=== PATIENT | female | born 1940 | race Caucasian/White ===

== ENCOUNTER 2021-11-17 14:12 | Inpatient (IN) ==
[2021-11-17 14:40] LABS: BILIRUBIN,URINE NEGATIVE (NEGATIVE); BLOOD/HEMOGLOBIN,URINE 1+ (NEGATIVE); GLUCOSE, URINE 1+ (NEGATIVE); KETONES,URINE 2+ (NEGATIVE); LEUKOCYTE ESTERASE ,URINE 2+ (NEGATIVE); NITRITES,URINE NEGATIVE (NEGATIVE); PROTEIN,URINE 2+ (NEGATIVE); UROBILINOGEN,URINE 1+ (NORMAL)
--- NOTE | 2021-11-17 14:55 | RAD ---
HISTORYShortness of breath, fever, recent COVID-19STUDYChest AP portableCOMPARISONNoneFINDINGSHeart is mildly enlarged. No congestive heart failure is noted. Aorta is calcified. Right paratracheal prominence is likely due to tortuous vascularity. There is subtle abnormal parenchymal density in the right lung base suspicious for a developing infiltrate. Follow-up of this area is recommended. The remainder of the lung tena are clear. No pleural effusion or pneumothorax is identified. Bony thorax is unremarkable.IMPRESSIONMild cardiomegaly without congestive heart failureSubtle increased density in the right lung base suspicious for developing infiltrate. Follow-up of this area is recommended.Electronically signed by: DEYVI BENSON (Nov 17, 2021 14:54:03)
--- NOTE | 2021-11-17 14:55 | DR.DIZZY ---
HPI Time seen Time Seen by Provider: 11/17/21 14:52 PCP Primary Care Physician: Pratik HPI Comment HPI Comment: An 81 y/o female who was brought into the ED at daughter's request. Pt states that she has felet dizzy like she would fall and had to hold unto items. She couldn't tell me how long this has been. She denies chest pain or SOB. The EMS staff informs me that her daughter had provided information about fever and confusion. THere was an appt. with her PCP today but the daughter couldn't get her dressed to go for that appt. She was recently diagnosed with COVID. Complaint Chief Complaint:: EMS states family called 911 due to patient having weakness and confusion. Pt recently had covid. Pt is alert and answers name, and current location. COVID-19 Coronavirus risk:travel/contact w/high risk person: No Has patient experienced Coronavirus symptoms: Yes Coronavirus symptoms experienced: Fever Nurses Notes Reviewed Nurses Notes Review: Yes Source History Provided: Patient and EMS Mode of Arrival Mode of Arrival: Stretcher Timing Onset of Chief Complaint: 11/17/21 Location of Weakness Weakness Location: Generalized Context Onset: At rest Does pt take pot. toxic medication?: No History of: None Stroke Symptoms: None Severity Severity: Normal activity level Associated signs and symptoms Associated Signs and Symptoms: Faintness, Imbalance and Weak PMH PMH Past Medical History: Yes Past Medical History: Hypertension Past Surgical History: Yes Surgical History: Hysterectomy and Ortho Surgery Family History History of Family Medical Conditions: Yes Family Medical History: Diabetes Mellitus Social History Does patient currently use any type of tobacco product: No Have you used tobacco products in the last 12 months: No Type of Tobacco Use: None Does any household member use tobacco: No Alcohol Use: None Do you use any recreational Drugs:: No Lives With: Family Lives Where: Home Travel Risk Coronavirus risk:travel/contact w/high risk person: No Has patient experienced Coronavirus symptoms: Yes Coronavirus symptoms experienced: Fever Infectious screening In the last 2 months have you had wt loss of >10#?: NO Have you had fever, night sweats or hemotysis?: No Have you traveled outside the country in the last 6 months?: No Isolation: Standard ROS Review of Systems Constitutional: Fever and Weakness Eyes: No Symptoms Reported ENTM: No Symptoms Reported Respiratoy: No Symptoms Reported Cardiovascular: No Symptoms Reported Gastrointestinal/Abdominal: No Symptoms Reported Genitourinary: No Symptoms Reported Neurological: No Symptoms Reported Musculoskeletal: No Symptoms Reported Integumentary: No Symptoms Reported Hematologic/Lymphatic: No Symptoms Reported Endocrine: No Symptoms Reported Psychiatric: No Symptoms Reported PE Vital Signs Vitals: Temperature 103.4 F Pulse Rate 94 Respiratory Rate 41 Blood Pressure [Left Arm] 132/68 Blood Pressure 141/69 O2 Sat by Pulse Oximetry 96 General Limitations: No Limitations General Appearance: Alert and In No Apparent Distress Head Head Exam: Normal Inspection, Atraumatic and Normocephalic Eyes Eye exam: Normal Appearance and EOMI ENT ENT Exam: Normal Exam, Normal Oropharynx, Normal External Ear Exam, Mucous Membranes Moist and TM's Normal Bilaterally Neck Neck Exam: Normal Inspection, Full ROM and Trachea Midline Chest Chest Inspection: Normal Inspection and Symmetric Chest Wall Rise Respiratory Respiratory Exam: Normal Lung Sounds Bilat Cardiovascular Cardiovascular Exam: Regular Rate, Normal Rhythm, Normal Heart Sounds, +S1 and +S2 Abdominal Exam Abdominal Exam: Normal Inspection, Normal Bowel Sounds and Soft Rectal Rectal Exam: Deferred Extremeties Extremities Exam: Normal Inspection and Full ROM Back Back Exam: Normal Inspection and Full ROM Neurologic Neurological Exam: Alert and CN II-XII Intact Patient Oriented To: Person and Place Speech: Fluid Speech Psychiatric Psychiatric Exam: Normal Affect and Normal Mood Skin Skin Exam: Intact MDM Differential Diagnosis Differential Diagnosis: Anemia, CVA, Dehydration, Electrolyte disorder and Peripheral Vertigo COURSE Treatment Treatment: Name: ASHLEY SZYMANSKI OAcct#: [id number]: [id number] : 1940Sex: FLocation: ER Order Number(s): [id number](s):CHEST, 1 VIEW Ordering Physician: LINDA PUGA Primary Care: Gino Christie Service Date: 11/17/21 Service Time: 1438 HISTORY Shortness of breath, fever, recent COVID-19 STUDY Chest AP portable COMPARISON None FINDINGS Heart is mildly enlarged. No congestive heart failure is noted. Aorta is calcified. Right paratracheal prominence is likely due to tortuous vascularity. There is subtle abnormal parenchymal density in the right lung base suspicious for a developing infiltrate. Follow-up of this area is recommended. The remainder of the lung tena are clear. No pleural effusion or pneumothorax is identified. Bony thorax is unremarkable. IMPRESSION Mild cardiomegaly without congestive heart failure Subtle increased density in the right lung base suspicious for developing infiltrate. Follow-up of this area is recommended. Electronically signed by: DEYVI BENSON (Nov 17, 2021 14:54:03) Report Electronically signed: 11/17/21 [id number] CC: Mumtaz Pugamanuelerica Reevaluation 1st: Unchanged Consultation Consultation Comments: Recommendation for admission was agreed to by Dr. Christie, after I spoke with him about the pt's. presentation, clinical and lab. findings. Education/Counseling Education/Counseling: Patient and Education Educated On: Treatment, Diagnosis, Prognosis and Needs for Follow Up ROR Labs Reviewed Result Diagrams: 11/17/21 15:00 11/17/21 15:00 Laboratory: WBC 9.3 X10^3/uL (3.6-10.0) 11/17/21 15:00 RBC 3.63 X10^6/uL (3.5-5.4) 11/17/21 15:00 Hgb 10.6 g/dL (12.0-16.0) L 11/17/21 15:00 Hct 30.5 % (36.0-47.0) L 11/17/21 15:00 MCV 84.2 fL (80.0-100.0) 11/17/21 15:00 MCH 29.3 pg (27.0-34.0) 11/17/21 15:00 MCHC 34.8 g/dL (33.0-35.0) 11/17/21 15:00 RDW 13.7 % (11.6-16.5) 11/17/21 15:00 Plt Count 322 X10^3/uL (150.0-450.0) 11/17/21 15:00 MPV 8.0 fL (7.4-11.0) 11/17/21 15:00 Neut % (Auto) 80.1 % (42.0-75.0) H 11/17/21 15:00 Lymph % (Auto) 10.7 % (21.0-51.0) L 11/17/21 15:00 [place] % (Auto) 8.7 % (0.0-13.0) 11/17/21 15:00 Eos % (Auto) 0.0 % (0.9-2.9) L 11/17/21 15:00 Baso % (Auto) 0.5 % (0.2-1.0) 11/17/21 15:00 Neut # (Auto) 7.4 x10^3/uL (2.2-4.8) H 11/17/21 15:00 Lymph # (Auto) 1.0 X10^3/uL (1.3-2.9) L 11/17/21 15:00 [place] # (Auto) 0.8 x10^3/uL (0.3-0.8) 11/17/21 15:00 Eos # (Auto) 0.0 x10^3/uL (0.0-0.2) 11/17/21 15:00 Baso # (Auto) 0.0 X10^3/uL (0.0-0.1) 11/17/21 15:00 Absolute Nucleated RBC 0.0 /100WBC 11/17/21 15:00 Sodium 134 mmol/L (136-145) L 11/17/21 15:00 Corrected Sodium TNP 11/17/21 15:00 Potassium 2.9 mmol/L (3.5-5.1) L* 11/17/21 15:00 Chloride 98 mmol/L (98-107) 11/17/21 15:00 Carbon Dioxide 27.8 mmol/L (21-32) 11/17/21 15:00 BUN 10 mg/dL (7-18) 11/17/21 15:00 Creatinine 0.97 mg/dL (0.55-1.02) 11/17/21 15:00 Est GFR (MDRD) Af Amer > 60 (>60) 11/17/21 15:00 Est GFR (MDRD) Non-Af 58 (>60) L 11/17/21 15:00 Glucose 109 mg/dL (65-99) H 11/17/21 15:00 Calcium 7.5 mg/dL (8.5-10.1) L 11/17/21 15:00 Corrected Calcium 8.5 mg/dL (8.5-10.1) 11/17/21 15:00 Total Bilirubin 1.30 mg/dL (0.2-1.0) H 11/17/21 15:00 AST 23 Units/L (15-37) 11/17/21 15:00 ALT 15 Units/L (12-78) 11/17/21 15:00 Alkaline Phosphatase 91 Units/L (46-116) 11/17/21 15:00 Creatine Kinase 90 Units/L (26-192) 11/17/21 15:00 CK-MB (CK-2) 0.6 ng/mL (0-4.0) 11/17/21 15:00 CK/CKMB % Calc 0.7 % (<4) 11/17/21 15:00 Troponin I High Sens 16.3 ng/L (4.0-60.0) 11/17/21 15:00 Total Protein 6.7 g/dL (6.4-8.2) 11/17/21 15:00 Albumin 2.8 g/dL (3.4-5.0) L 11/17/21 15:00 Globulin 3.9 g/dL (2.5-4.5) 11/17/21 15:00 Albumin/Globulin Ratio 0.7 Ratio (1.1-2.1) L 11/17/21 15:00 Specimen Type Catherized urine 11/17/21 14:29 Urine Color Yellow (YELLOW) 11/17/21 14: Urine Appearance Clear (CLEAR) 11/17/21 14:29 Urine pH 7.0 (5.0 - 8.0) 11/17/21 14:29 Ur Specific [place] 1.010 (1.000-1.030) 11/17/21 14:29 Urine Protein 2+ (NEGATIVE) 11/17/21 14: Urine Glucose (UA) 1+ (NEGATIVE) 11/17/21 14:29 Urine Ketones 2+ (NEGATIVE) 11/17/21 14:29 Urine Occult Blood 1+ (NEGATIVE) 11/17/21 14: Urine Nitrite Negative (NEGATIVE) 11/17/21 14: Urine Bilirubin Negative (NEGATIVE) 11/17/21 14: Urine Urobilinogen 1+ (NORMAL) 11/17/21 14:29 Ur Leukocyte Esterase 2+ (NEGATIVE) 11/17/21 14:29 Urine RBC 3-5 /HPF (0-3) A 11/17/21 14:29 Urine WBC 20-30 /HPF (0-5) A 11/17/21 14:29 Ur Squamous Epith Cells Few /HPF (NEGATIVE) 11/17/21 14:29 Amorphous Sediment Trace /HPF (NEGATIVE) 11/17/21 14:29 Urine Bacteria 1+ /HPF (NEGATIVE) 11/17/21 14:29 Hyaline Casts Rare /LPF (NEGATIVE) 11/17/21 14:29 Urine Mucus Few /HPF (NEGATIVE) 11/17/21 14:29 Ur Culture Indicated? Yes/culture set up 11/17/21 14:29 Influenza Type A Ag Negative-presumptive (NEGATIVE) 11/17/21 15:22 Influenza Type B Ag Negative-presumptive (NEGATIVE) 11/17/21 15:22 SARS CoV-2 RNA Rapid ALONA Positive (NEGATIVE) A 11/17/21 16:44 S. pyogenes (TEM-PCR) Not detected (NOT DETECT) 11/17/21 15:22 EKG Rate: 102 [place]: Normal Rhythm: ST Block: None Hypertrophy: None ST: Normal Opioid Opioid Risk Tool Age (Marcio box if 16-45): No History of Preadolescent Sexual Abuse: No Total: 0 Total Score Risk Category: Low Risk Copyright: [facility] predicting aberrant behaviors Diagnosis Discharge Problem: Weakness, Acute UTI Pneumonia Qualifiers: Pneumonia type: due to unspecified organism Laterality: right Lung location: lower lobe of lung Qualified Code(s): J18.9 - Pneumonia, unspecified organism Instructions Instructions: Urinary Tract Infection, Adult, [id number] Community-Acquired Pneumonia, Adult, [id number] ADDITIONAL NOTES Additional Notes Additional Notes: Name: ASHLEY SZYMANSKI OAcct#: [id number]: [id number] : 1940Sex: FLocation: ER Order Number(s): [id number](s):BRAIN W/O CON Ordering Physician: LINDA PUGA Primary Care: Gino Christie Service Date: 11/17/21 Service Time: 1453 EXAM: HEAD CT WITHOUT INTRAVENOUS CONTRAST HISTORY: Confusion. TECHNIQUE: Spiral axial CT images are obtained through the brain without the administration of intravenous contrast. Sagittal and coronal images are reformatted. DOSIMETRY: Total DLP 1294.1 mGycm; CTDI 70.8 mGy COMPARISON: None available. FINDINGS: There are extensive patchy parenchymal lucencies seen throughout the white matter tracts of the centrum semiovale, consistent with chronic sequela of atherosclerotic microvascular ischemic disease. Please note that small or subtle acute infarction can be obscured in this radiologic setting. Consider followup MRI with diffusion weighted imaging if clinically warranted. There is no gross acute territorial infarction seen. Nonspecific pineal gland calcification is seen. There is mild diffuse cerebral cortical atrophy, in keeping with the patient's advanced age. There is no intra-axial or extra-axial hemorrhage seen. No intra-axial or extra-axial mass lesions are noted. There is no hydrocephalus. There is no midline shift or other mass effect seen. The calvarium is intact. The partially imaged paranasal sinuses, middle ear cavities and mastoid air cells are clear. IMPRESSION: 1. 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 No gross acute infarction seen; however, small or subtle acute infarctions can be obscured in this radiologic setting. Consider followup MRI with diffusion weighted imaging if clinically warranted. 3. Mild diffuse cerebral cortical atrophy in keeping with the patient's advanced age. Electronically signed by: Nirmal Colin (Nov 17, 2021 15:48:48) Report Electronically signed: 11/17/21 3044 CC: Linda Puga
[2021-11-17 15:08] LABS: APPEARANCE,URINE CLEAR (CLEAR); COLOR,URINE YELLOW (YELLOW)
[2021-11-17 15:09] LABS: BACTERIA,URINE 1+ /HPF (NEGATIVE); HYALINE CASTS, URINE RARE /LPF (NEGATIVE); SQUAMOUS EPITHELIAL CELL,UR FEW /HPF (NEGATIVE)
[2021-11-17 15:28] LABS: BASOPHILS % (AUTO) 0.5 % (0.2-1.0); HEMATOCRIT 30.5 % (36.0-47.0); HEMOGLOBIN 10.6 g/dL (12.0-16.0); LYMPHOCYTES % (AUTO) 10.7 % (21.0-51.0); MEAN CORPUSCULAR HEMOGLOBIN 29.3 pg (27.0-34.0); MEAN CORPUSCULAR HGB CONC 34.8 g/dL (33.0-35.0); MEAN CORPUSCULAR VOLUME 84.2 fL (80.0-100.0); MONOCYTES # (AUTO) 0.8 x10^3/uL (0.3-0.8); MONOCYTES % (AUTO) 8.7 % (0.0-13.0); NEUTROPHILS # (AUTO) 7.4 x10^3/uL (2.2-4.8); NEUTROPHILS % (AUTO) 80.1 % (42.0-75.0); RED BLOOD COUNT 3.63 X10^6/uL (3.5-5.4); RED CELL DISTRIBUTION WIDTH 13.7 % (11.6-16.5); WHITE BLOOD COUNT 9.3 X10^3/uL (3.6-10.0)
[2021-11-17 15:46] LABS: ALANINE AMINOTRANSFERASE 15 Units/L (12-78); ALBUMIN 2.8 g/dL (3.4-5.0); ALKALINE PHOSPHATASE 91 Units/L (46-116); ASPARTATE AMINO TRANSFERASE 23 Units/L (15-37); BLOOD UREA NITROGEN 10 mg/dL (7-18); CALCIUM 7.5 mg/dL (8.5-10.1); CARBON DIOXIDE 27.8 mmol/L (21-32); CHLORIDE 98 mmol/L (98-107); COR CA(FOR HYPOALB) 8.5 mg/dL (8.5-10.1); CREATININE 0.97 mg/dL (0.55-1.02); SODIUM 134 mmol/L (136-145); TOTAL PROTEIN 6.7 g/dL (6.4-8.2); eGFR NON BLACK RACES 58 (>60)
--- NOTE | 2021-11-17 15:50 | CT ---
EXAM: HEAD CT WITHOUT INTRAVENOUS CONTRASTHISTORY: Confusion.TECHNIQUE: Spiral axial CT images are obtained through the brain without the administration of intravenous contrast. Sagittal and coronal images are reformatted.DOSIMETRY: Total DLP 1294.1 mGycm; CTDI 70.8 mGyCOMPARISON: None available.FINDINGS:There are extensive patchy parenchymal lucencies seen throughout the white matter tracts of the centrum semiovale, consistent with chronic sequela of atherosclerotic microvascular ischemic disease. Please note that small or subtle acute infarction can be obscured in this radiologic setting. Consider followup MRI with diffusion weighted imaging if clinically warranted. There is no gross acute territorial infarction seen. Nonspecific pineal gland calcification is seen.There is mild diffuse cerebral cortical atrophy, in keeping with the patient's advanced age. There is no intra-axial or extra-axial hemorrhage seen. No intra-axial or extra-axial mass lesions are noted. There is no hydrocephalus. There is no midline shift or other mass effect seen. The calvarium is intact. The partially imaged paranasal sinuses, middle ear cavities and mastoid air cells are clear.IMPRESSION:1. 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 No gross acute infarction seen; however, small or subtle acute infarctions can be obscured in this radiologic setting. Consider followup MRI with diffusion weighted imaging if clinically warranted.3. Mild diffuse cerebral cortical atrophy in keeping with the patient's advanced age.Electronically signed by: Nirmal Colin (Nov 17, 2021 15:48:48)
[2021-11-17 16:01] LABS: CKMB % 0.7 % (<4); CREATINE KINASE MB 0.6 ng/mL (0-4.0)
[2021-11-17] MEDS ORDERED: KLOR-CON ONE (16:28)
[2021-11-17] MEDS ORDERED: VIBRAMYCIN PO ONE ×2 (17:16→17:23)
[2021-11-17] MEDS ORDERED: ROCEPHIN VIAL 1 GRAM 1 G in NS 100 ML IV 100 ML IV ONE (17:17)
[2021-11-17] MEDS ORDERED: ROCEPHIN 1 GRAM IV PREMIX 1 G/50 ML IV.SOLN. IV ONE (17:23)
[2021-11-17 17:52] LABS: ALANINE AMINOTRANSFERASE 14 Units/L (12-78); ALBUMIN 2.7 g/dL (3.4-5.0); ALKALINE PHOSPHATASE 86 Units/L (46-116); ASPARTATE AMINO TRANSFERASE 20 Units/L (15-37); BLOOD UREA NITROGEN 10 mg/dL (7-18); CALCIUM 7.4 mg/dL (8.5-10.1); CARBON DIOXIDE 24.4 mmol/L (21-32); CHLORIDE 98 mmol/L (98-107); COR CA(FOR HYPOALB) 8.4 mg/dL (8.5-10.1); COR NA(FOR HYPERGLY) 134 mmol/L (136-145); CREATININE 0.99 mg/dL (0.55-1.02); SODIUM 132 mmol/L (136-145); TOTAL PROTEIN 6.5 g/dL (6.4-8.2); eGFR NON BLACK RACES 57 (>60)
[2021-11-17] MEDS ORDERED: PULMICORT NEB TX 0.5 MG NEB ONE (19:56)
[2021-11-17] MEDS ORDERED: BROVANA ONE (19:56)
[2021-11-17] MEDS ORDERED: ACCUNEB 1.25 MG NEBULE ONE (19:56)
[2021-11-17] MEDS ORDERED: KLOR-CON PO ONE (21:00)
[2021-11-17] MEDS ORDERED: VIBRAMYCIN 100 MG in NS 100 ML IV + SPIKE MINIBAG* 100 ML IV SCH (21:00)
[2021-11-17] MEDS ORDERED: NS 1/2 1,000 ML IV 1,000 ML IV ONE (21:23)
[2021-11-17] MEDS: ROBITUSSIN DM PO SCH (21:30)
[2021-11-17] MEDS: NS 1/2 1,000 ML IV 1,000 ML IV SCH (21:30)
[2021-11-17] MEDS: TYLENOL 325 MG TAB PO PRN (21:30)
[2021-11-17] MEDS: EXELON PO SCH (21:30)
[2021-11-17] MEDS: ACCUNEB 1.25 MG NEBULE NEB SCH (21:40)
[2021-11-17] MEDS: PULMICORT NEB TX 0.5 MG NEB SCH (21:40)
[2021-11-17] MEDS: BROVANA IN SCH (21:40)
[2021-11-18 04:53] LABS: BASOPHILS # (AUTO) 0.1 X10^3/uL (0.0-0.1); BASOPHILS % (AUTO) 0.7 % (0.2-1.0); EOSINOPHILS % (AUTO) 0.1 % (0.9-2.9); HEMATOCRIT 27.5 % (36.0-47.0); HEMOGLOBIN 9.6 g/dL (12.0-16.0); LYMPHOCYTES # (AUTO) 1.4 X10^3/uL (1.3-2.9); LYMPHOCYTES % (AUTO) 17.2 % (21.0-51.0); MEAN CORPUSCULAR HEMOGLOBIN 29.5 pg (27.0-34.0); MEAN CORPUSCULAR HGB CONC 34.8 g/dL (33.0-35.0); MEAN CORPUSCULAR VOLUME 84.7 fL (80.0-100.0); MEAN PLATELET VOLUME 8.1 fL (7.4-11.0); MONOCYTES # (AUTO) 1.2 x10^3/uL (0.3-0.8); MONOCYTES % (AUTO) 15.1 % (0.0-13.0); NEUTROPHILS # (AUTO) 5.5 x10^3/uL (2.2-4.8); NEUTROPHILS % (AUTO) 66.9 % (42.0-75.0); RED BLOOD COUNT 3.25 X10^6/uL (3.5-5.4); WHITE BLOOD COUNT 8.2 X10^3/uL (3.6-10.0)
[2021-11-18 05:03] LABS: ALANINE AMINOTRANSFERASE 13 Units/L (12-78); ALBUMIN 2.4 g/dL (3.4-5.0); ALKALINE PHOSPHATASE 73 Units/L (46-116); ASPARTATE AMINO TRANSFERASE 21 Units/L (15-37); BLOOD UREA NITROGEN 10 mg/dL (7-18); CALCIUM 7.4 mg/dL (8.5-10.1); CARBON DIOXIDE 26.6 mmol/L (21-32); CHLORIDE 102 mmol/L (98-107); COR CA(FOR HYPOALB) 8.7 mg/dL (8.5-10.1); COR NA(FOR HYPERGLY) 135 mmol/L (136-145); CREATININE 0.85 mg/dL (0.55-1.02); MAGNESIUM 1.9 mg/dL (1.7-2.9); SODIUM 134 mmol/L (136-145); TOTAL PROTEIN 5.8 g/dL (6.4-8.2); eGFR NON BLACK RACES > 60 (>60)
--- NOTE | 2021-11-18 05:52 | RAD ---
PROCEDURE: Chest X-ray 1 View .HISTORY: LUNG INFILTRATE .TECHNIQUE: AP view .COMPARISON: 11/17/2021.TECHNICAL QUALITY: Satisfactory .FINDINGS:Unremarkable cardio mediastinal silhouette and normal central vascularity.Consolidation right base slightly increased in density since previous study. Left lung tena clear. No pleural fluid.IMPRESSION:Increase in pneumonia right base.Electronically signed by: Romie Garcia (Nov 18, 2021 05:50:47)
[2021-11-18 05:53] LABS: ABG HCO3 27.6 mmol/L (22-26)
[2021-11-18] MEDS ORDERED: MICRO K EXTEN CAP 10 MEQ PO PRN (05:53)
[2021-11-18] MEDS ORDERED: POTASSIUM CHL 60 MEQ/NS 0.45% 500 ML IV PRN (05:53)
[2021-11-18] MEDS ORDERED: POTASSIUM CHL 40 MEQ/NS 0.45% 500 ML IV PRN (05:53)
[2021-11-18] MEDS ORDERED: K-DUR TAB 20 MEQ PO PRN (05:53)
[2021-11-18 05:54] LABS: ABG ALLEN TEST POS
[2021-11-18] MEDS: ACCUNEB 1.25 MG NEBULE NEB SCH ×3 (06:10→20:20)
[2021-11-18] MEDS: POTASSIUM CHLORIDE LIQ 20 MEQ UDC PO PRN (06:47)
[2021-11-18] MEDS ORDERED: NS 1/2 1,000 ML IV 1,000 ML IV ONE ×2 (08:44→21:27)
[2021-11-18] MEDS: NS 1/2 1,000 ML IV 1,000 ML IV SCH ×2 (08:50→21:58)
[2021-11-18] MEDS: ROBITUSSIN DM PO SCH ×4 (08:51→21:45)
[2021-11-18] MEDS: EXELON PO SCH ×2 (08:51→21:45)
[2021-11-18] MEDS: NORVASC TAB 5 MG PO SCH (08:51)
[2021-11-18] MEDS: VSL#3 PO SCH (08:51)
[2021-11-18] MEDS ORDERED: REMDESIVIR 200 MG in NS 250 ML IV 250 ML IV NR (08:52)
[2021-11-18] MEDS ORDERED: PHARMACY CONSULT - IVERMECTIN XX SCH (09:00)
[2021-11-18] MEDS ORDERED: VIBRAMYCIN 100 MG in D5W 250 ML IV 250 ML IV SCH (09:00)
[2021-11-18] MEDS ORDERED: ROCEPHIN 1 GRAM IV PREMIX 1 G/50 ML IV.SOLN. IV SCH (09:00)
[2021-11-18] MEDS ORDERED: KLOR-CON PO SCH (09:00)
[2021-11-18] MEDS ORDERED: VIBRAMYCIN 100 MG in NS 100 ML IV 100 ML IV SCH (09:00)
[2021-11-18] MEDS ORDERED: LUVOX PO SCH (09:00)
[2021-11-18] MEDS: PULMICORT NEB TX 0.5 MG NEB SCH ×2 (09:10→20:20)
[2021-11-18] MEDS: BROVANA IN SCH ×2 (09:10→20:20)
[2021-11-18] MEDS ORDERED: LOVENOX INJ 40 MG SYR SC SCH (10:00)
[2021-11-18] MEDS ORDERED: FORTAZ or TAZICEF VIAL INJ 1 G in NS 100 ML IV + SPIKE MINIBAG* 100 ML IV SCH (10:00)
--- NOTE | 2021-11-18 10:17 | DR.H&P ---
H&P - History & Physical for Day of: H&P Date: 11/17/21 - Chief Complaint Chief Complaint: DIZZINESS, WEAKNESS, FEVER, AMS - History of Present Illness History of Present Illness: IS A 81 YEAR OLD PATIENT OF OURS. SHE PRESENTED TO THE ER WITH PATIENTS DAUGHTER REPORTING THAT PATIENT HAS HAD DIZZINESS, WEAKNESS, FEVER, AMS. SYMPTOMS STARTED TWO DAYS PRIOR. SHE WAS DIAGNOSED WITH COVID-19 ALMOST 4 WEEKS AGO. SHE HAS HAD AN OCCASIONAL NON- PRODUCTIVE COUGH. SHE DENIES SHORTNESS OF BREATH. PMH INCLUDES HTN, ARTHRITIS. UPON EXAMINATION, PATIENT WAS ALERT TO NAME, , AND LOCATION. SHE WAS ABLE TO FOLLOW COMMANDS. SHE ARRIVED ON OXYGEN VIA NASAL CANNULA AT 4 LPM. WHEN TAKEN OFF OF OXYGEN TO ASSESS 02, SATURATIONS WERE 89%. WHEN OXYGEN WAS REPLACED AT 2 LPM, SATURATIONS INCREASED TO 94%. VITALS WERE: 103.4-101-20-89%RA-117/69. LABS WERE OBTAINED. WBC 9.3, RBC 3.63, HGB 10.6, HCT 30.5, D-DIMER 3.70, SODIUM 134, POTASSIUM 2.9, BUN 10, CREATININE 0.97, GLUCOSE 109, CALCIUM 7.5, TOTAL BILI 1.30, AST 23, ALT 15, ALK PHOS 91, TOTAL PROTEIN 6.7, ALBUMIN 2.8. CARDIAC ENZYMES WITHIN NORMAL LIMITS. URINALYSIS REVEALED: WBC 20-30, RBC 3-5, LEUKOCYTES 2+, BACTERIA 1+. A URINE CULTURE AND BLOOD CULTURES WERE SET UP. ABG REVEALED: PH 7.480, PC02 37, P02 53, HC03 27.6, 02 SAT 90, FI02 28.0. COVID-19 POSITIVE. INFLUENZA AND STREP NEGATIVE. A CHEST XRAY WAS OBTAINED AND REVEALED: Mild cardiomegaly without congestive heart failure. Subtle increased density in the right lung base suspicious for developing infiltrate. EKG REVEALED: SINUS TACHYCARDIA WITH HR 102. A BRAIN CT WITHOUT CONTRAST WAS OBTAINED AND REVEALED: 1. 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 2. No gross acute infarction seen; however, small or subtle acute infarctions can be obscured in this radiologic setting. Consider followup MRI with diffusion weighted imaging if clinically warranted.3. Mild diffuse cerebral cortical atrophy in keeping with the patient's advanced age. IN THE ER, SHE WAS GIVEN KLOR-CON 20MEQ PO X 2 DOSES, VIBRAMYCIN 100MG PO X 1, ROCEPHIN 1G IV X 1. SHE WAS ADMITTED TO THE HOSPITAL FOR FURTHER EVALUATION AND TREATMENT OF PNEUMONIA, UTI, HYPOKALEMIA, GENERALIZED WEAKNESS. SHE WAS STARTED ON 1/2NS AT 75 ML/HR, LEVAQUIN 500MG IV DAILY, FORTAZ 1G IV Q8H, ALBUTEROL NEBS TID, PULMICORT NEBS BID, BROVANA INHALER BID, ASCORBIC ACID 1G PO QID, ZINC 220MG PO BID, ROBITUSSIN DM QID, VSL 2 CAPS DAILY, THE POTASSIUM AND MAGNESIUM PROTOCOL, PEPCID 20MG PO BID, PROTONIX MG 40MG PO BID, DIFLUCAN 100MG PO DAILY, AND HER HOME MEDICATIONS OF NORVASC, AND EXELON WERE RESUMED. OTHERWISE, WE PLAN TO FOLLOW UP WITH AM LABS AND CHEST XRAY AND CONTINUE TO MONITOR. TIME SPENT ON CLINICAL ASSESSMENT, REVIEWING LABS AND IMAGING, DECISION MAKING, AND DOCUMENTATION GREATER THAN 75 MINUTES. - Past Medical History Past Medical History: Arthritis, Hypertension - Past Surgical History Surgical History: Ortho Surgery - Family History Family Medical History: Diabetes Mellitus, Hypertension - Social History Does patient currently use any type of tobacco product: No Have you used tobacco products in the last 12 months: No Type of Tobacco Use: None Does any household member use tobacco: No Alcohol Use: None Drug Use: None - Medications Home Medications: No Known Drug Allergies Allergy (Verified 12/06/18 19:18) CONTINUE taking the following medications rivastigmine tartrate 1.5 mg PO BID 11/17/21 [History] - Review of Systems Constitutional: See HPI, Fever, Chills, Weakness Eyes: No Symptoms Reported ENT: No Symptoms Reported Respiratory: Cough, Dry. denies: Shortness of Breath, SOB with Excertion, Wheezing Cardiovascular: Light Headedness Gastrointestinal: No Symptoms Reported Genitourinary: No Symptoms Reported Musculoskeletal: No Symptoms Reported Skin: No Symptoms Reported Neurological: Weakness, Confusion - Physical Exam Vital Signs: Temperature 97.6 F Pulse Rate 68 Respiratory Rate 16 Blood Pressure [Left Arm] 132/68 Blood Pressure 90/54 O2 Sat by Pulse Oximetry 98 Oriented: Normal, Time, Person, Place Eyes: Normal Ear: Normal Nose: Normal Throat: Normal Respiratory: Diminished Throughout Cardiovascular: Tachycardia : Normal Auscultation: Bowel Sounds: Normal Palpation: Normal Tenderness: Normal Skin: Normal Musculoskeletal: Normal Psychiatric: Normal Mood Description: Calm Affect: Normal Speech Pattern: Clear - Assessment/Plan (1) Pneumonia Qualifiers: Pneumonia type: due to unspecified organism Laterality: right Lung location: lower lobe of lung Qualified Code(s): J18.9 - Pneumonia, unspecified organism Status: Acute Plan: ADMIT, SUPPLEMENTAL OXYGEN, 1/2NS AT 75 ML/HR, LEVAQUIN 500MG IV DAILY, FORTAZ 1G IV Q8H, ALBUTEROL NEBS TID, PULMICORT NEBS BID, BROVANA INHALER BID, ASCORBIC ACID 1G PO QID, ZINC 220MG PO BID, ROBITUSSIN DM QID, VSL 2 CAPS DAILY, THE POTASSIUM AND MAGNESIUM PROTOCOL, PEPCID 20MG PO BID, PROTONIX MG 40MG PO BID, DIFLUCAN 100MG PO DAILY, RESUME HOME MEDS (2) Acute UTI Status: Acute (3) Fever Qualifiers: Fever type: unspecified Qualified Code(s): R50.9 - Fever, unspecified Status: Acute (4) COVID Status: Acute (5) AMS (altered mental status) Qualifiers: Altered mental status type: transient alteration of awareness Qualified Code(s): R40.4 - Transient alteration of awareness Status: Acute (6) Weakness Status: Acute - Allergies Allergies/Adverse Reactions: Allergies Allergy/AdvReac Type Severity Reaction Status Date / Time No Known Drug Allergies Allergy Verified 12/06/18 19:18
--- NOTE | 2021-11-18 10:37 | CT ---
HISTORY:Hypoxia, COVID-19Study: CTA chestComparison:Radiograph 11/18/2021, 11/17/2021Technique: Multiple axial images of the chest were obtained after the administration of IV contrast. 3D reconstructions were performed utilizing radial maximum intensity projection imaging. Dose reduction techniques including Automated Exposure Control (AEC) and adjustment of mA and kV were utilized.Findings:Contrast opacification of the pulmonary arteries is adequate to the level of the segmental branches. Exam is positive for acute pulmonary emboli in the distal right main pulmonary artery extending into upper and lower lobe segmental branches. There is moderate cardiomegaly. No pericardial effusion. There is aneurysmal dilation of the ascending thoracic aorta measuring up to 4.3 centimeters. There is a moderate right pleural effusion. Scattered ground-glass opacities are present likely related to provided history of COVID-19. There is more confluent infiltrate at the right lung base which may be due to pulmonary infarction. Airways are patient. No pneumothorax.There are multilevel degenerative changes of thoracic spine. There is a simple appearing cyst in the left hepatic lobe.IMPRESSION:Acute pulmonary emboli throughout the right lung with probable developing pulmonary infarction in the right lower lobe.Moderate sized right pleural effusion.Additional scattered multifocal ground-glass infiltrates likely due to provided history of COVID-19.Cardiomegaly with aneurysmal dilation of the ascending thoracic aorta measuring 4.3 centimeters.Electronically signed by: NISREEN CORDERO (Nov 18, 2021 10:35:52)
[2021-11-18] MEDS: DIFLUCAN PO SCH (10:49)
[2021-11-18] MEDS: PEPCID TAB 20 MG PO SCH ×2 (10:49→21:45)
[2021-11-18] MEDS: ZINC SULFATE PO SCH ×2 (10:50→21:45)
[2021-11-18] MEDS: LEVAQUIN PREMIX IV 500 MG 500 MG/100 ML BAG IV SCH (10:50)
[2021-11-18] MEDS: PROTONIX TAB 40 MG PO SCH ×2 (10:51→21:45)
[2021-11-18] MEDS: ALBUMIN HUMAN 25%- 100 ML 100 ML IV SCH (10:51)
[2021-11-18] MEDS: VITAMIN C PO SCH ×4 (10:51→21:45)
[2021-11-18] MEDS ORDERED: HEPARIN SODIUM INJ 5000 UNITS IVP ONE (13:04)
[2021-11-18] MEDS: HEPARIN SODIUM IN D5W 25,000 UNITS/500 ML BAG IV PRN (13:40)
[2021-11-18] MEDS ORDERED: SOLU-Medrol 125 MG VIAL IVP SCH (14:00)
[2021-11-18] MEDS: FORTAZ or TAZICEF VIAL INJ 1 G in NS 100 ML IV 100 ML IV SCH ×2 (15:12→21:45)
[2021-11-19] MEDS: TYLENOL 325 MG TAB PO PRN (00:21)
[2021-11-19 02:27] LABS: BASOPHILS # (AUTO) 0.1 X10^3/uL (0.0-0.1); BASOPHILS % (AUTO) 0.8 % (0.2-1.0); EOSINOPHILS % (AUTO) 0.3 % (0.9-2.9); HEMATOCRIT 26.1 % (36.0-47.0); HEMOGLOBIN 9.2 g/dL (12.0-16.0); LYMPHOCYTES # (AUTO) 1.4 X10^3/uL (1.3-2.9); LYMPHOCYTES % (AUTO) 18.7 % (21.0-51.0); MEAN CORPUSCULAR HEMOGLOBIN 29.8 pg (27.0-34.0); MEAN CORPUSCULAR HGB CONC 35.1 g/dL (33.0-35.0); MEAN CORPUSCULAR VOLUME 84.7 fL (80.0-100.0); MEAN PLATELET VOLUME 8.1 fL (7.4-11.0); MONOCYTES # (AUTO) 0.8 x10^3/uL (0.3-0.8); MONOCYTES % (AUTO) 11.2 % (0.0-13.0); NEUTROPHILS # (AUTO) 5.1 x10^3/uL (2.2-4.8); RED BLOOD COUNT 3.08 X10^6/uL (3.5-5.4); RED CELL DISTRIBUTION WIDTH 13.7 % (11.6-16.5); WHITE BLOOD COUNT 7.4 X10^3/uL (3.6-10.0)
[2021-11-19 02:36] LABS: ALANINE AMINOTRANSFERASE 31 Units/L (12-78); ALBUMIN 2.3 g/dL (3.4-5.0); ALKALINE PHOSPHATASE 83 Units/L (46-116); ASPARTATE AMINO TRANSFERASE 55 Units/L (15-37); BLOOD UREA NITROGEN 7 mg/dL (7-18); CALCIUM 6.9 mg/dL (8.5-10.1); CARBON DIOXIDE 22.7 mmol/L (21-32); CHLORIDE 100 mmol/L (98-107); COR CA(FOR HYPOALB) 8.3 mg/dL (8.5-10.1); COR NA(FOR HYPERGLY) 135 mmol/L (136-145); CREATININE 0.81 mg/dL (0.55-1.02); SODIUM 135 mmol/L (136-145); TOTAL PROTEIN 5.7 g/dL (6.4-8.2); eGFR NON BLACK RACES > 60 (>60)
[2021-11-19] MEDS: K-RIDER 10 MEQ/NS 100 ML 10 MEQ/100 ML BAG IV PRN ×4 (03:30→06:40)
[2021-11-19] MEDS: ACCUNEB 1.25 MG NEBULE NEB SCH ×3 (05:20→21:01)
[2021-11-19] MEDS ORDERED: FORTAZ or TAZICEF VIAL INJ ONE (05:21)
[2021-11-19] MEDS: FORTAZ or TAZICEF VIAL INJ 1 G in NS 100 ML IV 100 ML IV SCH ×3 (05:35→21:30)
[2021-11-19] MEDS: NORVASC TAB 5 MG PO SCH (08:28)
[2021-11-19] MEDS: DIFLUCAN PO SCH (08:37)
[2021-11-19] MEDS: ALBUMIN HUMAN 25%- 100 ML 100 ML IV SCH (08:37)
[2021-11-19] MEDS: PROTONIX TAB 40 MG PO SCH ×2 (08:38→21:30)
[2021-11-19] MEDS: ZINC SULFATE PO SCH ×2 (08:38→21:30)
[2021-11-19] MEDS: EXELON PO SCH ×2 (08:38→21:30)
[2021-11-19] MEDS: LEVAQUIN PREMIX IV 500 MG 500 MG/100 ML BAG IV SCH (08:38)
[2021-11-19] MEDS: ROBITUSSIN DM PO SCH ×4 (08:39→21:30)
[2021-11-19] MEDS: VSL#3 PO SCH (08:39)
[2021-11-19] MEDS: VITAMIN C PO SCH ×4 (08:39→21:30)
[2021-11-19] MEDS: PEPCID TAB 20 MG PO SCH ×2 (08:39→21:30)
[2021-11-19] MEDS ORDERED: REMDESIVIR 100 MG in NS 250 ML IV 250 ML IV SCH (09:00)
--- NOTE | 2021-11-19 09:42 | PCM.PROG ---
Progress Note - Progress Note for Day of Date of Exam: 11/19/21 - Subjective Subjective: WAS ADMITTED FOR TREATMENT OF PNEUMONIA, UTI, FEVER, COVID, AMS, WEAKNESS. HX OF HTN, ARTHRITIS. SHE INITIALLY TESTED POSITIVE FOR COVID ALMOST 4 WEEKS AGO. SHE WAS PLACED ON AN IV HEPARIN DRIP YESTERDAY AFTERNOON DUE TO CT FINDING OF A PULMONARY EMBOLI. TODAY, SHE IS ALERT AND ORIENTED, LYING IN BED ON MORNING ROUNDS. SHE CONTINUES WITH COMPLAINTS OF WEAKNESS AND INTERMITTENT SHORTNESS OF BREATH. SHE ALSO REPORTS FEELING ANXIOUS. DAUGHTER REPORTS THAT SHE HAS BEEN GRINDING HER TEETH THROUGHOUT THE DAY. SHE IS CURRENTLY ON OXYGEN VIA NASAL CANNULA AT 2 LPM. SATURATIONS HAVE REMAINED IN THE 90s THROUGHOUT THE NIGHT. ON EXAMINATION, HEART IS REGULAR IN RATE AND RHYTHM. BILATERAL LUNGS NOTED WITH DIMINISHED LUNG SOUNDS THROUGHOUT. ABDOMEN IS ROUND, SOFT, AND NON-TENDER WITH NORMAL BOWEL SOUNDS NOTED IN ALL QUADRANTS. HER VITALS THIS MORNING ARE: 99.7-66-19-97%-100/60. LABS WERE OBTAINED. WBC 7.4, HGB 9.2, HCT 26.1, SODIUM 135, POTASSIUM 3.0, BUN 7, CREATININE 0.81, GLUCOSE 120, CALCIUM 6.9, AST 55, CRP 108.70, TOTAL PROTEIN 5.7, ALBUMIN 2.3. URINE AND BLOOD CULTURES ARE PENDING. A CHEST CTA WAS OBTAINED YESTERDAY AND REVEALED: Acute pulmonary emboli throughout the right lung with probable developing pulmonary infarction in the right lower lobe. Moderate sized right pleural effusion. Additional scattered multifocal ground-glass infiltrates likely due to provided history of COVID-19. Cardiomegaly with aneurysmal dilation of the ascending thoracic aorta measuring 4.3 centimeters. SHE IS CURRENTLY RECEIVING 1/2NS AT 20 ML/HR, LEVAQUIN 500MG IV DAILY, FORTAZ 1G IV Q8H, HEPARIN IV DRIP, ALBUTEROL NEBS TID, PULMICORT NEBS BID, BROVANA INHALER BID, ASCORBIC ACID 1G PO QID, ZINC 220MG PO BID, ROBITUSSIN DM QID, VSL 2 CAPS DAILY, THE POTASSIUM AND MAGNESIUM PROTOCOL, PEPCID 20MG PO BID, PROTONIX MG 40MG PO BID, DIFLUCAN 100MG PO DAILY, AND HER HOME MEDICATIONS OF NORVASC, AND EXELON WERE RESUMED. WE WILL DISCONTINUE THE NORVASC DUE TO BLOOD PRSSURE TRENDING LOW. WE WILL ADD FLEXERIL 5MG PO BID. WE WILL OBTAIN AN ECHO. OTHERWISE, WE PLAN TO FOLLOW UP WITH AM LABS AND CONTINUE TO MONITOR. TIME SPENT ON CLINICAL ASSESSMENT, REVIEWING LABS AND IMAGING, DECISION MAKING, AND DOCUMENTATION GREATER THAN 75 MINUTES. - Past Medical Family Social History Past Med/Fam/Surg Hx: No changes since H&P Allergies: Allergies No Known Drug Allergies Allergy (Verified 12/06/18 19:18) - Review of Systems ROS: No change since H&P - Vital Signs and I&O's Vital Signs: Temperature 97.4 F Pulse Rate 74 Respiratory Rate 18 Blood Pressure [Left Arm] 132/68 Blood Pressure 109/59 O2 Sat by Pulse Oximetry 100 Intake and Output: Intake & Output 11/16/21 11/17/21 11/18/21 11/19/21 11:59 11:59 11:59 11:59 Intake Total 1320 / 1320 2950 / 2950 Balance 1320 / 1320 2950 / 2950 - Physical Exam Oriented: Normal, Time, Person, Place Eyes: Normal Ear: Normal Nose: Normal Throat: Normal Respiratory: Generalized, Diminished Cardiovascular: Normal : Normal Auscultation: Bowel Sounds: Normal Palpation: Normal Tenderness: Normal Skin: Normal Musculoskeletal: Normal Psychiatric: Normal Mood Description: Calm Affect: Normal Speech Pattern: Clear, Appropriate - Laboratory and Diagnostics Result Diagrams: 11/19/21 02:05 11/19/21 02:05 Labs: 11/17/21 15:06 Blood Blood Culture - Preliminary 11/17/21 15:00 Blood Blood Culture - Preliminary 11/17/21 14:29 Urine,Catheterized Urine Culture - Final Laboratory WBC 7.4 X10^3/uL (3.6-10.0) 11/19/21 02:05 RBC 3.08 X10^6/uL (3.5-5.4) L 11/19/21 02:05 Hgb 9.2 g/dL (12.0-16.0) L 11/19/21 02:05 Hct 26.1 % (36.0-47.0) L 11/19/21 02:05 MCV 84.7 fL (80.0-100.0) 11/19/21 02:05 MCH 29.8 pg (27.0-34.0) 11/19/21 02:05 MCHC 35.1 g/dL (33.0-35.0) H 11/19/21 02:05 RDW 13.7 % (11.6-16.5) 11/19/21 02:05 Plt Count 253 X10^3/uL (150.0-450.0) 11/19/21 02:05 MPV 8.1 fL (7.4-11.0) 11/19/21 02:05 Neut % (Auto) 69.0 % (42.0-75.0) 11/19/21 02:05 Lymph % (Auto) 18.7 % (21.0-51.0) L 11/19/21 02:05 [place] % (Auto) 11.2 % (0.0-13.0) 11/19/21 02:05 Eos % (Auto) 0.3 % (0.9-2.9) L 11/19/21 02:05 Baso % (Auto) 0.8 % (0.2-1.0) 11/19/21 02:05 Neut # (Auto) 5.1 x10^3/uL (2.2-4.8) H 11/19/21 02:05 Lymph # (Auto) 1.4 X10^3/uL (1.3-2.9) 11/19/21 02:05 [place] # (Auto) 0.8 x10^3/uL (0.3-0.8) 11/19/21 02:05 Eos # (Auto) 0.0 x10^3/uL (0.0-0.2) 11/19/21 02:05 Baso # (Auto) 0.1 X10^3/uL (0.0-0.1) 11/19/21 02:05 Absolute Nucleated RBC 0.0 /100WBC 11/19/21 02:05 PT 16.3 SECONDS (11.8-14.3) 11/18/21 12:06 INR Target Range - 11/18/21 12:06 INR 1.38 (0.8-1.3) H 11/18/21 12:06 APTT 72.1 SECONDS (22.9-36.5) H 11/19/21 02:05 PTT Comment - 11/19/21 02:05 D-Dimer 3.70 ug/ml (0.0-0.57) H* 11/18/21 04:20 Sample Site Rr 11/18/21 05:00 ABG pH 7.480 (7.35-7.45) H 11/18/21 05:00 ABG pCO2 37.0 mmHg (35.0-45.0) 11/18/21 05:00 ABG pO2 53.0 mmHg (80.0-100.0) L 11/18/21 05:00 ABG HCO3 27.6 mmol/L (22-26) H 11/18/21 05:00 ABG O2 Saturation 90.0 % (90-100) 11/18/21 05:00 ABG Base Excess 4.0 mmol/L (-2.0-2.0) H 11/18/21 05:00 Clint Test Pos 11/18/21 05:00 A-a Gradient 100.0 mmHg 11/18/21 05:00 FiO2 28.0 11/18/21 05:00 Blood Gas Comments Doc well ms 11/18/21 05:00 Sodium 135 mmol/L (136-145) L 11/19/21 02:05 Corrected Sodium 135 mmol/L (136-145) L 11/19/21 02:05 Potassium 3.0 mmol/L (3.5-5.1) L* 11/19/21 02:05 Chloride 100 mmol/L (98-107) 11/19/21 02:05 Carbon Dioxide 22.7 mmol/L (21-32) 11/19/21 02:05 BUN 7 mg/dL (7-18) 11/19/21 02:05 Creatinine 0.81 mg/dL (0.55-1.02) 11/19/21 02:05 Est GFR (MDRD) Af Amer > 60 (>60) 11/19/21 02:05 Est GFR (MDRD) Non-Af > 60 (>60) 11/19/21 02:05 Glucose 120 mg/dL (65-99) H 11/19/21 02:05 Calcium 6.9 mg/dL (8.5-10.1) L 11/19/21 02:05 Corrected Calcium 8.3 mg/dL (8.5-10.1) L 11/19/21 02:05 Magnesium 1.9 mg/dL (1.7-2.9) 11/18/21 04:20 Magnesium Cancelled 11/18/21 04:20 Total Bilirubin 0.70 mg/dL (0.2-1.0) 11/19/21 02:05 AST 55 Units/L (15-37) H 11/19/21 02:05 ALT 31 Units/L (12-78) 11/19/21 02:05 Alkaline Phosphatase 83 Units/L (46-116) 11/19/21 02:05 Creatine Kinase 90 Units/L (26-192) 11/17/21 15:00 CK-MB (CK-2) 0.6 ng/mL (0-4.0) 11/17/21 15:00 CK/CKMB % Calc 0.7 % (<4) 11/17/21 15:00 Troponin I High Sens 16.3 ng/L (4.0-60.0) 11/17/21 15:00 C-Reactive Protein 108.70 mg/L (0-3.0) H 11/19/21 02:05 B-Natriuretic Peptide 95.3 pg/mL (0-79) H 11/19/21 02:05 Total Protein 5.7 g/dL (6.4-8.2) L 11/19/21 02:05 Albumin 2.3 g/dL (3.4-5.0) L 11/19/21 02:05 Globulin 3.4 g/dL (2.5-4.5) 11/19/21 02:05 Albumin/Globulin Ratio 0.7 Ratio (1.1-2.1) L 11/19/21 02:05 Specimen Type Catherized urine 11/17/21 14:29 Urine Color Yellow (YELLOW) 11/17/21 14:29 Urine Appearance Clear (CLEAR) 11/17/21 14:29 Urine pH 7.0 (5.0 - 8.0) 11/17/21 14:29 Ur Specific [place] 1.010 (1.000-1.030) 11/17/21 14:29 Urine Protein 2+ (NEGATIVE) 11/17/21 14: Urine Glucose (UA) 1+ (NEGATIVE) 11/17/21 14: Urine Ketones 2+ (NEGATIVE) 11/17/21 14:29 Urine Occult Blood 1+ (NEGATIVE) 11/17/21 14:29 Urine Nitrite Negative (NEGATIVE) 11/17/21 14:29 Urine Bilirubin Negative (NEGATIVE) 11/17/21 14:29 Urine Urobilinogen 1+ (NORMAL) 11/17/21 14:29 Ur Leukocyte Esterase 2+ (NEGATIVE) 11/17/21 14:29 Urine RBC 3-5 /HPF (0-3) A 11/17/21 14:29 Urine WBC 20-30 /HPF (0-5) A 11/17/21 14:29 Ur Squamous Epith Cells Few /HPF (NEGATIVE) 11/17/21 14:29 Amorphous Sediment Trace /HPF (NEGATIVE) 11/17/21 14:29 Urine Bacteria 1+ /HPF (NEGATIVE) 11/17/21 14:29 Hyaline Casts Rare /LPF (NEGATIVE) 11/17/21 14:29 Urine Mucus Few /HPF (NEGATIVE) 11/17/21 14:29 Ur Culture Indicated? Yes/culture set up 11/17/21 14:29 Influenza Type A Ag Negative-presumptive (NEGATIVE) 11/17/21 15:22 Influenza Type B Ag Negative-presumptive (NEGATIVE) 11/17/21 15:22 SARS CoV-2 RNA Rapid ALONA Positive (NEGATIVE) A 11/17/21 16:44 S. pyogenes (TEM-PCR) Not detected (NOT DETECT) 11/17/21 15:22 - Plan (1) Pneumonia Status: Acute Qualifiers: Pneumonia type: due to unspecified organism Laterality: right Lung location: lower lobe of lung Qualified Code(s): J18.9 - Pneumonia, unspecified organism Plan: SUPPLEMENTAL OXYGEN, 1/2NS AT 75 ML/HR, LEVAQUIN 500MG IV DAILY, FORTAZ 1G IV Q8H, ALBUTEROL NEBS TID, PULMICORT NEBS BID, BROVANA INHALER BID, ASCORBIC ACID 1G PO QID, ZINC 220MG PO BID, ROBITUSSIN DM QID, VSL 2 CAPS DAILY, THE POTASSIUM AND MAGNESIUM PROTOCOL, PEPCID 20MG PO BID, PROTONIX MG 40MG PO BID, DIFLUCAN 100MG PO DAILY, RESUME HOME MEDS (2) Acute UTI Status: Acute (3) Fever Status: Acute Qualifiers: Fever type: unspecified Qualified Code(s): R50.9 - Fever, unspecified (4) COVID Status: Acute (5) AMS (altered mental status) Status: Acute Qualifiers: Altered mental status type: transient alteration of awareness Qualified Code(s): R40.4 - Transient alteration of awareness (6) Weakness Status: Acute
[2021-11-19] MEDS: PULMICORT NEB TX 0.5 MG NEB SCH ×2 (10:00→21:01)
[2021-11-19] MEDS: BROVANA IN SCH ×2 (10:00→21:01)
[2021-11-19] MEDS: FLEXERIL TAB 10 MG PO SCH ×2 (10:06→21:30)
--- NOTE | 2021-11-19 11:16 | RAD ---
HISTORYCOVID, SOB .brHTN, ORTHO, HYST.brSTUDYCHEST, 1 VIEWCOMPARISONChest x-ray dated November 18, 2021FINDINGSThe trachea is midline. The cardiac silhouette is unremarkable. No significant change in bilateral patchy airspace disease. No significant pleural effusion or pneumothorax. The bony thorax is unchanged.IMPRESSIONNo significant change.Electronically signed by: CLINT PURI (Nov 19, 2021 11:14:35)
[2021-11-19] MEDS: NS 1/2 1,000 ML IV 1,000 ML IV SCH (12:20)
[2021-11-19] MEDS: POTASSIUM CHLORIDE LIQ 20 MEQ UDC PO PRN (13:17)
[2021-11-19] MEDS: HEPARIN SODIUM IN D5W 25,000 UNITS/500 ML BAG IV PRN (15:56)
[2021-11-19] MEDS: KLOR-CON PO PRN (16:59)
[2021-11-19] MEDS: MAGNESIUM SULFATE 1 GRAM/100 mL PREMIX 1 G/100 ML BAG IV PRN ×2 (21:53→22:50)
[2021-11-20] MEDS: NS 1/2 1,000 ML IV 1,000 ML IV SCH ×3 (02:24→21:15)
[2021-11-20 05:18] LABS: BASOPHILS # (AUTO) 0.1 X10^3/uL (0.0-0.1); BASOPHILS % (AUTO) 0.9 % (0.2-1.0); EOSINOPHILS # (AUTO) 0.1 x10^3/uL (0.0-0.2); EOSINOPHILS % (AUTO) 2.1 % (0.9-2.9); HEMATOCRIT 27.9 % (36.0-47.0); HEMOGLOBIN 9.6 g/dL (12.0-16.0); LYMPHOCYTES # (AUTO) 1.5 X10^3/uL (1.3-2.9); LYMPHOCYTES % (AUTO) 22.4 % (21.0-51.0); MEAN CORPUSCULAR HEMOGLOBIN 29.3 pg (27.0-34.0); MEAN CORPUSCULAR HGB CONC 34.5 g/dL (33.0-35.0); MEAN CORPUSCULAR VOLUME 84.9 fL (80.0-100.0); MEAN PLATELET VOLUME 8.8 fL (7.4-11.0); MONOCYTES # (AUTO) 0.7 x10^3/uL (0.3-0.8); NEUTROPHILS # (AUTO) 4.3 x10^3/uL (2.2-4.8); NEUTROPHILS % (AUTO) 64.6 % (42.0-75.0); RED BLOOD COUNT 3.28 X10^6/uL (3.5-5.4); RED CELL DISTRIBUTION WIDTH 13.7 % (11.6-16.5); WHITE BLOOD COUNT 6.7 X10^3/uL (3.6-10.0)
[2021-11-20 05:30] LABS: ALANINE AMINOTRANSFERASE 32 Units/L (12-78); ALBUMIN 2.6 g/dL (3.4-5.0); ALKALINE PHOSPHATASE 86 Units/L (46-116); ASPARTATE AMINO TRANSFERASE 44 Units/L (15-37); BLOOD UREA NITROGEN 2 mg/dL (7-18); CALCIUM 7.8 mg/dL (8.5-10.1); CARBON DIOXIDE 20.9 mmol/L (21-32); CHLORIDE 103 mmol/L (98-107); COR CA(FOR HYPOALB) 8.9 mg/dL (8.5-10.1); COR NA(FOR HYPERGLY) 137 mmol/L (136-145); CREATININE 0.79 mg/dL (0.55-1.02); SODIUM 137 mmol/L (136-145); TOTAL PROTEIN 6.1 g/dL (6.4-8.2); eGFR NON BLACK RACES > 60 (>60)
[2021-11-20] MEDS: FORTAZ or TAZICEF VIAL INJ 1 G in NS 100 ML IV 100 ML IV SCH ×3 (05:32→21:15)
[2021-11-20] MEDS: ACCUNEB 1.25 MG NEBULE NEB SCH ×3 (05:34→20:25)
[2021-11-20] MEDS ORDERED: HEPARIN SODIUM INJ 5000 UNITS IVP ONE (06:05)
--- NOTE | 2021-11-20 06:27 | RAD ---
HISTORYSOBSTUDYCHEST, 1 [id number]/11/2022FINDINGSLINES AND TUBES: NoneHEART/ PULMONARY VASCULATURE: UnchangedLUNGS/ PLEURA: Right basilar airspace opacities are unchanged from prior study. Mild left basilar volume loss. No sizable pleural effusion. No pneumothoraxIMPRESSIONNo significant interval change.Electronically signed by: Jamshid Castro (Nov 20, 2021 06:27:03)
[2021-11-20] MEDS: KLOR-CON PO PRN (06:43)
[2021-11-20] MEDS: PULMICORT NEB TX 0.5 MG NEB SCH ×2 (08:20→20:25)
[2021-11-20] MEDS: BROVANA IN SCH ×2 (08:20→20:25)
[2021-11-20] MEDS: ALBUMIN HUMAN 25%- 100 ML 100 ML IV SCH (09:27)
[2021-11-20] MEDS: LEVAQUIN PREMIX IV 500 MG 500 MG/100 ML BAG IV SCH (09:27)
[2021-11-20] MEDS: VSL#3 PO SCH (09:28)
[2021-11-20] MEDS: VITAMIN C PO SCH ×4 (09:29→21:15)
[2021-11-20] MEDS: EXELON PO SCH ×2 (09:29→21:15)
[2021-11-20] MEDS: ROBITUSSIN DM PO SCH ×4 (09:29→21:15)
[2021-11-20] MEDS: PROTONIX TAB 40 MG PO SCH ×2 (09:29→21:15)
[2021-11-20] MEDS: ZINC SULFATE PO SCH ×2 (09:29→21:15)
[2021-11-20] MEDS: DIFLUCAN PO SCH (09:29)
[2021-11-20] MEDS: FLEXERIL TAB 10 MG PO SCH (09:30)
[2021-11-20] MEDS: PEPCID TAB 20 MG PO SCH ×2 (09:30→21:15)
[2021-11-20] MEDS ORDERED: SEROquel TAB 25 mg PO SCH (09:53)
[2021-11-20] MEDS: SEROquel TAB 25 mg PO SCH ×2 (11:22→20:05)
[2021-11-20] MEDS ORDERED: NS 1/2 1,000 ML IV 1,000 ML IV ONE (20:00)
[2021-11-21] MEDS: HEPARIN SODIUM IN D5W 25,000 UNITS/500 ML BAG IV PRN
[2021-11-21 05:07] LABS: ALANINE AMINOTRANSFERASE 33 Units/L (12-78); ALBUMIN 2.7 g/dL (3.4-5.0); ALKALINE PHOSPHATASE 86 Units/L (46-116); ASPARTATE AMINO TRANSFERASE 44 Units/L (15-37); BLOOD UREA NITROGEN 3 mg/dL (7-18); CALCIUM 8.2 mg/dL (8.5-10.1); CARBON DIOXIDE 19.5 mmol/L (21-32); CHLORIDE 106 mmol/L (98-107); COR CA(FOR HYPOALB) 9.2 mg/dL (8.5-10.1); COR NA(FOR HYPERGLY) 141 mmol/L (136-145); CREATININE 0.79 mg/dL (0.55-1.02); SODIUM 140 mmol/L (136-145); TOTAL PROTEIN 6.2 g/dL (6.4-8.2); eGFR NON BLACK RACES > 60 (>60)
[2021-11-21 05:19] LABS: BASOPHILS % (AUTO) 0.6 % (0.2-1.0); EOSINOPHILS # (AUTO) 0.2 x10^3/uL (0.0-0.2); EOSINOPHILS % (AUTO) 2.5 % (0.9-2.9); LYMPHOCYTES # (AUTO) 1.2 X10^3/uL (1.3-2.9); LYMPHOCYTES % (AUTO) 19.3 % (21.0-51.0); MEAN CORPUSCULAR HEMOGLOBIN 28.7 pg (27.0-34.0); MEAN CORPUSCULAR HGB CONC 33.2 g/dL (33.0-35.0); MEAN CORPUSCULAR VOLUME 86.6 fL (80.0-100.0); MEAN PLATELET VOLUME 9.3 fL (7.4-11.0); MONOCYTES # (AUTO) 0.6 x10^3/uL (0.3-0.8); MONOCYTES % (AUTO) 10.2 % (0.0-13.0); NEUTROPHILS # (AUTO) 4.1 x10^3/uL (2.2-4.8); NEUTROPHILS % (AUTO) 67.4 % (42.0-75.0); RED BLOOD COUNT 3.47 X10^6/uL (3.5-5.4); RED CELL DISTRIBUTION WIDTH 14.5 % (11.6-16.5); WHITE BLOOD COUNT 6.2 X10^3/uL (3.6-10.0)
[2021-11-21] MEDS: FORTAZ or TAZICEF VIAL INJ 1 G in NS 100 ML IV 100 ML IV SCH ×3 (05:59→21:05)
[2021-11-21] MEDS: NS 1/2 1,000 ML IV 1,000 ML IV SCH ×2 (06:00→20:02)
[2021-11-21] MEDS: ACCUNEB 1.25 MG NEBULE NEB SCH ×3 (06:13→20:50)
--- NOTE | 2021-11-21 06:27 | RAD ---
HISTORYSOB HTN, ORTHO, HYSTSTUDYCHEST, 1 [id number]/12/2022FINDINGSThe trachea is midline. The cardiac silhouette is unremarkable. The right basilar airspace disease unchanged. No pneumothorax.. The bony thorax is unremarkable.IMPRESSIONStable portable chest.Electronically signed by: Jose Hicks (Nov 21, 2021 06:25:22)
[2021-11-21] MEDS ORDERED: HEPARIN SODIUM INJ 5000 UNITS IVP ONE ×2 (06:35→21:02)
[2021-11-21] MEDS: BROVANA IN SCH ×2 (08:20→20:50)
[2021-11-21] MEDS: PULMICORT NEB TX 0.5 MG NEB SCH ×2 (08:20→20:50)
[2021-11-21] MEDS: PEPCID TAB 20 MG PO SCH ×2 (09:58→20:01)
[2021-11-21] MEDS: VSL#3 PO SCH (09:58)
[2021-11-21] MEDS: ALBUMIN HUMAN 25%- 100 ML 100 ML IV SCH (09:58)
[2021-11-21] MEDS: LEVAQUIN PREMIX IV 500 MG 500 MG/100 ML BAG IV SCH (09:58)
[2021-11-21] MEDS: DIFLUCAN PO SCH (09:59)
[2021-11-21] MEDS: ZINC SULFATE PO SCH ×2 (09:59→20:01)
[2021-11-21] MEDS: EXELON PO SCH ×2 (09:59→20:01)
[2021-11-21] MEDS: PROTONIX TAB 40 MG PO SCH ×2 (10:00→20:02)
[2021-11-21] MEDS: VITAMIN C PO SCH ×4 (10:00→20:01)
[2021-11-21] MEDS: ROBITUSSIN DM PO SCH ×4 (10:00→20:01)
[2021-11-21] MEDS: SEROquel TAB 25 mg PO SCH ×2 (14:06→20:01)
[2021-11-21] MEDS ORDERED: HEPARIN SODIUM INJ 5000 UNITS ONE (21:04)
[2021-11-22] MEDS: HEPARIN SODIUM IN D5W 25,000 UNITS/500 ML BAG IV PRN (01:27)
[2021-11-22 03:36] LABS: HEMATOCRIT 27.4 % (36.0-47.0); HEMOGLOBIN 9.5 g/dL (12.0-16.0); WHITE BLOOD COUNT 6.6 X10^3/uL (3.6-10.0)
[2021-11-22 03:39] LABS: BASOPHILS % (AUTO) 0.6 % (0.2-1.0); EOSINOPHILS # (AUTO) 0.2 x10^3/uL (0.0-0.2); EOSINOPHILS % (AUTO) 3.7 % (0.9-2.9); LYMPHOCYTES # (AUTO) 1.8 X10^3/uL (1.3-2.9); MEAN CORPUSCULAR HEMOGLOBIN 29.8 pg (27.0-34.0); MEAN CORPUSCULAR HGB CONC 34.9 g/dL (33.0-35.0); MEAN CORPUSCULAR VOLUME 85.3 fL (80.0-100.0); MONOCYTES # (AUTO) 0.7 x10^3/uL (0.3-0.8); MONOCYTES % (AUTO) 11.3 % (0.0-13.0); NEUTROPHILS # (AUTO) 3.7 x10^3/uL (2.2-4.8); NEUTROPHILS % (AUTO) 56.4 % (42.0-75.0); RED BLOOD COUNT 3.21 X10^6/uL (3.5-5.4)
[2021-11-22 03:45] LABS: ALANINE AMINOTRANSFERASE 41 Units/L (12-78); ALBUMIN 2.7 g/dL (3.4-5.0); ALKALINE PHOSPHATASE 87 Units/L (46-116); ASPARTATE AMINO TRANSFERASE 59 Units/L (15-37); BLOOD UREA NITROGEN 4 mg/dL (7-18); CALCIUM 7.9 mg/dL (8.5-10.1); CARBON DIOXIDE 22.5 mmol/L (21-32); CHLORIDE 106 mmol/L (98-107); COR CA(FOR HYPOALB) 8.9 mg/dL (8.5-10.1); COR NA(FOR HYPERGLY) 141 mmol/L (136-145); CREATININE 0.96 mg/dL (0.55-1.02); SODIUM 140 mmol/L (136-145); eGFR NON BLACK RACES 59 (>60)
[2021-11-22] MEDS: ACCUNEB 1.25 MG NEBULE NEB SCH ×3 (05:10→21:36)
[2021-11-22] MEDS: FORTAZ or TAZICEF VIAL INJ 1 G in NS 100 ML IV 100 ML IV SCH ×3 (05:32→21:57)
[2021-11-22] MEDS: POTASSIUM CHLORIDE LIQ 20 MEQ UDC PO PRN (05:32)
--- NOTE | 2021-11-22 05:37 | RAD ---
HISTORYSOB HTN, ORTHO, HYSTSTUDYCHEST, 1 [id number]/13/2022FINDINGSThe trachea is midline. The cardiac silhouette is unremarkable. Right basilar airspace disease unchanged. No pneumothorax.. The bony thorax is unremarkable.IMPRESSIONRight basilar airspace disease; no change from previous 11/21/2021Electronically signed by: Jose Hicks (Nov 22, 2021 05:36:01)
[2021-11-22] MEDS: MAGNESIUM SULFATE 1 GRAM/100 mL PREMIX 1 G/100 ML BAG IV PRN ×2 (06:17→09:10)
[2021-11-22] MEDS ORDERED: SEROquel TAB 25 mg PO SCH (09:00)
[2021-11-22] MEDS: ALBUMIN HUMAN 25%- 100 ML 100 ML IV SCH (09:10)
[2021-11-22] MEDS: ROBITUSSIN DM PO SCH ×4 (09:12→20:23)
[2021-11-22] MEDS: VSL#3 PO SCH (09:12)
[2021-11-22] MEDS: EXELON PO SCH ×2 (09:12→20:23)
[2021-11-22] MEDS: VITAMIN C PO SCH ×4 (09:13→20:24)
[2021-11-22] MEDS: ZINC SULFATE PO SCH ×2 (09:13→20:23)
[2021-11-22] MEDS: PROTONIX TAB 40 MG PO SCH ×2 (09:13→20:24)
[2021-11-22] MEDS: PEPCID TAB 20 MG PO SCH ×2 (09:14→20:26)
[2021-11-22] MEDS: DIFLUCAN PO SCH (09:14)
[2021-11-22] MEDS: PULMICORT NEB TX 0.5 MG NEB SCH ×2 (09:55→21:36)
[2021-11-22] MEDS: BROVANA IN SCH ×2 (09:55→21:36)
--- NOTE | 2021-11-22 11:08 | PCM.PROG ---
Progress Note - Progress Note for Day of Date of Exam: 11/20/21 - Subjective Subjective: WAS ADMITTED FOR TREATMENT OF PNEUMONIA, UTI, FEVER, COVID, AMS, WEAKNESS. HX OF HTN, ARTHRITIS. SHE INITIALLY TESTED POSITIVE FOR COVID ALMOST 4 WEEKS AGO. SHE REMAINS ON AN IV HEPARIN DRIP YESTERDAY AFTERNOON DUE TO CT FINDING OF A PULMONARY EMBOLI. TODAY, SHE IS ALERT AND ORIENTED, LYING IN BED ON MORNING ROUNDS. SHE CONTINUES WITH COMPLAINTS OF WEAKNESS AND INTERMITTENT SHORTNESS OF BREATH. SHE IS CURRENTLY ON OXYGEN VIA NASAL CANNULA AT 2 LPM. SATURATIONS HAVE REMAINED IN THE 90s THROUGHOUT THE NIGHT. ON EXAMINATION, HEART IS REGULAR IN RATE AND RHYTHM. BILATERAL LUNGS NOTED WITH DIMINISHED LUNG SOUNDS THROUGHOUT. ABDOMEN IS ROUND, SOFT, AND NON-TENDER WITH NORMAL BOWEL SOUNDS NOTED IN ALL QUADRANTS. HER VITALS THIS MORNING ARE: 98.5-89-17-98%-130/73. LABS WERE OBTAINED. ABNORMAL LAB VALUES INCLUDE THE FOLLOWING: RBC 3.28, HGB 9.6, HCT 27.9, CARBON DIOXIDE 20.9, BUN 2, GLUCOSE 111, CALCIUM 7.8, AST 44, CRP 85.20, BNP 190, TOTAL PROTEIN 6.1, ALBUMIN 2.6. URINE AND BLOOD CULTURES ARE PENDING. TODAYS CHEST XRAY REVEALED: Right basilar airspace opacities are unchanged from prior study. Mild left basilar volume loss. No sizable pleural effusion. No pneumothorax. ECHO WAS OBTANED YESTERDAY AND REVEALED AN EJECTION FRACTION OF 63%, SEVERE PULMONARY HTN, RVSP 51 mmHg. SHE IS CURRENTLY RECEIVING 1/2NS AT 20 ML/HR, LEVAQUIN 500MG IV DAILY, FORTAZ 1G IV Q8H, HEPARIN IV DRIP, ALBUTEROL NEBS TID, PULMICORT NEBS BID, BROVANA INHALER BID, ASCORBIC ACID 1G PO QID, ZINC 220MG PO BID, ROBITUSSIN DM QID, VSL 2 CAPS DAILY, FLEXERIL 5MG PO BID, THE POTASSIUM AND MAGNESIUM PROTOCOL, PEPCID 20MG PO BID, PROTONIX MG 40MG PO BID, DIFLUCAN 100MG PO DAILY. WE WILL CONTINUE WITH CURRENT PLAN OF CARE TODAY. OTHERWISE, WE PLAN TO FOLLOW UP WITH AM LABS AND CONTINUE TO MONITOR. TIME SPENT ON CLINICAL ASSESSMENT, REVIEWING LABS AND IMAGING, DECISION MAKING, AND DOCUMENTATION GREATER THAN 45 MINUTES. - Past Medical Family Social History Past Med/Fam/Surg Hx: No changes since H&P Allergies: Allergies No Known Drug Allergies Allergy (Verified 12/06/18 19:18) - Review of Systems ROS: No change since H&P - Vital Signs and I&O's Vital Signs: Temperature 98.7 F Pulse Rate 96 Respiratory Rate 18 Blood Pressure [Left Arm] 132/68 Blood Pressure 104/68 O2 Sat by Pulse Oximetry 99 Intake and Output: Intake & Output 11/19/21 11/20/21 11/21/21 11/22/21 10:59 10:59 11:59 11:59 Intake Total 3263 / 2676 Balance 721 / 2675 - Physical Exam Oriented: Normal, Time, Person, Place Eyes: Normal Ear: Normal Nose: Normal Throat: Normal Respiratory: Generalized, Diminished Cardiovascular: Normal : Normal Auscultation: Bowel Sounds: Normal Palpation: Normal Tenderness: Normal Skin: Normal Musculoskeletal: Normal Psychiatric: Normal Mood Description: Calm Affect: Normal Speech Pattern: Clear, Appropriate - Laboratory and Diagnostics Result Diagrams: 11/22/21 03:15 11/22/21 03:15 Labs: 11/17/21 15:06 Blood Blood Culture - Preliminary 11/17/21 15:00 Blood Blood Culture - Preliminary 11/17/21 14:29 Urine,Catheterized Urine Culture - Final Laboratory WBC 6.6 X10^3/uL (3.6-10.0) 11/22/21 03:15 RBC 3.21 X10^6/uL (3.5-5.4) L 11/22/21 03:15 Hgb 9.5 g/dL (12.0-16.0) L 11/22/21 03:15 Hct 27.4 % (36.0-47.0) L 11/22/21 03:15 MCV 85.3 fL (80.0-100.0) 11/22/21 03:15 MCH 29.8 pg (27.0-34.0) 11/22/21 03:15 MCHC 34.9 g/dL (33.0-35.0) 11/22/21 03:15 RDW 14.0 % (11.6-16.5) 11/22/21 03:15 Plt Count 346 X10^3/uL (150.0-450.0) 11/22/21 03:15 MPV 8.0 fL (7.4-11.0) 11/22/21 03:15 Neut % (Auto) 56.4 % (42.0-75.0) 11/22/21 03:15 Lymph % (Auto) 28.0 % (21.0-51.0) 11/22/21 03:15 [place] % (Auto) 11.3 % (0.0-13.0) 11/22/21 03:15 Eos % (Auto) 3.7 % (0.9-2.9) H 11/22/21 03:15 Baso % (Auto) 0.6 % (0.2-1.0) 11/22/21 03:15 Neut # (Auto) 3.7 x10^3/uL (2.2-4.8) 11/22/21 03:15 Lymph # (Auto) 1.8 X10^3/uL (1.3-2.9) 11/22/21 03:15 [place] # (Auto) 0.7 x10^3/uL (0.3-0.8) 11/22/21 03:15 Eos # (Auto) 0.2 x10^3/uL (0.0-0.2) 11/22/21 03:15 Baso # (Auto) 0.0 X10^3/uL (0.0-0.1) 11/22/21 03:15 Absolute Nucleated RBC 0.0 /100WBC 11/22/21 03:15 PT 16.3 SECONDS (11.8-14.3) 11/18/21 12:06 INR Target Range - 11/18/21 12:06 INR 1.38 (0.8-1.3) H 11/18/21 12:06 APTT 111.7 SECONDS (22.9-36.5) H 11/22/21 10:01 PTT Comment - 11/22/21 10:01 D-Dimer 3.70 ug/ml (0.0-0.57) H* 11/18/21 04:20 Sample Site Rr 11/18/21 05:00 ABG pH 7.480 (7.35-7.45) H 11/18/21 05:00 ABG pCO2 37.0 mmHg (35.0-45.0) 11/18/21 05:00 ABG pO2 53.0 mmHg (80.0-100.0) L 11/18/21 05:00 ABG HCO3 27.6 mmol/L (22-26) H 11/18/21 05:00 ABG O2 Saturation 90.0 % (90-100) 11/18/21 05:00 ABG Base Excess 4.0 mmol/L (-2.0-2.0) H 11/18/21 05:00 Clint Test Pos 11/18/21 05:00 A-a Gradient 100.0 mmHg 11/18/21 05:00 FiO2 28.0 11/18/21 05:00 Blood Gas Comments Doc well ms 11/18/21 05:00 Sodium 140 mmol/L (136-145) 11/22/21 03:15 Corrected Sodium 141 mmol/L (136-145) 11/22/21 03:15 Potassium 3.5 mmol/L (3.5-5.1) 11/22/21 03:15 Chloride 106 mmol/L (98-107) 11/22/21 03:15 Carbon Dioxide 22.5 mmol/L (21-32) 11/22/21 03:15 BUN 4 mg/dL (7-18) L 11/22/21 03:15 Creatinine 0.96 mg/dL (0.55-1.02) 11/22/21 03:15 Est GFR (MDRD) Af Amer > 60 (>60) 11/22/21 03:15 Est GFR (MDRD) Non-Af 59 (>60) 11/22/21 03:15 Glucose 122 mg/dL (65-99) H 11/22/21 03:15 Calcium 7.9 mg/dL (8.5-10.1) L 11/22/21 03:15 Corrected Calcium 8.9 mg/dL (8.5-10.1) 11/22/21 03:15 Magnesium 1.9 mg/dL (1.7-2.9) 11/22/21 03:05 Total Bilirubin 0.30 mg/dL (0.2-1.0) 11/22/21 03:15 AST 59 Units/L (15-37) H 11/22/21 03:15 ALT 41 Units/L (12-78) 11/22/21 03:15 Alkaline Phosphatase 87 Units/L (46-116) 11/22/21 03:15 Creatine Kinase 90 Units/L (26-192) 11/17/21 15:00 CK-MB (CK-2) 0.6 ng/mL (0-4.0) 11/17/21 15:00 CK/CKMB % Calc 0.7 % (<4) 11/17/21 15:00 Troponin I High Sens 16.3 ng/L (4.0-60.0) 11/17/21 15:00 C-Reactive Protein 42.20 mg/L (0-3.0) H 11/22/21 03:15 B-Natriuretic Peptide 168 pg/mL (0-79) H 11/22/21 03:15 Total Protein 6.0 g/dL (6.4-8.2) L 11/22/21 03:15 Albumin 2.7 g/dL (3.4-5.0) L 11/22/21 03:15 Globulin 3.3 g/dL (2.5-4.5) 11/22/21 03:15 Albumin/Globulin Ratio 0.8 Ratio (1.1-2.1) L 11/22/21 03:15 Specimen Type Catherized urine 11/17/21 14:29 Urine Color Yellow (YELLOW) 11/17/21 14: Urine Appearance Clear (CLEAR) 11/17/21 14: Urine pH 7.0 (5.0 - 8.0) 11/17/21 14:29 Ur Specific [place] 1.010 (1.000-1.030) 11/17/21 14:29 Urine Protein 2+ (NEGATIVE) 11/17/21 14: Urine Glucose (UA) 1+ (NEGATIVE) 11/17/21 14: Urine Ketones 2+ (NEGATIVE) 11/17/21 14: Urine Occult Blood 1+ (NEGATIVE) 11/17/21 14: Urine Nitrite Negative (NEGATIVE) 11/17/21 14: Urine Bilirubin Negative (NEGATIVE) 11/17/21 14: Urine Urobilinogen 1+ (NORMAL) 11/17/21 14:29 Ur Leukocyte Esterase 2+ (NEGATIVE) 11/17/21 14: Urine RBC 3-5 /HPF (0-3) A 11/17/21 14:29 Urine WBC 20-30 /HPF (0-5) A 11/17/21 14:29 Ur Squamous Epith Cells Few /HPF (NEGATIVE) 11/17/21 14:29 Amorphous Sediment Trace /HPF (NEGATIVE) 11/17/21 14:29 Urine Bacteria 1+ /HPF (NEGATIVE) 11/17/21 14:29 Hyaline Casts Rare /LPF (NEGATIVE) 11/17/21 14:29 Urine Mucus Few /HPF (NEGATIVE) 11/17/21 14:29 Ur Culture Indicated? Yes/culture set up 11/17/21 14:29 Influenza Type A Ag Negative-presumptive (NEGATIVE) 11/17/21 15:22 Influenza Type B Ag Negative-presumptive (NEGATIVE) 11/17/21 15:22 SARS CoV-2 RNA Rapid [place] Positive (NEGATIVE) A 11/17/21 16:44 S. pyogenes (TEM-PCR) Not detected (NOT DETECT) 11/17/21 15:22 - Plan (1) Pneumonia Status: Acute Qualifiers: Pneumonia type: due to unspecified organism Laterality: right Lung location: lower lobe of lung Qualified Code(s): J18.9 - Pneumonia, unspecified organism Plan: SUPPLEMENTAL OXYGEN, 1/2NS AT 75 ML/HR, LEVAQUIN 500MG IV DAILY, FORTAZ 1G IV Q8H, ALBUTEROL NEBS TID, PULMICORT NEBS BID, BROVANA INHALER BID, ASCORBIC ACID 1G PO QID, ZINC 220MG PO BID, ROBITUSSIN DM QID, VSL 2 CAPS DAILY, FLEXERIL 5MG PO BID, THE POTASSIUM AND MAGNESIUM PROTOCOL, PEPCID 20MG PO BID, PROTONIX MG 40MG PO BID, DIFLUCAN 100MG PO DAILY, RESUME HOME MEDS (2) Acute UTI Status: Acute (3) Fever Status: Acute Qualifiers: Fever type: unspecified Qualified Code(s): R50.9 - Fever, unspecified (4) COVID Status: Acute (5) AMS (altered mental status) Status: Acute Qualifiers: Altered mental status type: transient alteration of awareness Qualified Code(s): R40.4 - Transient alteration of awareness (6) Weakness Status: Acute
[2021-11-22] MEDS: CARDIZEM CD 120 MG 24-HR PO SCH (11:10)
--- NOTE | 2021-11-22 11:14 | CT ---
HISTORYCOVID, PE, SOBSTUDYCTA [id number]/10/2022TECHNIQUEAngiog raphael protocol was performed after the administration of intravenous contrast. 3D MIPS images were performed.. CT scan was performed following ALARA (As low as Reasonably Achievable).Coronal and Sagittal reformatted images were performed.FINDINGSThe thyroid gland is no enlarged there is no axillary adenopathy. There is again seen a sub carinal lymph node measuring in short axis approximately 1.2 centimeters. There is enlargement of the ascending aorta measures approximately 4.3 centimeters unchanged since prior study.There is no pericardial effusions. There has been interval increase of the right pleural effusion a, small to moderate in the current study.There is no adrenal masses. The spleen is no enlarged. The previously seen filling defect in the distal right lower lobe pulmonary artery is no longer seen; however there is some motion artifact through the area. There is no evidence of new filling defect.Lung windows there is no evidence of pneumothorax or pneumomediastinum, there has been interval improvement of previously seen nodular alveolar radiopacity in the left upper lobe, there is atelectasis at the right lower lobe.Bone windows no evidence of aggressive bone lesions.IMPRESSIONInterval resolution of previously seen filling defects in the right lower lobe, no new filling defects are seenInterval increase in size of right pleural effusion, that appears small to moderate in the current study projecting in the depending right abimbola thoraxStable 4.3 centimeters dilatation of the ascending aortaElectronically signed by: Karin Bates (Nov 22, 2021 11:12:53)
[2021-11-22] MEDS: LEVAQUIN PREMIX IV 500 MG 500 MG/100 ML BAG IV SCH (12:12)
[2021-11-22] MEDS: NS 1/2 1,000 ML IV 1,000 ML IV SCH (18:19)
[2021-11-22] MEDS ORDERED: SEROquel TAB 25 mg PO ONE (19:39)
[2021-11-22] MEDS: SEROquel TAB 25 mg PO SCH (20:23)
[2021-11-23] MEDS: NS 1/2 1,000 ML IV 1,000 ML IV SCH ×3 (00:11→14:58)
[2021-11-23] MEDS: HEPARIN SODIUM IN D5W 25,000 UNITS/500 ML BAG IV PRN (00:14)
[2021-11-23 05:01] LABS: BASOPHILS % (AUTO) 0.6 % (0.2-1.0); EOSINOPHILS # (AUTO) 0.3 x10^3/uL (0.0-0.2); EOSINOPHILS % (AUTO) 4.2 % (0.9-2.9); HEMATOCRIT 27.9 % (36.0-47.0); HEMOGLOBIN 9.7 g/dL (12.0-16.0); LYMPHOCYTES # (AUTO) 1.6 X10^3/uL (1.3-2.9); LYMPHOCYTES % (AUTO) 26.1 % (21.0-51.0); MEAN CORPUSCULAR HEMOGLOBIN 29.6 pg (27.0-34.0); MEAN CORPUSCULAR HGB CONC 34.7 g/dL (33.0-35.0); MEAN CORPUSCULAR VOLUME 85.4 fL (80.0-100.0); MEAN PLATELET VOLUME 7.9 fL (7.4-11.0); MONOCYTES # (AUTO) 0.8 x10^3/uL (0.3-0.8); NEUTROPHILS # (AUTO) 3.5 x10^3/uL (2.2-4.8); NEUTROPHILS % (AUTO) 56.1 % (42.0-75.0); RED BLOOD COUNT 3.27 X10^6/uL (3.5-5.4); RED CELL DISTRIBUTION WIDTH 14.7 % (11.6-16.5); WHITE BLOOD COUNT 6.2 X10^3/uL (3.6-10.0)
[2021-11-23 05:10] LABS: ALANINE AMINOTRANSFERASE 39 Units/L (12-78); ALKALINE PHOSPHATASE 89 Units/L (46-116); ASPARTATE AMINO TRANSFERASE 50 Units/L (15-37); BLOOD UREA NITROGEN 3 mg/dL (7-18); CALCIUM 8.2 mg/dL (8.5-10.1); CARBON DIOXIDE 21.2 mmol/L (21-32); CHLORIDE 105 mmol/L (98-107); COR NA(FOR HYPERGLY) 139 mmol/L (136-145); CREATININE 0.88 mg/dL (0.55-1.02); MAGNESIUM 2.2 mg/dL (1.7-2.9); SODIUM 139 mmol/L (136-145); TOTAL PROTEIN 6.4 g/dL (6.4-8.2); eGFR NON BLACK RACES > 60 (>60)
[2021-11-23] MEDS ORDERED: NS 1/2 1,000 ML IV 1,000 ML IV ONE (05:24)
--- NOTE | 2021-11-23 05:33 | RAD ---
HISTORYSOB HTN, ORTHO, HYST.brSTUDYCHEST, 1 [id number]/2022FINDINGSThe trachea is midline. The cardiac silhouette is unremarkable. Right basilar airspace disease unchanged. No pneumothorax.. The bony thorax is unremarkable.IMPRESSIONRight basilar airspace disease; no significant change from previous 11/22/2021.Electronically signed by: Jose Hicks (Nov 23, 2021 05:33:02)
[2021-11-23] MEDS: FORTAZ or TAZICEF VIAL INJ 1 G in NS 100 ML IV 100 ML IV SCH ×3 (05:49→21:58)
[2021-11-23] MEDS: KLOR-CON PO PRN (06:08)
[2021-11-23] MEDS: ACCUNEB 1.25 MG NEBULE NEB SCH ×3 (06:35→20:05)
[2021-11-23] MEDS: LEVAQUIN PREMIX IV 500 MG 500 MG/100 ML BAG IV SCH (08:45)
[2021-11-23] MEDS: PROTONIX TAB 40 MG PO SCH ×2 (08:45→20:34)
[2021-11-23] MEDS: ZINC SULFATE PO SCH ×2 (08:45→20:35)
[2021-11-23] MEDS: ROBITUSSIN DM PO SCH ×4 (08:45→20:34)
[2021-11-23] MEDS: CARDIZEM CD 120 MG 24-HR PO SCH (08:46)
[2021-11-23] MEDS: DIFLUCAN PO SCH (08:46)
[2021-11-23] MEDS: EXELON PO SCH ×2 (08:46→20:33)
[2021-11-23] MEDS: VITAMIN C PO SCH ×4 (08:46→20:35)
[2021-11-23] MEDS: PEPCID TAB 20 MG PO SCH ×2 (08:47→20:34)
[2021-11-23] MEDS: VSL#3 PO SCH (08:47)
[2021-11-23] MEDS: PULMICORT NEB TX 0.5 MG NEB SCH ×2 (09:16→20:05)
[2021-11-23] MEDS: BROVANA IN SCH ×2 (09:16→20:05)
[2021-11-23] MEDS ORDERED: LASIX IVP ONE (09:53)
--- NOTE | 2021-11-23 10:21 | PCM.PROG ---
Progress Note - Progress Note for Day of Date of Exam: 11/21/21 - Subjective Subjective: IS CURRENTLY BEING TREATED FOR PNEUMONIA, PULMONARY EMBOLISM, UTI, FEVER, COVID, AMS, WEAKNESS. HX OF HTN, ARTHRITIS. SHE INITIALLY TESTED POSITIVE FOR COVID ALMOST 4 WEEKS AGO. SHE REMAINS ON AN IV HEPARIN DRIP. TODAY, SHE IS ALERT AND ORIENTED, LYING IN BED ON MORNING ROUNDS. SHE CONTINUES WITH COMPLAINTS OF WEAKNESS AND INTERMITTENT SHORTNESS OF BREATH. SHE IS CURRENTLY ON OXYGEN VIA NASAL CANNULA AT 2 LPM. SATURATIONS HAVE REMAINED IN THE 90s THROUGHOUT THE NIGHT. ON EXAMINATION, HEART IS REGULAR IN RATE AND RHYTHM. BILATERAL LUNGS NOTED WITH DIMINISHED LUNG SOUNDS THROUGHOUT. ABDOMEN IS ROUND, SOFT, AND NON-TENDER WITH NORMAL BOWEL SOUNDS NOTED IN ALL QUADRANTS. HER VITALS THIS MORNING ARE: 98.5-89-17-98%-130/73. LABS WERE OBTAINED. ABNORMAL LAB VALUES INCLUDE THE FOLLOWING: RBC 3.47, HGB 10.0, HCT 30.0, CARBON DIOXIDE 19.5, BUN 3, GLUCOSE 141, CALCIUM 8.2, AST 44, CRP 68.10, BNP 206, TOTAL PROTEIN 6.2, ALBUMIN 2.7. URINE AND BLOOD CULTURES ARE PENDING. TODAYS CHEST XRAY REVEALED: The trachea is midline. The cardiac silhouette is unremarkable. The right basilar ai rspace disease unchanged. No pneumothorax. The bony thorax is unremarkable. ECHO REVEALED AN EJECTION FRACTION OF 63%, SEVERE PULMONARY HTN, RVSP 51 mmHg. SHE IS CURRENTLY RECEIVING 1/2NS AT 20 ML/HR, LEVAQUIN 500MG IV DAILY, FORTAZ 1G IV Q8H, HEPARIN IV DRIP, ALBUTEROL NEBS TID, PULMICORT NEBS BID, BROVANA INHALER BID, ASCORBIC ACID 1G PO QID, ZINC 220MG PO BID, ROBITUSSIN DM QID, VSL 2 CAPS DAILY, FLEXERIL 5MG PO BID, THE POTASSIUM AND MAGNESIUM PROTOCOL, PEPCID 20MG PO BID, PROTONIX MG 40MG PO BID, DIFLUCAN 100MG PO DAILY. WE WILL CONTINUE WITH CURRENT PLAN OF CARE TODAY. OTHERWISE, WE PLAN TO FOLLOW UP WITH AM LABS AND CONTINUE TO MONITOR. TIME SPENT ON CLINICAL ASSESSMENT, REVIEWING LABS AND IMAGING, DECISION MAKING, AND DOCUMENTATION GREATER THAN 45 MINUTES. - Past Medical Family Social History Past Med/Fam/Surg Hx: No changes since H&P Allergies: Allergies No Known Drug Allergies Allergy (Verified 12/06/18 19:18) - Review of Systems ROS: No change since H&P - Vital Signs and I&O's Vital Signs: Temperature 98.5 F Pulse Rate 84 Respiratory Rate 22 Blood Pressure [Left Arm] 132/68 Blood Pressure 107/56 O2 Sat by Pulse Oximetry 95 Intake and Output: Intake & Output 11/20/21 11/21/21 11/22/21 11/23/21 10:59 11:59 11:59 11:59 Intake Total 2676 / 2676 3100 / 3100 Balance 267 / 2676 3100 / 3100 - Physical Exam Oriented: Normal, Time, Person, Place Eyes: Normal Ear: Normal Nose: Normal Throat: Normal Respiratory: Generalized, Diminished Cardiovascular: Normal : Normal Auscultation: Bowel Sounds: Normal Palpation: Normal Tenderness: Normal Skin: Normal Musculoskeletal: Normal Psychiatric: Normal Mood Description: Calm Affect: Normal Speech Pattern: Clear, Appropriate - Laboratory and Diagnostics Result Diagrams: 11/23/21 04:35 11/23/21 04:35 Labs: 11/17/21 15:06 Blood Blood Culture - Final 11/17/21 15:00 Blood Blood Culture - Final 11/17/21 14:29 Urine,Catheterized Urine Culture - Final Laboratory WBC 6.2 X10^3/uL (3.6-10.0) 11/23/21 04:35 RBC 3.27 X10^6/uL (3.5-5.4) L 11/23/21 04:35 Hgb 9.7 g/dL (12.0-16.0) L 11/23/21 04:35 Hct 27.9 % (36.0-47.0) L 11/23/21 04:35 MCV 85.4 fL (80.0-100.0) 11/23/21 04:35 MCH 29.6 pg (27.0-34.0) 11/23/21 04:35 MCHC 34.7 g/dL (33.0-35.0) 11/23/21 04:35 RDW 14.7 % (11.6-16.5) 11/23/21 04:35 Plt Count 397 X10^3/uL (150.0-450.0) 11/23/21 04:35 MPV 7.9 fL (7.4-11.0) 11/23/21 04:35 Neut % (Auto) 56.1 % (42.0-75.0) 11/23/21 04:35 Lymph % (Auto) 26.1 % (21.0-51.0) 11/23/21 04:35 Craig % (Auto) 13.0 % (0.0-13.0) 11/23/21 04:35 Eos % (Auto) 4.2 % (0.9-2.9) H 11/23/21 04:35 Baso % (Auto) 0.6 % (0.2-1.0) 11/23/21 04:35 Neut # (Auto) 3.5 x10^3/uL (2.2-4.8) 11/23/21 04:35 Lymph # (Auto) 1.6 X10^3/uL (1.3-2.9) 11/23/21 04:35 Craig # (Auto) 0.8 x10^3/uL (0.3-0.8) 11/23/21 04:35 Eos # (Auto) 0.3 x10^3/uL (0.0-0.2) H 11/23/21 04:35 Baso # (Auto) 0.0 X10^3/uL (0.0-0.1) 11/23/21 04:35 Absolute Nucleated RBC 0.0 /100WBC 11/23/21 04:35 PT 16.3 SECONDS (11.8-14.3) 11/18/21 12:06 INR Target Range - 11/18/21 12:06 INR 1.38 (0.8-1.3) H 11/18/21 12:06 APTT 91.1 SECONDS (22.9-36.5) H 11/23/21 04:35 PTT Comment - 11/23/21 04:35 D-Dimer 3.70 ug/ml (0.0-0.57) H* 11/18/21 04:20 Sample Site Rr 11/18/21 05:00 ABG pH 7.480 (7.35-7.45) H 11/18/21 05:00 ABG pCO2 37.0 mmHg (35.0-45.0) 11/18/21 05:00 ABG pO2 53.0 mmHg (80.0-100.0) L 11/18/21 05:00 ABG HCO3 27.6 mmol/L (22-26) H 11/18/21 05:00 ABG O2 Saturation 90.0 % (90-100) 11/18/21 05:00 ABG Base Excess 4.0 mmol/L (-2.0-2.0) H 11/18/21 05:00 Clint Test Pos 11/18/21 05:00 A-a Gradient 100.0 mmHg 11/18/21 05:00 FiO2 28.0 11/18/21 05:00 Blood Gas Comments Doc well ms 11/18/21 05:00 Sodium 139 mmol/L (136-145) 11/23/21 04:35 Corrected Sodium 139 mmol/L (136-145) 11/23/21 04:35 Potassium 3.6 mmol/L (3.5-5.1) 11/23/21 04:35 Chloride 105 mmol/L (98-107) 11/23/21 04:35 Carbon Dioxide 21.2 mmol/L (21-32) 11/23/21 04:35 BUN 3 mg/dL (7-18) L 11/23/21 04:35 Creatinine 0.88 mg/dL (0.55-1.02) 11/23/21 04:35 Est GFR (MDRD) Af Amer > 60 (>60) 11/23/21 04:35 Est GFR (MDRD) Non-Af > 60 (>60) 11/23/21 04:35 Glucose 112 mg/dL (65-99) H 11/23/21 04:35 Calcium 8.2 mg/dL (8.5-10.1) L 11/23/21 04:35 Corrected Calcium 9.0 mg/dL (8.5-10.1) 11/23/21 04:35 Magnesium 2.2 mg/dL (1.7-2.9) 11/23/21 04:35 Total Bilirubin 0.40 mg/dL (0.2-1.0) 11/23/21 04:35 AST 50 Units/L (15-37) H 11/23/21 04:35 ALT 39 Units/L (12-78) 11/23/21 04:35 Alkaline Phosphatase 89 Units/L (46-116) 11/23/21 04:35 Creatine Kinase 90 Units/L (26-192) 11/17/21 15:00 CK-MB (CK-2) 0.6 ng/mL (0-4.0) 11/17/21 15:00 CK/CKMB % Calc 0.7 % (<4) 11/17/21 15:00 Troponin I High Sens 16.3 ng/L (4.0-60.0) 11/17/21 15:00 C-Reactive Protein 42.20 mg/L (0-3.0) H 11/22/21 03:15 B-Natriuretic Peptide 168 pg/mL (0-79) H 11/22/21 03:15 Total Protein 6.4 g/dL (6.4-8.2) 11/23/21 04:35 Albumin 3.0 g/dL (3.4-5.0) L 11/23/21 04:35 Globulin 3.4 g/dL (2.5-4.5) 11/23/21 04:35 Albumin/Globulin Ratio 0.9 Ratio (1.1-2.1) L 11/23/21 04:35 Specimen Type Catherized urine 11/17/21 14:29 Urine Color Yellow (YELLOW) 11/17/21 14:29 Urine Appearance Clear (CLEAR) 11/17/21 14:29 Urine pH 7.0 (5.0 - 8.0) 11/17/21 14:[address] 1.010 (1.000-1.030) 11/17/21 14:29 Urine Protein 2+ (NEGATIVE) 11/17/21 14:29 Urine Glucose (UA) 1+ (NEGATIVE) 11/17/21 14:29 Urine Ketones 2+ (NEGATIVE) 11/17/21 14:29 Urine Occult Blood 1+ (NEGATIVE) 11/17/21 14: Urine Nitrite Negative (NEGATIVE) 11/17/21 14: Urine Bilirubin Negative (NEGATIVE) 11/17/21 14:29 Urine Urobilinogen 1+ (NORMAL) 11/17/21 14:29 Ur Leukocyte Esterase 2+ (NEGATIVE) 11/17/21 14:29 Urine RBC 3-5 /HPF (0-3) A 11/17/21 14:29 Urine WBC 20-30 /HPF (0-5) A 11/17/21 14:29 Ur Squamous Epith Cells Few /HPF (NEGATIVE) 11/17/21 14:29 Amorphous Sediment Trace /HPF (NEGATIVE) 11/17/21 14:29 Urine Bacteria 1+ /HPF (NEGATIVE) 11/17/21 14:29 Hyaline Casts Rare /LPF (NEGATIVE) 11/17/21 14:29 Urine Mucus Few /HPF (NEGATIVE) 11/17/21 14:29 Ur Culture Indicated? Yes/culture set up 11/17/21 14:29 Influenza Type A Ag Negative-presumptive (NEGATIVE) 11/17/21 15:22 Influenza Type B Ag Negative-presumptive (NEGATIVE) 11/17/21 15:22 SARS CoV-2 RNA Rapid ALONA Positive (NEGATIVE) A 11/17/21 16:44 SARS-CoV-2 IgG Ab Positive (Negative) H 11/18/21 04:20 SARS-CoV-2 IgG (WHIT) 1 1.50 IV (<=0.99) H 11/18/21 04:20 S. pyogenes (TEM-PCR) Not detected (NOT DETECT) 11/17/21 15:22 - Plan (1) Pneumonia Status: Acute Qualifiers: Pneumonia type: due to unspecified organism Laterality: right Lung location: lower lobe of lung Qualified Code(s): J18.9 - Pneumonia, unspecified organism Plan: SUPPLEMENTAL OXYGEN, 1/2NS AT 75 ML/HR, HEPARIN DRIP, LEVAQUIN 500MG IV DAILY, FORTAZ 1G IV Q8H, ALBUTEROL NEBS TID, PULMICORT NEBS BID, BROVANA INHALER BID, ASCORBIC ACID 1G PO QID, ZINC 220MG PO BID, ROBITUSSIN DM QID, VSL 2 CAPS DAILY, FLEXERIL 5MG PO BID, THE POTASSIUM AND MAGNESIUM PROTOCOL, PEPCID 20MG PO BID, PROTONIX MG 40MG PO BID, DIFLUCAN 100MG PO DAILY, RESUME HOME MEDS (2) Pulmonary embolism Status: Acute Qualifiers: Pulmonary embolism type: unspecified Chronicity: acute Acute cor pul monale presence: without acute cor pulmonale Qualified Code(s): I26.99 - Other pulmonary embolism without acute cor pulmonale (3) Acute UTI Status: Acute (4) Fever Status: Acute Qualifiers: Fever type: unspecified Qualified Code(s): R50.9 - Fever, unspecified (5) COVID Status: Acute (6) AMS (altered mental status) Status: Acute Qualifiers: Altered mental status type: transient alteration of awareness Qualified Code(s): R40.4 - Transient alteration of awareness (7) Weakness Status: Acute
--- NOTE | 2021-11-23 10:25 | PCM.PROG ---
Progress Note - Progress Note for Day of Date of Exam: 11/22/21 - Subjective Subjective: WAS ADMITTED FOR TREATMENT OF PNEUMONIA, PULMONARY EMBOLISM, UTI, FEVER, COVID, AMS, WEAKNESS. HX OF HTN, ARTHRITIS. SHE INITIALLY TESTED POSITIVE FOR COVID ALMOST 4 WEEKS AGO. SHE REMAINS ON AN IV HEPARIN DRIP. TODAY, SHE IS ALERT AND ORIENTED, LYING IN BED ON MORNING ROUNDS. SHE CONTINUES WITH COMPLAINTS OF WEAKNESS AND INTERMITTENT SHORTNESS OF BREATH. SHE IS CURRENTLY ON OXYGEN VIA NASAL CANNULA AT 2 LPM. SATURATIONS HAVE REMAINED IN THE 90s THROUGHOUT THE NIGHT. HER HEARTRATE HAS BEEN ELEVATED THROUGHOUT THE NIGHT. ON EXAMINATION, SHE IS TACHYCARDIC WITH HR 115. BILATERAL LUNGS NOTED WITH DIMINISHED LUNG SOUNDS THROUGHOUT. ABDOMEN IS ROUND, SOFT, AND NON-TENDER WITH NORMAL BOWEL SOUNDS NOTED IN ALL QUADRANTS. HER VITALS THIS MORNING ARE: 98.5-76-22-91%-107/56. LABS WERE OBTAINED. ABNORMAL LAB VALUES INCLUDE THE FOLLOWING: RBC 3.21, HGB 9.5, HCT 27.4, BUN 4, GLUCOSE 122, CALCIUM 7.9, AST 59, CRP 42.20, BNP 168, TOTAL PROTEIN 6.0, ALBUMIN 2.7. URINE AND BLOOD CULTURES ARE PENDING. TODAYS CHEST XRAY REVEALED: Right basilar airspace disease; no change from previous 11/21/2021. ECHO REVEALED AN EJECTION FRACTION OF 63%, SEVERE PULMONARY HTN, RVSP 51 mmHg. SHE IS CURRENTLY RECEIVING 1/2NS AT 20 ML/HR, LEVAQUIN 500MG IV DAILY, FORTAZ 1G IV Q8H, HEPARIN IV DRIP, ALBUTEROL NEBS TID, PULMICORT NEBS BID, BROVANA INHALER BID, ASCORBIC ACID 1G PO QID, ZINC 220MG PO BID, ROBITUSSIN DM QID, VSL 2 CAPS DAILY, FLEXERIL 5MG PO BID, THE POTASSIUM AND MAGNESIUM PROTOCOL, PEPCID 20MG PO BID, PROTONIX MG 40MG PO BID, DIFLUCAN 100MG PO DAILY. WE WILL CONTINUE WITH CURRENT PLAN OF CARE TODAY AND ADD CARDIZEM CD 120MG PO DAILY DUE TO ELEVATED HEARTRATE. OTHERWISE, WE PLAN TO FOLLOW UP WITH AM LABS AND CONTINUE TO MONITOR. TIME SPENT ON CLINICAL ASSESSMENT, REVIEWING LABS AND IMAGING, DECISION MAKING, AND DOCUMENTATION GREATER THAN 45 MINUTES. - Past Medical Family Social History Past Med/Fam/Surg Hx: No changes since H&P Allergies: Allergies No Known Drug Allergies Allergy (Verified 12/06/18 19:18) - Review of Systems ROS: No change since H&P - Vital Signs and I&O's Vital Signs: Temperature 98.5 F Pulse Rate 84 Respiratory Rate 22 Blood Pressure [Left Arm] 132/68 Blood Pressure 107/56 O2 Sat by Pulse Oximetry 95 Intake and Output: Intake & Output 11/20/21 11/21/21 11/22/21 11/23/21 10:59 11:59 11:59 11:59 Intake Total 2676 / 2676 3100 / 3100 Balance 267 / 2676 3100 / 3100 - Physical Exam Oriented: Normal, Time, Person, Place Eyes: Normal Ear: Normal Nose: Normal Throat: Normal Respiratory: Generalized, Diminished Cardiovascular: Normal : Normal Auscultation: Bowel Sounds: Normal Tenderness: Normal Skin: Normal Musculoskeletal: Normal Psychiatric: Normal Mood Description: Calm Affect: Normal Speech Pattern: Clear, Appropriate - Laboratory and Diagnostics Result Diagrams: 11/23/21 04:35 11/23/21 04:35 Labs: 11/17/21 15:06 Blood Blood Culture - Final 11/17/21 15:00 Blood Blood Culture - Final 11/17/21 14:29 Urine,Catheterized Urine Culture - Final Laboratory WBC 6.2 X10^3/uL (3.6-10.0) 11/23/21 04:35 RBC 3.27 X10^6/uL (3.5-5.4) L 11/23/21 04:35 Hgb 9.7 g/dL (12.0-16.0) L 11/23/21 04:35 Hct 27.9 % (36.0-47.0) L 11/23/21 04:35 MCV 85.4 fL (80.0-100.0) 11/23/21 04:35 MCH 29.6 pg (27.0-34.0) 11/23/21 04:35 MCHC 34.7 g/dL (33.0-35.0) 11/23/21 04:35 RDW 14.7 % (11.6-16.5) 11/23/21 04:35 Plt Count 397 X10^3/uL (150.0-450.0) 11/23/21 04:35 MPV 7.9 fL (7.4-11.0) 11/23/21 04:35 Neut % (Auto) 56.1 % (42.0-75.0) 11/23/21 04:35 Lymph % (Auto) 26.1 % (21.0-51.0) 11/23/21 04:35 Bullitt % (Auto) 13.0 % (0.0-13.0) 11/23/21 04:35 Eos % (Auto) 4.2 % (0.9-2.9) H 11/23/21 04:35 Baso % (Auto) 0.6 % (0.2-1.0) 11/23/21 04:35 Neut # (Auto) 3.5 x10^3/uL (2.2-4.8) 11/23/21 04:35 Lymph # (Auto) 1.6 X10^3/uL (1.3-2.9) 11/23/21 04:35 Bullitt # (Auto) 0.8 x10^3/uL (0.3-0.8) 11/23/21 04:35 Eos # (Auto) 0.3 x10^3/uL (0.0-0.2) H 11/23/21 04:35 Baso # (Auto) 0.0 X10^3/uL (0.0-0.1) 11/23/21 04:35 Absolute Nucleated RBC 0.0 /100WBC 11/23/21 04:35 PT 16.3 SECONDS (11.8-14.3) 11/18/21 12:06 INR Target Range - 11/18/21 12:06 INR 1.38 (0.8-1.3) H 11/18/21 12:06 APTT 91.1 SECONDS (22.9-36.5) H 11/23/21 04:35 PTT Comment - 11/23/21 04:35 D-Dimer 3.70 ug/ml (0.0-0.57) H* 11/18/21 04:20 Sample Site Rr 11/18/21 05:00 ABG pH 7.480 (7.35-7.45) H 11/18/21 05:00 ABG pCO2 37.0 mmHg (35.0-45.0) 11/18/21 05:00 ABG pO2 53.0 mmHg (80.0-100.0) L 11/18/21 05:00 ABG HCO3 27.6 mmol/L (22-26) H 11/18/21 05:00 ABG O2 Saturation 90.0 % (90-100) 11/18/21 05:00 ABG Base Excess 4.0 mmol/L (-2.0-2.0) H 11/18/21 05:00 Clint Test Pos 11/18/21 05:00 A-a Gradient 100.0 mmHg 11/18/21 05:00 FiO2 28.0 11/18/21 05:00 Blood Gas Comments Doc well ms 11/18/21 05:00 Sodium 139 mmol/L (136-145) 11/23/21 04:35 Corrected Sodium 139 mmol/L (136-145) 11/23/21 04:35 Potassium 3.6 mmol/L (3.5-5.1) 11/23/21 04:35 Chloride 105 mmol/L (98-107) 11/23/21 04:35 Carbon Dioxide 21.2 mmol/L (21-32) 11/23/21 04:35 BUN 3 mg/dL (7-18) L 11/23/21 04:35 Creatinine 0.88 mg/dL (0.55-1.02) 11/23/21 04:35 Est GFR (MDRD) Af Amer > 60 (>60) 11/23/21 04:35 Est GFR (MDRD) Non-Af > 60 (>60) 11/23/21 04:35 Glucose 112 mg/dL (65-99) H 11/23/21 04:35 Calcium 8.2 mg/dL (8.5-10.1) L 11/23/21 04:35 Corrected Calcium 9.0 mg/dL (8.5-10.1) 11/23/21 04:35 Magnesium 2.2 mg/dL (1.7-2.9) 11/23/21 04:35 Total Bilirubin 0.40 mg/dL (0.2-1.0) 11/23/21 04:35 AST 50 Units/L (15-37) H 11/23/21 04:35 ALT 39 Units/L (12-78) 11/23/21 04:35 Alkaline Phosphatase 89 Units/L (46-116) 11/23/21 04:35 Creatine Kinase 90 Units/L (26-192) 11/17/21 15:00 CK-MB (CK-2) 0.6 ng/mL (0-4.0) 11/17/21 15:00 CK/CKMB % Calc 0.7 % (<4) 11/17/21 15:00 Troponin I High Sens 16.3 ng/L (4.0-60.0) 11/17/21 15:00 C-Reactive Protein 42.20 mg/L (0-3.0) H 11/22/21 03:15 B-Natriuretic Peptide 168 pg/mL (0-79) H 11/22/21 03:15 Total Protein 6.4 g/dL (6.4-8.2) 11/23/21 04:35 Albumin 3.0 g/dL (3.4-5.0) L 11/23/21 04:35 Globulin 3.4 g/dL (2.5-4.5) 11/23/21 04:35 Albumin/Globulin Ratio 0.9 Ratio (1.1-2.1) L 11/23/21 04:35 Specimen Type Catherized urine 11/17/21 14:29 Urine Color Yellow (YELLOW) 11/17/21 14: Urine Appearance Clear (CLEAR) 11/17/21 14:29 Urine pH 7.0 (5.0 - 8.0) 11/17/21 14:29 Ur Specific Greig 1.010 (1.000-1.030) 11/17/21 14:29 Urine Protein 2+ (NEGATIVE) 11/17/21 14: Urine Glucose (UA) 1+ (NEGATIVE) 11/17/21 14: Urine Ketones 2+ (NEGATIVE) 11/17/21 14: Urine Occult Blood 1+ (NEGATIVE) 11/17/21 14: Urine Nitrite Negative (NEGATIVE) 11/17/21 14: Urine Bilirubin Negative (NEGATIVE) 11/17/21 14: Urine Urobilinogen 1+ (NORMAL) 11/17/21 14:29 Ur Leukocyte Esterase 2+ (NEGATIVE) 11/17/21 14: Urine RBC 3-5 /HPF (0-3) A 11/17/21 14:29 Urine WBC 20-30 /HPF (0-5) A 11/17/21 14:29 Ur Squamous Epith Cells Few /HPF (NEGATIVE) 11/17/21 14:29 Amorphous Sediment Trace /HPF (NEGATIVE) 11/17/21 14:29 Urine Bacteria 1+ /HPF (NEGATIVE) 11/17/21 14:29 Hyaline Casts Rare /LPF (NEGATIVE) 11/17/21 14:29 Urine Mucus Few /HPF (NEGATIVE) 11/17/21 14:29 Ur Culture Indicated? Yes/culture set up 11/17/21 14:29 Influenza Type A Ag Negative-presumptive (NEGATIVE) 11/17/21 15:22 Influenza Type B Ag Negative-presumptive (NEGATIVE) 11/17/21 15:22 SARS CoV-2 RNA Rapid ALONA Positive (NEGATIVE) A 11/17/21 16:44 SARS-CoV-2 IgG Ab Positive (Negative) H 11/18/21 04:20 SARS-CoV-2 IgG (WHIT) 1 1.50 IV (<=0.99) H 11/18/21 04:20 S. pyogenes (TEM-PCR) Not detected (NOT DETECT) 11/17/21 15:22 - Plan (1) Pneumonia Status: Acute Qualifiers: Pneumonia type: due to unspecified organism Laterality: right Lung location: lower lobe of lung Qualified Code(s): J18.9 - Pneumonia, unspecified organism Plan: SUPPLEMENTAL OXYGEN, 1/2NS AT 75 ML/HR, HEPARIN DRIP, LEVAQUIN 500MG IV DAILY, FORTAZ 1G IV Q8H, ALBUTEROL NEBS TID, PULMICORT NEBS BID, BROVANA INHALER BID, CARDIZEM CD 120MG PO DAILY, ASCORBIC ACID 1G PO QID, ZINC 220MG PO BID, ROBITUSSIN DM QID, VSL 2 CAPS DAILY, FLEXERIL 5MG PO BID, THE POTASSIUM AND MAGNESIUM PROTOCOL, PEPCID 20MG PO BID, PROTONIX MG 40MG PO BID, DIFLUCAN 100MG PO DAILY, RESUME HOME MEDS (2) Pulmonary embolism Status: Acute Qualifiers: Pulmonary embolism type: unspecified Chronicity: acute Acute cor pulmonale presence: without acute cor pulmonale Qualified Code(s): I26.99 - Other pulmonary embolism without acute cor pulmonale (3) Acute UTI Status: Acute (4) Fever Status: Acute Qualifiers: Fever type: unspecified Qualified Code(s): R50.9 - Fever, unspecified (5) COVID Status: Acute (6) AMS (altered mental status) Status: Acute Qualifiers: Altered mental status type: transient alteration of awareness Qualified Code(s): R40.4 - Transient alteration of awareness (7) Weakness Status: Acute
--- NOTE | 2021-11-23 10:58 | PCM.PROG ---
Progress Note - Progress Note for Day of Date of Exam: 11/23/21 - Subjective Subjective: WAS ADMITTED FOR TREATMENT OF PNEUMONIA, PULMONARY EMBOLISM, UTI, FEVER, COVID, AMS, WEAKNESS. HX OF HTN, ARTHRITIS. SHE INITIALLY TESTED POSITIVE FOR COVID ALMOST 4 WEEKS AGO. SHE REMAINS ON AN IV HEPARIN DRIP. TODAY, SHE IS ALERT AND ORIENTED, LYING IN BED ON MORNING ROUNDS. SHE CONTINUES WITH COMPLAINTS OF WEAKNESS, BUT ADMITS TO IMPROVEMENT IN SYMPTOMS TODAY. SHE IS CURRENTLY ON OXYGEN VIA NASAL CANNULA AT 2 LPM. SATURATIONS HAVE REMAINED IN THE 90s THROUGHOUT THE NIGHT. HEARTRATE IS ELEVATED WITH ACTIVITY, BUT NORMAL WHEN RESTING IN BED. ON EXAMINATION, HEART IS REGULAR IN RATE AND RHYTHM. BILATERAL LUNGS NOTED WITH DIMINISHED LUNG SOUNDS THROUGHOUT. ABDOMEN IS ROUND, SOFT, AND NON-TENDER WITH NORMAL BOWEL SOUNDS NOTED IN ALL QUADRANTS. HER VITALS THIS MORNING ARE: 98.5-84-22-95%-107/56. LABS WERE OBTAINED. ABNORMAL LAB VALUES INCLUDE THE FOLLOWING: RBC 3.27, HGB 9.7, HCT 27.9, BUN 3, GLUCOSE 12, CALCIUM 8.2, AST 50, ALBUMIN 3.0. URINE AND BLOOD CULTURES ARE PENDING. TODAYS CHEST XRAY REVEALED: Right basilar airspace disease; no significant change from previous 11/22/2021. ECHO REVEALED AN EJECTION FRACTION OF 63%, SEVERE PULMONARY HTN, RVSP 51 mmHg. CHEST CTA WAS REPEATED YESTERDAY AND REVEALED: Interval resolution of previously seen filling defects in the right lower lobe, no new filling defects are seen. Interval increase in size of right pleural effusion, that appears small to moderate in the current study projecting in the depending right abimbola thorax. Stable 4.3 centimeters dilatation of the ascending aorta. SHE IS CURRENTLY RECEIVING 1/2NS AT 20 ML/HR, LEVAQUIN 500MG IV DAILY, FORTAZ 1G IV Q8H, HEPARIN IV DRIP, ALBUTEROL NEBS TID, PULMICORT NEBS BID, BROVANA INHALER BID, CARDIZEM CD 120MG PO DAILY, ASCORBIC ACID 1G PO QID, ZINC 220MG PO BID, RO BITUSSIN DM QID, VSL 2 CAPS DAILY, FLEXERIL 5MG PO BID, THE POTASSIUM AND MAGNESIUM PROTOCOL, PEPCID 20MG PO BID, PROTONIX MG 40MG PO BID, DIFLUCAN 100MG PO DAILY. TODAY, WE WILL DISCONTINUE THE HEPARIN DRIP AND START ELIQUIS 5MG PO BID. WE WILL ADMINISTER LASIX 40MG IV X 1 DOSE. OTHERWISE, WE PLAN TO FOLLOW UP WITH AM LABS AND CONTINUE TO MONITOR. TIME SPENT ON CLINICAL ASSESSMENT, REVIEWING LABS AND IMAGING, DECISION MAKING, AND DOCUMENTATION GREATER THAN 45 MINUTES. - Past Medical Family Social History Past Med/Fam/Surg Hx: No changes since H&P Allergies: Allergies No Known Drug Allergies Allergy (Verified 12/06/18 19:18) - Review of Systems ROS: No change since H&P - Vital Signs and I&O's Vital Signs: Temperature 98.5 F Pulse Rate 84 Respiratory Rate 22 Blood Pressure [Left Arm] 132/68 Blood Pressure 107/56 O2 Sat by Pulse Oximetry 95 Intake and Output: Intake & Output 11/20/21 11/21/21 11/22/21 11/23/21 10:59 11:59 11:59 11:59 Intake Total 2676 / 2676 3100 / 3100 Balance 2676 / 2676 3100 / 3100 - Physical Exam Oriented: Normal, Time, Person, Place Eyes: Normal Ear: Normal Nose: Normal Throat: Normal Respiratory: Generalized, Diminished Cardiovascular: Normal : Normal Auscultation: Bowel Sounds: Normal Palpation: Normal Tenderness: Normal Skin: Normal Musculoskeletal: Normal Psychiatric: Normal Mood Description: Calm Affect: Normal Speech Pattern: Clear, Appropriate - Laboratory and Diagnostics Result Diagrams: 11/23/21 04:35 11/23/21 04:35 Labs: 11/17/21 15:06 Blood Blood Culture - Final 11/17/21 15:00 Blood Blood Culture - Final 11/17/21 14:29 Urine,Catheterized Urine Culture - Final Laboratory WBC 6.2 X10^3/uL (3.6-10.0) 11/23/21 04:35 RBC 3.27 X10^6/uL (3.5-5.4) L 11/23/21 04:35 Hgb 9.7 g/dL (12.0-16.0) L 11/23/21 04:35 Hct 27.9 % (36.0-47.0) L 11/23/21 04:35 MCV 85.4 fL (80.0-100.0) 11/23/21 04:35 MCH 29.6 pg (27.0-34.0) 11/23/21 04:35 MCHC 34.7 g/dL (33.0-35.0) 11/23/21 04:35 RDW 14.7 % (11.6-16.5) 11/23/21 04:35 Plt Count 397 X10^3/uL (150.0-450.0) 11/23/21 04:35 MPV 7.9 fL (7.4-11.0) 11/23/21 04:35 Neut % (Auto) 56.1 % (42.0-75.0) 11/23/21 04:35 Lymph % (Auto) 26.1 % (21.0-51.0) 11/23/21 04:35 [place] % (Auto) 13.0 % (0.0-13.0) 11/23/21 04:35 Eos % (Auto) 4.2 % (0.9-2.9) H 11/23/21 04:35 Baso % (Auto) 0.6 % (0.2-1.0) 11/23/21 04:35 Neut # (Auto) 3.5 x10^3/uL (2.2-4.8) 11/23/21 04:35 Lymph # (Auto) 1.6 X10^3/uL (1.3-2.9) 11/23/21 04:35 [place] # (Auto) 0.8 x10^3/uL (0.3-0.8) 11/23/21 04:35 Eos # (Auto) 0.3 x10^3/uL (0.0-0.2) H 11/23/21 04:35 Baso # (Auto) 0.0 X10^3/uL (0.0-0.1) 11/23/21 04:35 Absolute Nucleated RBC 0.0 /100WBC 11/23/21 04:35 PT 16.3 SECONDS (11.8-14.3) 11/18/21 12:06 INR Target Range - 11/18/21 12:06 INR 1.38 (0.8-1.3) H 11/18/21 12:06 APTT 91.1 SECONDS (22.9-36.5) H 11/23/21 04:35 PTT Comment - 11/23/21 04:35 D-Dimer 3.70 ug/ml (0.0-0.57) H* 11/18/21 04:20 Sample Site Rr 11/18/21 05:00 ABG pH 7.480 (7.35-7.45) H 11/18/21 05:00 ABG pCO2 37.0 mmHg (35.0-45.0) 11/18/21 05:00 ABG pO2 53.0 mmHg (80.0-100.0) L 11/18/21 05:00 ABG HCO3 27.6 mmol/L (22-26) H 11/18/21 05:00 ABG O2 Saturation 90.0 % (90-100) 11/18/21 05:00 ABG Base Excess 4.0 mmol/L (-2.0-2.0) H 11/18/21 05:00 Clint Test Pos 11/18/21 05:00 A-a Gradient 100.0 mmHg 11/18/21 05:00 FiO2 28.0 11/18/21 05:00 Blood Gas Comments Doc well ms 11/18/21 05:00 Sodium 139 mmol/L (136-145) 11/23/21 04:35 Corrected Sodium 139 mmol/L (136-145) 11/23/21 04:35 Potassium 3.6 mmol/L (3.5-5.1) 11/23/21 04:35 Chloride 105 mmol/L (98-107) 11/23/21 04:35 Carbon Dioxide 21.2 mmol/L (21-32) 11/23/21 04:35 BUN 3 mg/dL (7-18) L 11/23/21 04:35 Creatinine 0.88 mg/dL (0.55-1.02) 11/23/21 04:35 Est GFR (MDRD) Af Amer > 60 (>60) 11/23/21 04:35 Est GFR (MDRD) Non-Af > 60 (>60) 11/23/21 04:35 Glucose 112 mg/dL (65-99) H 11/23/21 04:35 Calcium 8.2 mg/dL (8.5-10.1) L 11/23/21 04:35 Corrected Calcium 9.0 mg/dL (8.5-10.1) 11/23/21 04:35 Magnesium 2.2 mg/dL (1.7-2.9) 11/23/21 04:35 Total Bilirubin 0.40 mg/dL (0.2-1.0) 11/23/21 04:35 AST 50 Units/L (15-37) H 11/23/21 04:35 ALT 39 Units/L (12-78) 11/23/21 04:35 Alkaline Phosphatase 89 Units/L (46-116) 11/23/21 04:35 Creatine Kinase 90 Units/L (26-192) 11/17/21 15:00 CK-MB (CK-2) 0.6 ng/mL (0-4.0) 11/17/21 15:00 CK/CKMB % Calc 0.7 % (<4) 11/17/21 15:00 Troponin I High Sens 16.3 ng/L (4.0-60.0) 11/17/21 15:00 C-Reactive Protein 42.20 mg/L (0-3.0) H 11/22/21 03:15 B-Natriuretic Peptide 168 pg/mL (0-79) H 11/22/21 03:15 Total Protein 6.4 g/dL (6.4-8.2) 11/23/21 04:35 Albumin 3.0 g/dL (3.4-5.0) L 11/23/21 04:35 Globulin 3.4 g/dL (2.5-4.5) 11/23/21 04:35 Albumin/Globulin Ratio 0.9 Ratio (1.1-2.1) L 11/23/21 04:35 Specimen Type Catherized urine 11/17/21 14:29 Urine Color Yellow (YELLOW) 11/17/21 14: Urine Appearance Clear (CLEAR) 11/17/21 14: Urine pH 7.0 (5.0 - 8.0) 11/17/21 14: Ur Specific [place] 1.010 (1.000-1.030) 11/17/21 14: Urine Protein 2+ (NEGATIVE) 11/17/21 14: Urine Glucose (UA) 1+ (NEGATIVE) 11/17/21 14: Urine Ketones 2+ (NEGATIVE) 11/17/21 14: Urine Occult Blood 1+ (NEGATIVE) 11/17/21 14:29 Urine Nitrite Negative (NEGATIVE) 11/17/21 14:29 Urine Bilirubin Negative (NEGATIVE) 11/17/21 14:29 Urine Urobilinogen 1+ (NORMAL) 11/17/21 14:29 Ur Leukocyte Esterase 2+ (NEGATIVE) 11/17/21 14:29 Urine RBC 3-5 /HPF (0-3) A 11/17/21 14:29 Urine WBC 20-30 /HPF (0-5) A 11/17/21 14:29 Ur Squamous Epith Cells Few /HPF (NEGATIVE) 11/17/21 14:29 Amorphous Sediment Trace /HPF (NEGATIVE) 11/17/21 14:29 Urine Bacteria 1+ /HPF (NEGATIVE) 11/17/21 14:29 Hyaline Casts Rare /LPF (NEGATIVE) 11/17/21 14:29 Urine Mucus Few /HPF (NEGATIVE) 11/17/21 14:29 Ur Culture Indicated? Yes/culture set up 11/17/21 14:29 Influenza Type A Ag Negative-presumptive (NEGATIVE) 11/17/21 15:22 Influenza Type B Ag Negative-presumptive (NEGATIVE) 11/17/21 15:22 SARS CoV-2 RNA Rapid [place] Positive (NEGATIVE) A 11/17/21 16:44 SARS-CoV-2 IgG Ab Positive (Negative) H 11/18/21 04:20 SARS-CoV-2 IgG (WHIT) 1 1.50 IV (<=0.99) H 11/18/21 04:20 S. pyogenes (TEM-PCR) Not detected (NOT DETECT) 11/17/21 15:22 - Plan (1) Pneumonia Status: Acute Qualifiers: Pneumonia type: due to unspecified organism Laterality: right Lung location: lower lobe of lung Qualified Code(s): J18.9 - Pneumonia, unspecified organism Plan: SUPPLEMENTAL OXYGEN, 1/2NS AT 75 ML/HR, ELIQUIS 5MG PO BID, LEVAQUIN 500MG IV DAILY, FORTAZ 1G IV Q8H, ALBUTEROL NEBS TID, PULMICORT NEBS BID, BROVANA INHALER BID, CARDIZEM CD 120MG PO DAILY, ASCORBIC ACID 1G PO QID, ZINC 220MG PO BID, ROBITUSSIN DM QID, VSL 2 CAPS DAILY, FLEXERIL 5MG PO BID, THE POTASSIUM AND MAGNESIUM PROTOCOL, PEPCID 20MG PO BID, PROTONIX MG 40MG PO BID, DIFLUCAN 100MG PO DAILY, RESUME HOME MEDS (2) Pulmonary embolism Status: Acute Qualifiers: Pulmonary embolism type: unspecified Chronicity: acute Acute cor pulmonale presence: without acute cor pulmonale Qualified Code(s): I26.99 - Other pulmonary embolism without acute cor pulmonale (3) Acute UTI Status: Acute (4) Pleural effusion Status: Acute (5) Fever Status: Acute Qualifiers: Fever type: unspecified Qualified Code(s): R50.9 - Fever, unspecified (6) COVID Status: Acute (7) Weakness Status: Acute (8) AMS (altered mental status) Status: Acute Qualifiers: Altered mental status type: transient alteration of awareness Qualified Code(s): R40.4 - Transient alteration of awareness
[2021-11-23] MEDS: ELIQUIS PO SCH ×2 (11:20→20:33)
[2021-11-23] MEDS: ALBUMIN HUMAN 25%- 100 ML 100 ML IV SCH (11:21)
[2021-11-23] MEDS: SEROquel TAB 25 mg PO SCH (20:34)
[2021-11-24] MEDS: ACCUNEB 1.25 MG NEBULE NEB SCH (05:19)
[2021-11-24 05:23] LABS: BASOPHILS % (AUTO) 0.5 % (0.2-1.0); EOSINOPHILS # (AUTO) 0.1 x10^3/uL (0.0-0.2); EOSINOPHILS % (AUTO) 2.4 % (0.9-2.9); HEMATOCRIT 25.8 % (36.0-47.0); HEMOGLOBIN 8.9 g/dL (12.0-16.0); LYMPHOCYTES # (AUTO) 0.9 X10^3/uL (1.3-2.9); LYMPHOCYTES % (AUTO) 18.9 % (21.0-51.0); MEAN CORPUSCULAR HEMOGLOBIN 29.5 pg (27.0-34.0); MEAN CORPUSCULAR HGB CONC 34.6 g/dL (33.0-35.0); MEAN CORPUSCULAR VOLUME 85.4 fL (80.0-100.0); MEAN PLATELET VOLUME 7.8 fL (7.4-11.0); MONOCYTES # (AUTO) 0.9 x10^3/uL (0.3-0.8); MONOCYTES % (AUTO) 17.2 % (0.0-13.0); RED BLOOD COUNT 3.03 X10^6/uL (3.5-5.4); RED CELL DISTRIBUTION WIDTH 14.5 % (11.6-16.5)
[2021-11-24] MEDS: NS 1/2 1,000 ML IV 1,000 ML IV SCH (05:28)
[2021-11-24] MEDS: TYLENOL 325 MG TAB PO PRN (05:29)
[2021-11-24] MEDS: FORTAZ or TAZICEF VIAL INJ 1 G in NS 100 ML IV 100 ML IV SCH (05:29)
[2021-11-24 05:32] LABS: ALANINE AMINOTRANSFERASE 30 Units/L (12-78); ALBUMIN 3.3 g/dL (3.4-5.0); ALKALINE PHOSPHATASE 85 Units/L (46-116); ASPARTATE AMINO TRANSFERASE 35 Units/L (15-37); BLOOD UREA NITROGEN 3 mg/dL (7-18); CALCIUM 8.1 mg/dL (8.5-10.1); CARBON DIOXIDE 21.9 mmol/L (21-32); CHLORIDE 104 mmol/L (98-107); COR CA(FOR HYPOALB) 8.7 mg/dL (8.5-10.1); CREATININE 0.94 mg/dL (0.55-1.02); SODIUM 138 mmol/L (136-145); TOTAL PROTEIN 6.5 g/dL (6.4-8.2); eGFR NON BLACK RACES > 60 (>60)
--- NOTE | 2021-11-24 06:02 | RAD ---
HISTORYSOB HTN, ORTHO, HYSTSTUDYCHEST, 1 [id number]/2022FINDINGSThe trachea is midline. The cardiac silhouette is unremarkable. Right basilar airspace disease unchanged. No pneumothorax.. The bony thorax is unremarkable.IMPRESSIONStable portable chest.Electronically signed by: Jose Hicks (Nov 24, 2021 06:01:41)
[2021-11-24] MEDS: ALBUMIN HUMAN 25%- 100 ML 100 ML IV SCH (08:44)
[2021-11-24] MEDS: DIFLUCAN PO SCH (08:45)
[2021-11-24] MEDS: CARDIZEM CD 120 MG 24-HR PO SCH (08:45)
[2021-11-24] MEDS: PEPCID TAB 20 MG PO SCH (08:46)
[2021-11-24] MEDS: ELIQUIS PO SCH (08:46)
[2021-11-24] MEDS: EXELON PO SCH (08:46)
[2021-11-24] MEDS: LEVAQUIN PREMIX IV 500 MG 500 MG/100 ML BAG IV SCH (08:46)
[2021-11-24] MEDS: ROBITUSSIN DM PO SCH (08:47)
[2021-11-24] MEDS: ZINC SULFATE PO SCH (08:47)
[2021-11-24] MEDS: VSL#3 PO SCH (08:47)
[2021-11-24] MEDS: PROTONIX TAB 40 MG PO SCH (08:47)
[2021-11-24] MEDS: VITAMIN C PO SCH (08:49)
[2021-11-24] MEDS: BROVANA IN SCH (09:16)
[2021-11-24] MEDS: PULMICORT NEB TX 0.5 MG NEB SCH (09:16)
[2021-11-24 10:03] VITALS: BP 117/58
== END 2021-11-24 11:00 | disposition home health service (06) | DRG 177 ==
LOC: ICU 14:12 → ER 14:12 → ICU 18:41
PROVIDERS: ADMIT Internal Medicine; ATTEND Internal Medicine
DX: J90 Pleural effusion, not elsewhere classified; I10 Essential (primary) hypertension; I26.99 Other pulmonary embolism without acute cor pulmonale; E87.6 Hypokalemia; R41.82 Altered mental status, unspecified; R06.02 Shortness of breath; J12.81 Pneumonia due to SARS-associated coronavirus; R53.1 Weakness; R26.2 Difficulty in walking, not elsewhere classified; D68.9 Coagulation defect, unspecified; M19.90 Unspecified osteoarthritis, unspecified site; U07.1 COVID-19; N39.0 Urinary tract infection, site not specified

== ENCOUNTER 2023-02-10 10:18 | Observation (INO) ==
--- NOTE | 2023-02-10 10:46 | DR.DIZZY ---
HPI Time seen Time Seen by Provider: 02/10/23 10:45 Complaint Chief Complaint Doctor Comments: LETHARGY,DECREASED ORAL INTAKE AND LOSS OF BALANCE. FOR ONE WEEK. HAS DEMENTIA. HAD UA 2 DAYS AGO AT PCP THAT WAS NORMAL. Context Stroke Symptoms: Dizziness PMH PMH Past Medical History: Arthritis and Hypertension Past Surgical History: Yes Surgical History: Ortho Surgery Family History Family Medical History: Diabetes Mellitus and Hypertension Social History Do you use any recreational Drugs:: No ROS Review of Systems Constitutional: Fatigue and Other (DECREASED ORAL INTAKE) Eyes: No Symptoms Reported ENTM: No Symptoms Reported Respiratoy: No Symptoms Reported Cardiovascular: No Symptoms Reported Gastrointestinal/Abdominal: No Symptoms Reported Genitourinary: No Symptoms Reported Neurological: No Symptoms Reported Musculoskeletal: No Symptoms Reported Integumentary: No Symptoms Reported Hematologic/Lymphatic: No Symptoms Reported Endocrine: No Symptoms Reported Psychiatric: No Symptoms Reported PE Vital Signs Vitals: Temperature 101.2 F Temperature 98.3 F Pulse Rate 126 Pulse Rate 107 Respiratory Rate 39 Respiratory Rate 15 Blood Pressure [Left Arm] 132/68 Blood Pressure 133/77 Blood Pressure 117/58 O2 Sat by Pulse Oximetry 90 O2 Sat by Pulse Oximetry 94 General Limitations: Physical Limitation (UNABLE TO AMBULATE DUE TO WEAKNESS) General Appearance: In No Apparent Distress Head Head Exam: Normal Inspection, Atraumatic and Normocephalic Eyes Eye exam: Normal Appearance, PERRL and EOMI Pupils: Regular, Round: Bilateral Sclera/Conjunctival: Normal Inspection: Bilateral ENT ENT Exam: Normal Exam, Normal Oropharynx and Normal External Ear Exam Neck Neck Exam: Normal Inspection, Full ROM and Trachea Midline Chest Chest Inspection: Normal Inspection and Symmetric Chest Wall Rise Respiratory Respiratory Exam: Normal Lung Sounds Bilat Respiratory Exam: Bilateral: Clear to Auscultation Cardiovascular Cardiovascular Exam: Regular Rate Abdominal Exam Abdominal Exam: Normal Inspection, Normal Bowel Sounds and Soft Rectal Rectal Exam: Deferred Extremeties Extremities Exam: Normal Inspection Back Back Exam: Normal Inspection Neurologic Neurological Exam: Alert Speech: Fluid Speech Motor Strength - LUE: 3/5 Motor Strength - RUE: 3/5 Motor Strength - LLE: 3/5 Motor Strength - RLE: 3/5 Psychiatric Psychiatric Exam: Normal Affect Skin Skin Exam: Warm MDM Differential Diagnosis Differential Diagnosis: Anemia, Dehydration, Electrolyte disorder and Other (UTI) COURSE Treatment Treatment: PATIENT WAS FOUND TO HAVE ELEVATED D-DIMER OF 5.52 . HAD PULMONARY EMBOLUS 2 YEARS AGO AND WAS TRATED ON ELEQUIS FOR OVER A YEAR. STOPPED ELEQUIS AND WAS PLACED ON ASA 325MG ORALLY DAILY. ALSO HAD AFIB LAST YEAR. WAS GOING TO DO CTA OF CHEST TO FURTHER EVALUATE FOR PE BUT GFR WAS LOW. 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 THE PATIENT'S FAMILY WAS TOLD OF THE INTENT AND WAS AGREABLE TO THE ADMISSION. THE PATIENT WAS FOUND TO HAVE A POTASSIUM OF 3.2 AND WAS PLACED ON NACL WITH 20K AT 125ML/H AND WAS GIVEN 1 GRAM OF ROCEPHINE IV IN ER FOR UTI. ROR Labs Reviewed Laboratory Results Reviewed?: Yes Result Diagrams: 02/10/23 10:58 02/11/23 00:10 Laboratory: WBC 14.8 X10^3/uL (3.6-10.0) H 02/10/23 10:58 RBC 4.13 X10^6/uL (3.5-5.4) 02/10/23 10:58 Hgb 12.2 g/dL (12.0-16.0) 02/10/23 10:58 Hct 36.2 % (36.0-47.0) 02/10/23 10:58 MCV 87.7 fL (80.0-100.0) 02/10/23 10:58 MCH 29.6 pg (27.0-34.0) 02/10/23 10:58 MCHC 33.7 g/dL (33.0-35.0) 02/10/23 10:58 RDW 13.3 % (11.6-16.5) 02/10/23 10:58 Plt Count 224 X10^3/uL (150.0-450.0) 02/10/23 10:58 MPV 9.2 fL (7.4-11.0) 02/10/23 10:58 Neut % (Auto) 87.8 % (42.0-75.0) H 02/10/23 10:58 Lymph % (Auto) 5.0 % (21.0-51.0) L 02/10/23 10:58 [place] % (Auto) 5.8 % (0.0-13.0) 02/10/23 10:58 Eos % (Auto) 0.9 % (0.9-2.9) 02/10/23 10:58 Baso % (Auto) 0.5 % (0.2-1.0) 02/10/23 10:58 Neut # (Auto) 13.0 x10^3/uL (2.2-4.8) H 02/10/23 10:58 Lymph # (Auto) 0.7 X10^3/uL (1.3-2.9) L 02/10/23 10:58 [place] # (Auto) 0.9 x10^3/uL (0.3-0.8) H 02/10/23 10:58 Eos # (Auto) 0.1 x10^3/uL (0.0-0.2) 02/10/23 10:58 Baso # (Auto) 0.1 X10^3/uL (0.0-0.1) 02/10/23 10:58 Absolute Nucleated RBC 0.0 /100WBC 02/10/23 10:58 PT 15.2 SECONDS (11.8-14.3) 02/10/23 10:58 INR Target Range - 02/10/23 10:58 INR 1.22 (0.8-1.3) 02/10/23 10:58 APTT 31.3 SECONDS (22.9-36.5) 02/10/23 10:58 PTT Comment - 02/10/23 10:58 D-Dimer 5.52 ug/ml (0.0-0.57) H 02/10/23 10:58 Sodium 134 mmol/L (136-145) L 02/10/23 10:58 Corrected Sodium 135 mmol/L (136-145) L 02/10/23 10:58 Potassium 3.2 mmol/L (3.5-5.1) L 02/10/23 10:58 Chloride 97 mmol/L (98-107) L 02/10/23 10:58 Carbon Dioxide 26.2 mmol/L (21-32) 02/10/23 10:58 BUN 29 mg/dL (7-18) H 02/10/23 10:58 Creatinine 1.48 mg/dL (0.55-1.02) H 02/10/23 10:58 Est GFR (MDRD) Af Amer 43 (>60) L 02/10/23 10:58 Est GFR (MDRD) Non-Af 36 (>60) L 02/10/23 10:58 Glucose 146 mg/dL (65-99) H 02/10/23 10:58 Calcium 8.1 mg/dL (8.5-10.1) L 02/10/23 10:58 Corrected Calcium 9.2 mg/dL (8.5-10.1) 02/10/23 10:58 Total Bilirubin 0.70 mg/dL (0.2-1.0) 02/10/23 10:58 AST 91 Units/L (15-37) H 02/10/23 10:58 ALT 67 Units/L (12-78) 02/10/23 10:58 Alkaline Phosphatase 75 Units/L (46-116) 02/10/23 10:58 Creatine Kinase 731 Units/L (26-192) H 02/10/23 10:58 Troponin I High Sens 40.9 ng/L (4.0-60.0) 02/10/23 10:58 B-Natriuretic Peptide 613 pg/mL (0-79) H* 02/10/23 10:58 Total Protein 6.8 g/dL (6.4-8.2) 02/10/23 10:58 Albumin 2.6 g/dL (3.4-5.0) L 02/10/23 10:58 Globulin 4.2 g/dL (2.5-4.5) 02/10/23 10:58 Albumin/Globulin Ratio 0.6 Ratio (1.1-2.1) L 02/10/23 10:58 Specimen Type Catherized urine 02/10/23 15:21 Urine Color Yellow (YELLOW) 02/10/23 15:21 Urine Appearance Hazy (CLEAR) 02/10/23 15:21 Urine pH 6.0 (5.0 - 8.0) 02/10/23 15:21 Ur Specific [place] 1.015 (1.000-1.030) 02/10/23 15:21 Urine Protein 3+ (NEGATIVE) 02/10/23 15:21 Urine Glucose (UA) Negative (NEGATIVE) 02/10/23 15:21 Urine Ketones Negative (NEGATIVE) 02/10/23 15:21 Urine Blood 5+ (NEGATIVE) 02/10/23 15:21 Urine Nitrite Positive (NEGATIVE) 02/10/23 15:21 Urine Bilirubin Negative (NEGATIVE) 02/10/23 15:21 Urine Urobilinogen Normal (NORMAL) 02/10/23 15:21 Ur Leukocyte Esterase 3+ (NEGATIVE) 02/10/23 15:21 Urine RBC 0-2 /HPF (0-3) 02/10/23 15:21 Urine WBC Tntc /HPF (0-5) A 02/10/23 15:21 Ur Squamous Epith Cells Rare /HPF (NEGATIVE) 02/10/23 15:21 Urine Bacteria 1+ /HPF (NEGATIVE) 02/10/23 15:21 Ur Culture Indicated? Yes/culture set up 02/10/23 15:21 SARS-CoV-2 (PCR) Negative (NEGATIVE) 02/10/23 13:25 Influenza Type A (PCR) Negative (NEGATIVE) 02/10/23 13:25 Influenza Type B (PCR) Negative (NEGATIVE) 02/10/23 13:25 RSV (PCR) Negative (NEGATIVE) 02/10/23 13:25 Opioid Opioid Risk Tool Age (Marcio box if 16-45): No History of Preadolescent Sexual Abuse: No Total: 0 Total Score Risk Category: Low Risk Copyright: Neymar SANCHEZ predicting aberrant behaviors Discharge Plan Diagnosis Discharge Problem: D-dimer, elevated, UTI (urinary tract infection), Dementia, Hypokalemia Discharge Plan Patient Disposition: ADMITTED INPATIENT Condition: Stable
[2023-02-10 11:11] LABS: BASOPHILS # (AUTO) 0.1 X10^3/uL (0.0-0.1); HEMOGLOBIN 12.2 g/dL (12.0-16.0); MONOCYTES # (AUTO) 0.9 x10^3/uL (0.3-0.8); RED CELL DISTRIBUTION WIDTH 13.3 % (11.6-16.5)
--- NOTE | 2023-02-10 11:11 | EKG ---
Test Reason : DIZZINESS, WEAKNESS, AFTB Blood Pressure : */* mmHG Vent. Rate : 120 BPM Atrial Rate : * BPM P-R Int : * ms QRS Dur : 130 ms QT Int : 372 ms P-R-T Axes : * -33 138 degrees QTc Int : 525 ms Atrial fibrillation with a LBBB Left axis deviation Nonspecific intraventricular block Minimal voltage criteria for LVH, may be normal variant ( Sun product ) Cannot rule out Anteroseptal infarct , age undetermined T wave abnormality, consider lateral ischemia Abnormal ECG No previous ECGs available Confirmed by Yehuda Wan ([id number]) on 02/10/2023 4:36:29 PM Referred By: Confirmed By: Yehuda Wan
[2023-02-10 11:15] LABS: BASOPHILS % (AUTO) 0.5 % (0.2-1.0); EOSINOPHILS # (AUTO) 0.1 x10^3/uL (0.0-0.2); EOSINOPHILS % (AUTO) 0.9 % (0.9-2.9); HEMATOCRIT 36.2 % (36.0-47.0); INR 1.22 (0.8-1.3); LYMPHOCYTES # (AUTO) 0.7 X10^3/uL (1.3-2.9); MEAN CORPUSCULAR HEMOGLOBIN 29.6 pg (27.0-34.0); MEAN CORPUSCULAR HGB CONC 33.7 g/dL (33.0-35.0); MEAN CORPUSCULAR VOLUME 87.7 fL (80.0-100.0); MEAN PLATELET VOLUME 9.2 fL (7.4-11.0); MONOCYTES % (AUTO) 5.8 % (0.0-13.0); NEUTROPHILS % (AUTO) 87.8 % (42.0-75.0); PLATELET COUNT 224 X10^3/uL (150.0-450.0); RED BLOOD COUNT 4.13 X10^6/uL (3.5-5.4); WHITE BLOOD COUNT 14.8 X10^3/uL (3.6-10.0)
[2023-02-10 11:26] LABS: ALBUMIN 2.6 g/dL (3.4-5.0); CALCIUM 8.1 mg/dL (8.5-10.1); CARBON DIOXIDE 26.2 mmol/L (21-32); COR CA(FOR HYPOALB) 9.2 mg/dL (8.5-10.1); CREATININE 1.48 mg/dL (0.55-1.02); POTASSIUM 3.2 mmol/L (3.5-5.1); TOTAL PROTEIN 6.8 g/dL (6.4-8.2)
--- NOTE | 2023-02-10 11:34 | RAD ---
HISTORYDizzinessSTUDYCHEST, 1 [id number]/2022FINDINGSThe trachea is midline. The cardiac silhouette is enlarged with a tortuous thoracic aorta . The lungs are clear without focal infiltrate or effusion. The bony thorax is unremarkable.IMPRESSIONNo acute cardiopulmonary disease.Electronically signed by: TAYLER POPE (Feb 10, 2023 11:32:35)
[2023-02-10] MEDS ORDERED: LOVENOX INJ 80 MG SYR SC ONE (15:00)
[2023-02-10 15:33] LABS: BILIRUBIN,URINE NEGATIVE (NEGATIVE); BLOOD/HEMOGLOBIN,URINE 5+ (NEGATIVE); GLUCOSE, URINE NEGATIVE (NEGATIVE); KETONES,URINE NEGATIVE (NEGATIVE); LEUKOCYTE ESTERASE ,URINE 3+ (NEGATIVE); NITRITES,URINE POSITIVE (NEGATIVE); PROTEIN,URINE 3+ (NEGATIVE); UROBILINOGEN,URINE NORMAL (NORMAL)
[2023-02-10 15:35] LABS: APPEARANCE,URINE HAZY (CLEAR); COLOR,URINE YELLOW (YELLOW)
[2023-02-10] MEDS ORDERED: NS + KCL 20 MEQ/L 1,000 ML IV ONE (15:39)
[2023-02-10 15:43] LABS: BACTERIA,URINE 1+ /HPF (NEGATIVE); RBC,URINE 0-2 /HPF (0-3); SQUAMOUS EPITHELIAL CELL,UR RARE /HPF (NEGATIVE)
[2023-02-10] MEDS ORDERED: OFIRMEV IV 1000 MG VIAL 1,000 MG/100 ML VIAL IV ONE ×2 (15:45→15:47)
[2023-02-10] MEDS ORDERED: ROCEPHIN VIAL 1 GRAM IV ONE (15:47)
[2023-02-10] MEDS: NS + KCL 20 MEQ/L 1,000 ML IV SCH ×2 (15:53→16:58)
[2023-02-10] MEDS ORDERED: NS 100 ML IV 100 ML ONE (15:55)
[2023-02-10] MEDS ORDERED: ROCEPHIN VIAL 1 GRAM ONE (15:55)
[2023-02-10 16:44] LABS: ALBUMIN 2.7 g/dL (3.4-5.0); CALCIUM 8.1 mg/dL (8.5-10.1); CARBON DIOXIDE 28.1 mmol/L (21-32); COR CA(FOR HYPOALB) 9.1 mg/dL (8.5-10.1); CREATININE 1.41 mg/dL (0.55-1.02); POTASSIUM 3.2 mmol/L (3.5-5.1)
[2023-02-10 16:46] LABS: LACTIC ACID 1.4 mmol/L (0.4-2.0)
[2023-02-10 17:11] VITALS: BMI 24.0
[2023-02-10] MEDS ORDERED: K-DUR TAB 20 MEQ PO PRN (19:01)
[2023-02-10] MEDS ORDERED: MAGNESIUM SULFATE 1 GRAM/100 mL PREMIX 1 G/100 ML BAG IV PRN (19:01)
[2023-02-10] MEDS ORDERED: KLOR-CON PO PRN (19:01)
[2023-02-10] MEDS ORDERED: POTASSIUM CHL 60 MEQ/NS 0.45% 500 ML IV PRN (19:01)
[2023-02-10] MEDS ORDERED: K-RIDER 10 MEQ/NS 100 ML 10 MEQ/100 ML BAG IV PRN (19:01)
[2023-02-10] MEDS ORDERED: MICRO K EXTEN CAP 10 MEQ PO PRN (19:01)
[2023-02-10] MEDS ORDERED: POTASSIUM CHLORIDE LIQ 20 MEQ UDC PO PRN (19:01)
[2023-02-10] MEDS ORDERED: POTASSIUM CHL 40 MEQ/NS 0.45% 500 ML IV PRN (19:01)
[2023-02-10] MEDS: SEROquel TAB 25 mg PO SCH (20:27)
[2023-02-11] MEDS: NS + KCL 20 MEQ/L 1,000 ML IV SCH ×5 (00:02→20:09)
--- NOTE | 2023-02-11 00:02 | EKG ---
Test Reason : hr Blood Pressure : */* mmHG Vent. Rate : 152 BPM Atrial Rate : * BPM P-R Int : * ms QRS Dur : 114 ms QT Int : 318 ms P-R-T Axes : * -18 136 degrees QTc Int : 505 ms Atrial fibrillation with rapid ventricular response Minimal voltage criteria for LVH, may be normal variant ( [place] product ) Anteroseptal infarct (cited on or before 10-FEB-2023) Abnormal ECG Left bundle branch block When compared with ECG of 10-FEB-2023 11:06, QRS duration has decreased Confirmed by Yehuda Wan ([id number]) on 02/11/2023 8:39:05 AM Referred By: Confirmed By: Yehuda Wan
[2023-02-11] MEDS ORDERED: TYLENOL 325 MG TAB PO ONE (00:18)
[2023-02-11] MEDS: TYLENOL 325 MG TAB PO PRN ×2 (00:36→09:00)
[2023-02-11 05:41] LABS: BASOPHILS % (AUTO) 0.4 % (0.2-1.0); EOSINOPHILS % (AUTO) 0.1 % (0.9-2.9); HEMATOCRIT 32.1 % (36.0-47.0); HEMOGLOBIN 11.2 g/dL (12.0-16.0); LYMPHOCYTES # (AUTO) 0.7 X10^3/uL (1.3-2.9); LYMPHOCYTES % (AUTO) 6.5 % (21.0-51.0); MEAN CORPUSCULAR HEMOGLOBIN 30.6 pg (27.0-34.0); MEAN CORPUSCULAR VOLUME 87.4 fL (80.0-100.0); MEAN PLATELET VOLUME 9.8 fL (7.4-11.0); MONOCYTES # (AUTO) 0.8 x10^3/uL (0.3-0.8); MONOCYTES % (AUTO) 7.3 % (0.0-13.0); NEUTROPHILS # (AUTO) 9.2 x10^3/uL (2.2-4.8); NEUTROPHILS % (AUTO) 85.7 % (42.0-75.0); PLATELET COUNT 215 X10^3/uL (150.0-450.0); RED BLOOD COUNT 3.67 X10^6/uL (3.5-5.4); RED CELL DISTRIBUTION WIDTH 13.3 % (11.6-16.5); WHITE BLOOD COUNT 10.7 X10^3/uL (3.6-10.0)
[2023-02-11 05:53] LABS: ALBUMIN 2.2 g/dL (3.4-5.0); CALCIUM 7.5 mg/dL (8.5-10.1); CARBON DIOXIDE 26.1 mmol/L (21-32); COR CA(FOR HYPOALB) 8.9 mg/dL (8.5-10.1); CREATININE 1.37 mg/dL (0.55-1.02); POTASSIUM 3.3 mmol/L (3.5-5.1)
[2023-02-11] MEDS: XARELTO PO SCH (09:00)
[2023-02-11] MEDS: EXELON PATCH TD SCH (09:02)
[2023-02-11] MEDS: TOPROL XL PO SCH (10:55)
--- NOTE | 2023-02-11 13:03 | DR.H&P ---
H&P - History & Physical for Day of: H&P Date: 02/10/23 - Chief Complaint Chief Complaint: WEAKNESS, DECREASED ORAL INTAKE, DIZZINESS, UNSTEADY GAIT - History of Present Illness History of Present Illness: IS A 82 YEAR OLD PATIENT OF OURS. SHE PRESENTED TO THE ER VIA PERSONAL VEHICLE WITH HER FAMILY AT SIDE. HER FAMILY REPORTS THAT PATIENT HAS BEEN LETHARGIC AND HAS HAD DECREASED ORAL INTAKE, DIZZINESS, AND UNSTEADY GAIT. HER DAUGHTER REPORTS THAT SHE HAS BEEN UNABLE TO AMBULATE SINCE YESTERDAY DUE TO SEVERE WEAKNESS. HER SYMPTOMS STARTED ABOUT A WEEK AGO. SHE WAS SEEN IN OUR OFFICE TWO DAYS PRIOR AND HAD A NEGATIVE EXAMINATION AND HER URINALYSIS WAS NEGATIVE AT THAT TIME. HER PMH INCLUDES: HTN, ARTHRITIS, DEMENTIA. SHE HAS HAD A PULMONARY EMBOLISM IN NOVEMBER OF 2021, BUT IS NO LONGER ON ANY BLOOD THINNERS. ON ARRIVAL TO THE ER, HER VITALS WERE: 98.3-107-15-94%-111/70. LABS WERE OBTAINED. WBC 14.8, RBC 4.13, HGB 12.2, HCT 36.2, PLT COUNT 224, D-DIMER 5.52, PT 15.2, INR 1.22, SODIUM 134, POTASSIUM 3.2, CHLORIDE 97, CARBON DIOXIDE 26.2, BUN 29, CREATININE 1.48, GLUCOSE 146, CALCIUM 8.1, AST 91, ALT 67, ALK PHOS 75, CREATINE KINASE 731, BNP 613, TOTAL PROTEIN 6.8, ALBUMIN 2.6, MAGNESIUM 2.1. A URINALYSIS WAS OBTAINED AND REVEALED: WBC TNTC, RBC 0-2, LEUKOCYTES 3+, BACTERIA 1+, NITRITES POSITIVE. URINE CULTURE WAS SET UP. COLONY COUNT IS >100,000. COVID, INFLUENZA, AND RSV NEGATIVE. A CHEST XRAY WAS OBTAINED AND REVEALED: NO ACUTE CARDIOPULMONARY DISEASE. AN EKG WAS OBTAINED AND REVEALED: ATRIAL FIBRILLATION WITH A LBBB. HR 120 BPM. IN THE ER, SHE WAS GIVEN LOVENOX 70MG SC X 1 DOSE, ACETAMINOPHEN 1G IV X 1 DOSE, ROCEPHIN 1G IV X 1 DOSE. SHE WAS ADMITTED TO THE HOSPITAL FOR FURTHER EVALUATION AND TREATMENT OF UTI, ATRIAL FIBRILLATION, ELEVATED D-DIMER, HYPOKALEMIA, DEHYDRATION. SHE WAS STARTED ON NORMAL SALINE WITH 20MEQ KCL AT 125 ML/HR, INVANZ 1G IV DAILY, THE POTASSIUM AND MAGNESIUM PROTOCOLS, XARELTO 10MG PO DAILY, METOPROLOL XL 12.5MG DAILY, TYLENOL 650MG Q4H PRN. HER HOME MEDICATIONS OF SEROQUEL 25MG HS, XARELTO 10MG DAILY, ESCITALOPRAM, MELOXICAM, ASPIRIN, AND AN EXELON PATCH WERE RESUMED. OTHERWISE, WE PLAN TO FOLLOW-UP WITH AM LABS AND CONTINUE TO MONITOR. TIME SPENT ON CLINICAL ASSESSMENT, REVIWING LABS AND IMAGING, DECISION MAKING, AND DOCUMENTATION GREATER THAN 75 MINUTES. - Past Medical History Past Medical History: Arthritis, Dementia, Hypertension - Past Surgical History Surgical History: Hysterectomy, Other - Family History Family Medical History: Diabetes Mellitus, Hypertension - Social History Does patient currently use any type of tobacco product: No Have you used tobacco products in the last 12 months: No Type of Tobacco Use: None Does any household member use tobacco: No Alcohol Use: None - Medications Home Medications: Home Medications Medication Instructions Recorded Confirmed Type escitalopram oxalate 5 mg tablet 5 mg PO DAILY 11/23/21 02/10/23 History aspirin 325 mg tablet,delayed 325 mg PO QDAY 02/10/23 02/10/23 History release baclofen 5 mg tablet 5 mg PO BID 02/10/23 02/10/23 History meloxicam 7.5 mg tablet 7.5 mg PO QDAY 02/10/23 02/10/23 History rivastigmine 4.6 mg/24 hour 1 patch QDAY 02/10/23 02/10/23 History transdermal patch - Review of Systems Constitutional: Fever, Weakness Eyes: No Symptoms Reported ENT: No Symptoms Reported Respiratory: No Symptoms Reported Cardiovascular: Light Headedness Gastrointestinal: No Symptoms Reported Genitourinary: No Symptoms Reported Musculoskeletal: No Symptoms Reported Skin: No Symptoms Reported Neurological: Weakness, Confusion - Physical Exam Vital Signs: Temperature 97.9 F Temperature 98.3 F Pulse Rate 120 Pulse Rate 107 Respiratory Rate 24 Respiratory Rate 15 Blood Pressure [Left Arm] 132/68 Blood Pressure 105/63 Blood Pressure 117/58 O2 Sat by Pulse Oximetry 91 O2 Sat by Pulse Oximetry 94 Oriented: Not Oriented Eyes: Normal Ear: Normal Nose: Normal Throat: Normal Respiratory: Diminished Throughout Cardiovascular: Tachycardia : Normal Auscultation: Bowel Sounds: Normal Palpation: Normal Tenderness: Normal Skin: Decreased Turgur Musculoskeletal: Normal Psychiatric: Normal Mood Description: Flat Affect: Flat Speech Pattern: Inappropriate - Assessment/Plan (1) Acute UTI Status: Acute Plan: ADMIT, NORMAL SALINE WITH 20MEQ KCL AT 125 ML/HR, INVANZ 1G IV DAILY, THE POTASSIUM AND MAGNESIUM PROTOCOLS, XARELTO 10MG PO DAILY, METOPROLOL XL 12.5MG DAILY, TYLENOL 650MG Q4H PRN. HER HOME MEDICATIONS OF SEROQUEL 25MG HS, XARELTO 10MG DAILY, ESCITALOPRAM, MELOXICAM, ASPIRIN, AND AN EXELON PATCH WERE RESUMED. (2) Atrial fibrillation with RVR Status: Acute (3) Dehydration Status: Acute (4) Hypokalemia Status: Acute (5) D-dimer, elevated Status: Acute (6) Weakness Status: Acute (7) Dementia Qualifiers: Dementia type: unspecified type Dementia severity: moderate Dementia behavioral or psychological symptom: unspecified whether behavioral, psychotic, or mood disturbance or anxiety Qualified Code(s): F03.B0 - Unspecified dementia, moderate, without behavioral disturbance, psychotic disturbance, mood disturbance, and anxiety Status: Chronic - Allergies Allergies/Adverse Reactions: Allergies Allergy/AdvReac Type Severity Reaction Status Date / Time No Known Drug Allergies Allergy Verified 02/10/23 19:41
[2023-02-11] MEDS ORDERED: LEXAPRO ONE (13:08)
[2023-02-11] MEDS: MOBIC TAB 15 MG PO SCH (13:14)
[2023-02-11] MEDS: LEXAPRO PO SCH (13:15)
[2023-02-11] MEDS: INVanz INJ 1 GRAM VIAL 1 G in NS 100 ML IV 100 ML IV SCH (13:15)
[2023-02-11] MEDS: ECOTRIN TAB 325 MG PO SCH (13:15)
[2023-02-11] MEDS: SEROquel TAB 25 mg PO SCH (20:09)
[2023-02-12] MEDS: NS + KCL 20 MEQ/L 1,000 ML IV SCH ×3 (01:18→17:31)
[2023-02-12 05:30] LABS: BASOPHILS # (AUTO) 0.1 X10^3/uL (0.0-0.1); BASOPHILS % (AUTO) 0.7 % (0.2-1.0); EOSINOPHILS # (AUTO) 0.1 x10^3/uL (0.0-0.2); EOSINOPHILS % (AUTO) 1.4 % (0.9-2.9); HEMATOCRIT 33.1 % (36.0-47.0); HEMOGLOBIN 11.4 g/dL (12.0-16.0); LYMPHOCYTES # (AUTO) 1.4 X10^3/uL (1.3-2.9); LYMPHOCYTES % (AUTO) 19.1 % (21.0-51.0); MEAN CORPUSCULAR HEMOGLOBIN 30.3 pg (27.0-34.0); MEAN CORPUSCULAR HGB CONC 34.5 g/dL (33.0-35.0); MEAN CORPUSCULAR VOLUME 87.9 fL (80.0-100.0); MEAN PLATELET VOLUME 9.7 fL (7.4-11.0); MONOCYTES # (AUTO) 0.7 x10^3/uL (0.3-0.8); MONOCYTES % (AUTO) 8.8 % (0.0-13.0); NEUTROPHILS # (AUTO) 5.3 x10^3/uL (2.2-4.8); PLATELET COUNT 255 X10^3/uL (150.0-450.0); RED BLOOD COUNT 3.77 X10^6/uL (3.5-5.4); RED CELL DISTRIBUTION WIDTH 13.8 % (11.6-16.5); WHITE BLOOD COUNT 7.5 X10^3/uL (3.6-10.0)
[2023-02-12 05:50] LABS: ALANINE AMINOTRANSFERASE 60 Units/L (12-78); ALBUMIN 2.1 g/dL (3.4-5.0); ALKALINE PHOSPHATASE 73 Units/L (46-116); ASPARTATE AMINO TRANSFERASE 53 Units/L (15-37); BLOOD UREA NITROGEN 18 mg/dL (7-18); CALCIUM 7.6 mg/dL (8.5-10.1); CARBON DIOXIDE 25.1 mmol/L (21-32); CHLORIDE 106 mmol/L (98-107); COR CA(FOR HYPOALB) 9.1 mg/dL (8.5-10.1); CREATININE 1.08 mg/dL (0.55-1.02); GLUCOSE 94 mg/dL (65-99); POTASSIUM 3.8 mmol/L (3.5-5.1); SODIUM 139 mmol/L (136-145); TOTAL PROTEIN 5.9 g/dL (6.4-8.2); eGFR NON BLACK RACES 51 (>60)
[2023-02-12] MEDS ORDERED: LEXAPRO ONE (07:56)
[2023-02-12] MEDS: MOBIC TAB 15 MG PO SCH (08:25)
[2023-02-12] MEDS: ECOTRIN TAB 325 MG PO SCH (08:25)
[2023-02-12] MEDS: LEXAPRO PO SCH (08:27)
[2023-02-12] MEDS: TOPROL XL PO SCH (08:27)
[2023-02-12] MEDS: XARELTO PO SCH (08:53)
[2023-02-12] MEDS: INVanz INJ 1 GRAM VIAL 1 G in NS 100 ML IV 100 ML IV SCH (08:53)
[2023-02-12] MEDS: EXELON PATCH TD SCH (10:00)
[2023-02-12] MEDS ORDERED: NS 100 ML IV 100 ML ONE (10:21)
--- NOTE | 2023-02-12 11:10 | PCM.PROG ---
Progress Note - Progress Note for Day of Date of Exam: 02/12/23 - Subjective Subjective: IS CURRENTLY OBSERVATION STATUS FOR TREATMENT OF ACUTE UTI, ATRIAL FIBRILLATION, DEHYDRATION, HYPOKALEMIA, ELEVATED D-DIMER, AND GENERALIZED WEAKNESS. TODAY, SHE IS ALERT AND ORIENTED, LYING IN BED ON MORNING ROUNDS. SHE CONTINUES TO COMPLAIN OF WEAKNESS. PATIENTS DAUGHTER IS AT BEDSIDE AND REPORTS THAT SHE CONTINUES TO HAVE AN UNSTEADY GAIT AND REQUIRES ASSISTANCE WITH AMBULATION. ON EXAMINATION, SHE CONTINUES TO BE TACHY WITH HR 100-115. ATRIAL FIBRILLATION NOTED. BILATERAL LUNGS ARE NOTED WITH DIMINISHED LUNG SOUNDS THROUGHOUT. ABDOMEN IS ROUND, SOFT, AND NON-TENDER WITH NORMAL BOWEL SOUNDS NOTED IN ALL QUADRANTS. GOOD MOVEMENT NOTED TO UPPER AND LOWER EXTREMITIES WITH NO EDEMA NOTED. HER VITALS THIS MORNING ARE: 97.6-105-23-99%-107/82. SHE IS CURRENTLY ON ROOM AIR. LABS WERE OBTAINED. WBC 7.5, RBC 3.77, HGB 11.4, HCT 33.1, PLT COUNT 255, SODIUM 139, POTASSIUM 3.8, CHLORIDE 106, BUN 18, CREATININE 1.08, GLUCOSE 94, CALCIUM 7.6, AST 53, ALT 60, ALK PHOS 73, TOTAL PROTEIN 5.9, ALBUMIN 2.1. URINE CULTURE IS POSITIVE FOR GROWTH OF E.COLI. BLOOD CULTURES ARE PENDING. SHE IS CURRENTLY RECEIVING NORMAL SALINE WITH 20MEQ KCL AT 125 ML/HR, INVANZ 1G IV DAILY, THE POTASSIUM AND MAGNESIUM PROTOCOLS, XARELTO 10MG PO DAILY, METOPROLOL XL 12.5MG DAILY, TYLENOL 650MG Q4H PRN. HER HOME MEDICATIONS OF SEROQUEL 25MG HS, ESCITALOPRAM, MELOXICAM, ASPIRIN, AND AN EXELON PATCH WERE RESUMED. WE WILL CONTINUE WITH CURRENT PLAN OF CARE TODAY. SINCE HER GFR IS IN A SAFE RANGE, WE WILL OBTAIN A CHEST CTA TO RULE OUT PULMONARY EMBOLISM. OTHERWISE, WE WILL FOLLOW-UP WITH AM LABS AND CONTINUE TO MONITOR. TIME SPENT ON CLINICAL ASSESSMENT, REVIWING LABS AND IMAGING, DECISION MAKING, AND DOCUMENTATION GREATER THAN 45 MINUTES. - Past Medical Family Social History Past Med/Fam/Surg Hx: No changes since H&P Allergies: Allergies No Known Drug Allergies Allergy (Verified 02/10/23 19:41) - Review of Systems ROS: No change since H&P - Vital Signs and I&O's Vital Signs: Temperature 97.6 F Temperature 98.3 F Pulse Rate 105 Pulse Rate 107 Respiratory Rate 23 Respiratory Rate 15 Blood Pressure [Left Arm] 132/68 Blood Pressure 107/82 Blood Pressure 117/58 O2 Sat by Pulse Oximetry 99 O2 Sat by Pulse Oximetry 94 Intake and Output: Intake & Output 02/09/23 02/10/23 02/11/23 02/12/23 11:59 11:59 11:59 11:59 Intake Total 1471 / 1471 3745 / 3745 Balance 1471 / 1471 3745 / 3745 - Physical Exam Oriented: Not Oriented Eyes: Normal Ear: Normal Nose: Normal Throat: Normal Respiratory: Generalized, Diminished Cardiovascular: Tachycardia : Normal Auscultation: Bowel Sounds: Normal Palpation: Normal Tenderness: Normal Skin: Decreased Turgur Musculoskeletal: Normal Psychiatric: Normal Mood Description: Flat Affect: Flat Speech Pattern: Clear, Appropriate - Laboratory and Diagnostics Result Diagrams: 02/12/23 04:28 02/12/23 04:28 Labs: 02/10/23 16:16 Blood Blood Culture - Preliminary 02/10/23 16:08 Blood Blood Culture - Preliminary 02/10/23 15:21 Urine,Catheterized Urine Culture - Final Escherichia Coli Laboratory WBC 7.5 X10^3/uL (3.6-10.0) 02/12/23 04:28 RBC 3.77 X10^6/uL (3.5-5.4) 02/12/23 04:28 Hgb 11.4 g/dL (12.0-16.0) L 02/12/23 04:28 Hct 33.1 % (36.0-47.0) L 02/12/23 04:28 MCV 87.9 fL (80.0-100.0) 02/12/23 04:28 MCH 30.3 pg (27.0-34.0) 02/12/23 04:28 MCHC 34.5 g/dL (33.0-35.0) 02/12/23 04:28 RDW 13.8 % (11.6-16.5) 02/12/23 04:28 Plt Count 255 X10^3/uL (150.0-450.0) 02/12/23 04:28 MPV 9.7 fL (7.4-11.0) 02/12/23 04:28 Neut % (Auto) 70.0 % (42.0-75.0) 02/12/23 04: Lymph % (Auto) 19.1 % (21.0-51.0) L 02/12/23 04: [place] % (Auto) 8.8 % (0.0-13.0) 02/12/23 04: Eos % (Auto) 1.4 % (0.9-2.9) 02/12/23 04: Baso % (Auto) 0.7 % (0.2-1.0) 02/12/23 04:28 Neut # (Auto) 5.3 x10^3/uL (2.2-4.8) H 02/12/23 04: Lymph # (Auto) 1.4 X10^3/uL (1.3-2.9) 02/12/23 04:28 [place] # (Auto) 0.7 x10^3/uL (0.3-0.8) 02/12/23 04: Eos # (Auto) 0.1 x10^3/uL (0.0-0.2) 02/12/23 04:28 Baso # (Auto) 0.1 X10^3/uL (0.0-0.1) 02/12/23 04:28 Absolute Nucleated RBC 0.0 /100WBC 02/12/23 04:28 PT 15.2 SECONDS (11.8-14.3) 02/10/23 10:58 INR Target Range - 02/10/23 10:58 INR 1.22 (0.8-1.3) 02/10/23 10:58 APTT 31.3 SECONDS (22.9-36.5) 02/10/23 10:58 PTT Comment - 02/10/23 10:58 D-Dimer 5.52 ug/ml (0.0-0.57) H 02/10/23 10:58 Sodium 139 mmol/L (136-145) 02/12/23 04:28 Corrected Sodium TNP 02/12/23 04:28 Potassium 3.8 mmol/L (3.5-5.1) 02/12/23 04:28 Chloride 106 mmol/L (98-107) 02/12/23 04:28 Carbon Dioxide 25.1 mmol/L (21-32) 02/12/23 04:28 BUN 18 mg/dL (7-18) 02/12/23 04:28 Creatinine 1.08 mg/dL (0.55-1.02) H 02/12/23 04:28 Est GFR (MDRD) Af Amer > 60 (>60) 02/12/23 04:28 Est GFR (MDRD) Non-Af 51 (>60) L 02/12/23 04:28 Glucose 94 mg/dL (65-99) 02/12/23 04:28 Lactic Acid 1.4 mmol/L (0.4-2.0) 02/10/23 16:08 Calcium 7.6 mg/dL (8.5-10.1) L 02/12/23 04:28 Corrected Calcium 9.1 mg/dL (8.5-10.1) 02/12/23 04:28 Magnesium 2.1 mg/dL (2.0-2.9) 02/10/23 16:08 Total Bilirubin 0.30 mg/dL (0.2-1.0) 02/12/23 04:28 AST 53 Units/L (15-37) H 02/12/23 04:28 ALT 60 Units/L (12-78) 02/12/23 04:28 Alkaline Phosphatase 73 Units/L (46-116) 02/12/23 04:28 Creatine Kinase 686 Units/L (26-192) H 02/11/23 00:10 Troponin I High Sens 34.8 ng/L (4.0-60.0) 02/11/23 00:10 B-Natriuretic Peptide 390 pg/mL (0-79) H 02/11/23 04:11 Total Protein 5.9 g/dL (6.4-8.2) L 02/12/23 04:28 Albumin 2.1 g/dL (3.4-5.0) L 02/12/23 04:28 Globulin 3.8 g/dL (2.5-4.5) 02/12/23 04:28 Albumin/Globulin Ratio 0.6 Ratio (1.1-2.1) L 02/12/23 04:28 Specimen Type Catherized urine 02/10/23 15:21 Urine Color Yellow (YELLOW) 02/10/23 15:21 Urine Appearance Hazy (CLEAR) 02/10/23 15:21 Urine pH 6.0 (5.0 - 8.0) 02/10/23 15:21 Ur Specific [place] 1.015 (1.000-1.030) 02/10/23 15:21 Urine Protein 3+ (NEGATIVE) 02/10/23 15:21 Urine Glucose (UA) Negative (NEGATIVE) 02/10/23 15:21 Urine Ketones Negative (NEGATIVE) 02/10/23 15:21 Urine Blood 5+ (NEGATIVE) 02/10/23 15:21 Urine Nitrite Positive (NEGATIVE) 02/10/23 15:21 Urine Bilirubin Negative (NEGATIVE) 02/10/23 15:21 Urine Urobilinogen Normal (NORMAL) 02/10/23 15:21 Ur Leukocyte Esterase 3+ (NEGATIVE) 02/10/23 15:21 Urine RBC 0-2 /HPF (0-3) 02/10/23 15:21 Urine WBC Tntc /HPF (0-5) A 02/10/23 15:21 Ur Squamous Epith Cells Rare /HPF (NEGATIVE) 02/10/23 15:21 Urine Bacteria 1+ /HPF (NEGATIVE) 02/10/23 15:21 Ur Culture Indicated? Yes/culture set up 02/10/23 15:21 SARS-CoV-2 (PCR) Negative (NEGATIVE) 02/10/23 13:25 Influenza Type A (PCR) Negative (NEGATIVE) 02/10/23 13:25 Influenza Type B (PCR) Negative (NEGATIVE) 02/10/23 13:25 RSV (PCR) Negative (NEGATIVE) 02/10/23 13:25 - Plan (1) Acute UTI Status: Acute Plan: NORMAL SALINE WITH 20MEQ KCL AT 125 ML/HR, INVANZ 1G IV DAILY, THE POTASSIUM AND MAGNESIUM PROTOCOLS, XARELTO 10MG PO DAILY, METOPROLOL XL 12.5MG DAILY, TYLENOL 650MG Q4H PRN. HER HOME MEDICATIONS OF SEROQUEL 25MG HS, ESCITALOPRAM, MELOXICAM, ASPIRIN, AND AN EXELON PATCH WERE RESUMED. (2) Atrial fibrillation with RVR Status: Acute (3) Dehydration Status: Acute (4) Hypokalemia Status: Acute (5) D-dimer, elevated Status: Acute Plan: OBTAIN CHEST CTA (6) Weakness Status: Acute (7) Dementia Status: Chronic Qualifiers: Dementia type: unspecified type Dementia severity: moderate Dementia behavioral or psychological symptom: unspecified whether behavioral, psychotic, or mood disturbance or anxiety Qualified Code(s): F03.B0 - Unspecified dementia, moderate, without behavioral disturbance, psychotic disturbance, mood disturbance, and anxiety
--- NOTE | 2023-02-12 12:40 | CT ---
HISTORYELEVATED D-DMIER, RULE OUT PESTUDYCTA [id number] raphael protocol of the lungs was performed with contrast. 3-D MIP images were performed. CT scan was performed following ALARA (as low as Reasonable Achievable) Coronal and Sagittal reformatted images were performed.FINDINGSThe thyroid gland is small. There is no axillary adenopathy. There is again seen pretracheal lymph nodes measuring in short axis approximately 1.6 centimeters.The ascending aorta measures 4.6 centimeters unchanged since prior study, there is trace bilateral effusions with interval improvement of previously seen right sided pleural effusionThere is no evidence of filling defects in the pulmonary arteries, no evidence of PEThe spleen is no enlarge, the liver demonstrate a focal cyst in the left lobe measuring approximately 2.3 centimeters. No adrenal masses in the included images, the stomach is not distendedLung windows there is patchy atelectasis at the bases, no evidence of focal pneumonia. Mild ground-glass radiopacity in the left upper lobe probably atelectasis, no suspicious lung nodules.Bone windows no evidence of aggressive bone lesions. No acute fractures.IMPRESSIONNo radiographic evidence of PE.Interval improvement of small right pleural effusion, trace in the current study.Stable aneurysm of the ascending aorta of 4.6 centimeters.Electronically signed by: Karin Bates (Feb 12, 2023 12:39:14)
[2023-02-12] MEDS: SEROquel TAB 25 mg PO SCH (21:20)
[2023-02-12] MEDS: RESTORIL CAP 15 MG PO PRN (21:20)
[2023-02-13] MEDS: NS + KCL 20 MEQ/L 1,000 ML IV SCH ×3 (01:40→20:28)
[2023-02-13 05:22] LABS: BASOPHILS # (AUTO) 0.1 X10^3/uL (0.0-0.1); BASOPHILS % (AUTO) 0.9 % (0.2-1.0); EOSINOPHILS # (AUTO) 0.2 x10^3/uL (0.0-0.2); EOSINOPHILS % (AUTO) 2.8 % (0.9-2.9); HEMOGLOBIN 10.6 g/dL (12.0-16.0); LYMPHOCYTES # (AUTO) 1.6 X10^3/uL (1.3-2.9); LYMPHOCYTES % (AUTO) 23.9 % (21.0-51.0); MEAN CORPUSCULAR HEMOGLOBIN 30.4 pg (27.0-34.0); MEAN CORPUSCULAR HGB CONC 34.4 g/dL (33.0-35.0); MEAN CORPUSCULAR VOLUME 88.5 fL (80.0-100.0); MEAN PLATELET VOLUME 9.2 fL (7.4-11.0); MONOCYTES # (AUTO) 0.6 x10^3/uL (0.3-0.8); NEUTROPHILS # (AUTO) 4.3 x10^3/uL (2.2-4.8); NEUTROPHILS % (AUTO) 63.4 % (42.0-75.0); PLATELET COUNT 297 X10^3/uL (150.0-450.0); RED CELL DISTRIBUTION WIDTH 13.7 % (11.6-16.5); WHITE BLOOD COUNT 6.8 X10^3/uL (3.6-10.0)
[2023-02-13 05:27] LABS: ALANINE AMINOTRANSFERASE 61 Units/L (12-78); ALBUMIN 1.9 g/dL (3.4-5.0); ALKALINE PHOSPHATASE 69 Units/L (46-116); ASPARTATE AMINO TRANSFERASE 66 Units/L (15-37); BLOOD UREA NITROGEN 11 mg/dL (7-18); CALCIUM 7.6 mg/dL (8.5-10.1); CARBON DIOXIDE 26.3 mmol/L (21-32); CHLORIDE 107 mmol/L (98-107); COR CA(FOR HYPOALB) 9.3 mg/dL (8.5-10.1); CREATININE 0.92 mg/dL (0.55-1.02); GLUCOSE 102 mg/dL (65-99); SODIUM 141 mmol/L (136-145); TOTAL PROTEIN 5.7 g/dL (6.4-8.2); eGFR NON BLACK RACES > 60 (>60)
[2023-02-13] MEDS ORDERED: LEXAPRO ONE (08:18)
[2023-02-13] MEDS: INVanz INJ 1 GRAM VIAL 1 G in NS 100 ML IV 100 ML IV SCH (09:36)
[2023-02-13] MEDS: LEXAPRO PO SCH (09:36)
[2023-02-13] MEDS: XARELTO PO SCH (09:37)
[2023-02-13] MEDS: TOPROL XL PO SCH (09:37)
[2023-02-13] MEDS: ECOTRIN TAB 325 MG PO SCH (09:37)
[2023-02-13] MEDS: MOBIC TAB 15 MG PO SCH (09:37)
[2023-02-13] MEDS: EXELON PATCH TD SCH (09:49)
--- NOTE | 2023-02-13 16:55 | PCM.PROG ---
Progress Note - Progress Note for Day of Date of Exam: 02/13/23 - Subjective Subjective: IS CURRENTLY OBSERVATION STATUS FOR TREATMENT OF ACUTE E.COLI UTI, ATRIAL FIBRILLATION, DEHYDRATION, HYPOKALEMIA, ELEVATED D-DIMER, AND GENERALIZED WEAKNESS. TODAY, SHE IS ALERT, LYING IN BED ON MORNING ROUNDS. SHE CONTINUES TO COMPLAIN OF WEAKNESS. PATIENTS DAUGHTER IS AT BEDSIDE AND REPORTS THAT SHE CONTINUES TO HAVE AN UNSTEADY GAIT AND REQUIRES ASSISTANCE WITH AMBULATION. SHE REPORTS THAT SHE HAS ALSO BEEN CONFUSED AND DISORIENTED THIS MORNING AND THROUGHOUT THE NIGHT. ON EXAMINATION, SHE CONTINUES TO BE TACHY WITH HR 100-115. ATRIAL FIBRILLATION NOTED. BILATERAL LUNGS ARE NOTED WITH DIMINISHED LUNG SOUNDS THROUGHOUT. ABDOMEN IS ROUND, SOFT, AND NON-TENDER WITH NORMAL BOWEL SOUNDS NOTED IN ALL QUADRANTS. GOOD MOVEMENT NOTED TO UPPER AND LOWER EXTREMITIES WITH NO EDEMA NOTED. HER VITALS THIS MORNING ARE: 97.6-105-23-99%-107/82. SHE IS CURRENTLY ON ROOM AIR. LABS WERE OBTAINED. WBC 6.8, RBC 3.50, HGB 10.6, HCT 31.0, PLT COUNT 297, SODIUM 141, POTASSIUM 4.0, CHLORIDE 107, BUN 11, CREATININE 0.92, GLUCOSE 102, CALCIUM 7.6, AST 66, ALT 61, ALK PHOS 69, TOTAL PROTEIN 5.7, ALBUMIN 1.9. URINE CULTURE IS POSITIVE FOR GROWTH OF E.COLI. BLOOD CULTURES ARE ALSO POSITIVE FOR GROWTH OF E.COLI. WE OBTAINED A CHEST CTA YESTERDAY. IT REVEALED: No radiographic evidence of PE. In terval improvement of small right pleural effusion, trace in the current study. Stable aneurysm of the ascending aorta of 4.6 centimeters. SHE IS CURRENTLY RECEIVING NORMAL SALINE WITH 20MEQ KCL AT 125 ML/HR, INVANZ 1G IV DAILY, THE POTASSIUM AND MAGNESIUM PROTOCOLS, XARELTO 10MG PO DAILY, METOPROLOL XL 12.5MG DAILY, TYLENOL 650MG Q4H PRN. HER HOME MEDICATIONS OF SEROQUEL 25MG HS, ESCITALOPRAM, MELOXICAM, ASPIRIN, AND AN EXELON PATCH WERE RESUMED. WE WILL CONTINUE WITH CURRENT PLAN OF CARE TODAY. WE WILL HAVE PHYSICAL THERAPY WORK WITH HER TODAY. OTHERWISE, WE WILL FOLLOW-UP WITH AM LABS AND CONTINUE TO MONITOR. TIME SPENT ON CLINICAL ASSESSMENT, REVIWING LABS AND IMAGING, DECISION MAKING, AND DOCUMENTATION GREATER THAN 45 MINUTES. - Past Medical Family Social History Past Med/Fam/Surg Hx: No changes since H&P Allergies: Allergies No Known Drug Allergies Allergy (Verified 02/10/23 19:41) - Review of Systems ROS: No change since H&P - Vital Signs and I&O's Vital Signs: Temperature 97.6 F Temperature 98.3 F Pulse Rate 114 Pulse Rate 107 Respiratory Rate 24 Respiratory Rate 15 Blood Pressure [Left Arm] 132/68 Blood Pressure 154/79 Blood Pressure 117/58 O2 Sat by Pulse Oximetry 93 O2 Sat by Pulse Oximetry 94 Intake and Output: Intake & Output 02/11/23 02/12/23 02/13/23 02/14/23 11:59 11:59 11:59 11:59 Intake Total 1471 / 1471 3745 / 3745 3866 / 3866 2010 Balance 1471 / 1471 3745 / 3745 3866 / 3866 2010 - Physical Exam Oriented: Not Oriented Eyes: Normal Ear: Normal Nose: Normal Throat: Normal Respiratory: Generalized, Diminished Cardiovascular: Tachycardia : Normal Auscultation: Bowel Sounds: Normal Tenderness: Normal Skin: Decreased Turgur Musculoskeletal: Normal Psychiatric: Normal Mood Description: Flat Affect: Flat Speech Pattern: Clear, Appropriate - Laboratory and Diagnostics Result Diagrams: 02/13/23 04:09 02/13/23 04:09 Labs: 02/10/23 16:16 Blood Blood Culture - Final Escherichia Coli 02/10/23 16:08 Blood Blood Culture - Final Escherichia Coli 02/10/23 15:21 Urine,Catheterized Urine Culture - Final Escherichia Coli Laboratory WBC 6.8 X10^3/uL (3.6-10.0) 02/13/23 04:09 RBC 3.50 X10^6/uL (3.5-5.4) 02/13/23 04:09 Hgb 10.6 g/dL (12.0-16.0) L 02/13/23 04:09 Hct 31.0 % (36.0-47.0) L 02/13/23 04:09 MCV 88.5 fL (80.0-100.0) 02/13/23 04:09 MCH 30.4 pg (27.0-34.0) 02/13/23 04:09 MCHC 34.4 g/dL (33.0-35.0) 02/13/23 04:09 RDW 13.7 % (11.6-16.5) 02/13/23 04:09 Plt Count 297 X10^3/uL (150.0-450.0) 02/13/23 04:09 MPV 9.2 fL (7.4-11.0) 02/13/23 04:09 Neut % (Auto) 63.4 % (42.0-75.0) 02/13/23 04:09 Lymph % (Auto) 23.9 % (21.0-51.0) 02/13/23 04:09 [place] % (Auto) 9.0 % (0.0-13.0) 02/13/23 04:09 Eos % (Auto) 2.8 % (0.9-2.9) 02/13/23 04:09 Baso % (Auto) 0.9 % (0.2-1.0) 02/13/23 04:09 Neut # (Auto) 4.3 x10^3/uL (2.2-4.8) 02/13/23 04:09 Lymph # (Auto) 1.6 X10^3/uL (1.3-2.9) 02/13/23 04:09 [place] # (Auto) 0.6 x10^3/uL (0.3-0.8) 02/13/23 04:09 Eos # (Auto) 0.2 x10^3/uL (0.0-0.2) 02/13/23 04:09 Baso # (Auto) 0.1 X10^3/uL (0.0-0.1) 02/13/23 04:09 Absolute Nucleated RBC 0.0 /100WBC 02/13/23 04:09 PT 15.2 SECONDS (11.8-14.3) 02/10/23 10:58 INR Target Range - 02/10/23 10:58 INR 1.22 (0.8-1.3) 02/10/23 10:58 APTT 31.3 SECONDS (22.9-36.5) 02/10/23 10:58 PTT Comment - 02/10/23 10:58 D-Dimer 5.52 ug/ml (0.0-0.57) H 02/10/23 10:58 Sodium 141 mmol/L (136-145) 02/13/23 04:09 Corrected Sodium TNP 02/13/23 04:09 Potassium 4.0 mmol/L (3.5-5.1) 02/13/23 04:09 Chloride 107 mmol/L (98-107) 02/13/23 04:09 Carbon Dioxide 26.3 mmol/L (21-32) 02/13/23 04:09 BUN 11 mg/dL (7-18) 02/13/23 04:09 Creatinine 0.92 mg/dL (0.55-1.02) 02/13/23 04:09 Est GFR (MDRD) Af Amer > 60 (>60) 02/13/23 04:09 Est GFR (MDRD) Non-Af > 60 (>60) 02/13/23 04:09 Glucose 102 mg/dL (65-99) H 02/13/23 04:09 Lactic Acid 1.4 mmol/L (0.4-2.0) 02/10/23 16:08 Calcium 7.6 mg/dL (8.5-10.1) L 02/13/23 04:09 Corrected Calcium 9.3 mg/dL (8.5-10.1) 02/13/23 04:09 Magnesium 2.1 mg/dL (2.0-2.9) 02/10/23 16:08 Total Bilirubin 0.20 mg/dL (0.2-1.0) 02/13/23 04:09 AST 66 Units/L (15-37) H 02/13/23 04:09 ALT 61 Units/L (12-78) 02/13/23 04:09 Alkaline Phosphatase 69 Units/L (46-116) 02/13/23 04:09 Creatine Kinase 686 Units/L (26-192) H 02/11/23 00:10 Troponin I High Sens 34.8 ng/L (4.0-60.0) 02/11/23 00:10 B-Natriuretic Peptide 390 pg/mL (0-79) H 02/11/23 04:11 Total Protein 5.7 g/dL (6.4-8.2) L 02/13/23 04:09 Albumin 1.9 g/dL (3.4-5.0) L 02/13/23 04:09 Globulin 3.8 g/dL (2.5-4.5) 02/13/23 04:09 Albumin/Globulin Ratio 0.5 Ratio (1.1-2.1) L 02/13/23 04:09 Specimen Type Catherized urine 02/10/23 15:21 Urine Color Yellow (YELLOW) 02/10/23 15:21 Urine Appearance Hazy (CLEAR) 02/10/23 15:21 Urine pH 6.0 (5.0 - 8.0) 02/10/23 15:21 Ur Specific [place] 1.015 (1.000-1.030) 02/10/23 15:21 Urine Protein 3+ (NEGATIVE) 02/10/23 15:21 Urine Glucose (UA) Negative (NEGATIVE) 02/10/23 15:21 Urine Ketones Negative (NEGATIVE) 02/10/23 15:21 Urine Blood 5+ (NEGATIVE) 02/10/23 15:21 Urine Nitrite Positive (NEGATIVE) 02/10/23 15:21 Urine Bilirubin Negative (NEGATIVE) 02/10/23 15:21 Urine Urobilinogen Normal (NORMAL) 02/10/23 15:21 Ur Leukocyte Esterase 3+ (NEGATIVE) 02/10/23 15:21 Urine RBC 0-2 /HPF (0-3) 02/10/23 15:21 Urine WBC Tntc /HPF (0-5) A 02/10/23 15:21 Ur Squamous Epith Cells Rare /HPF (NEGATIVE) 02/10/23 15:21 Urine Bacteria 1+ /HPF (NEGATIVE) 02/10/23 15:21 Ur Culture Indicated? Yes/culture set up 02/10/23 15:21 SARS-CoV-2 (PCR) Negative (NEGATIVE) 02/10/23 13:25 Influenza Type A (PCR) Negative (NEGATIVE) 02/10/23 13:25 Influenza Type B (PCR) Negative (NEGATIVE) 02/10/23 13:25 RSV (PCR) Negative (NEGATIVE) 02/10/23 13:25 - Plan (1) Sepsis Status: Acute Qualifiers: Sepsis type: sepsis due to unspecified organism Sepsis acute organ dysfunction status: with acute organ dysfunction Severe sepsis acute organ dysfunction type: acute renal failure Acute renal failure type: unspecified Severe sepsis shock status: without septic shock Qualified Code(s): A41.9 - Se psis, unspecified organism; R65.20 - Severe sepsis without septic shock; N17.9 - Acute kidney failure, unspecified Plan: NORMAL SALINE WITH 20MEQ KCL AT 125 ML/HR, INVANZ 1G IV DAILY, THE POTASSIUM AND MAGNESIUM PROTOCOLS, XARELTO 10MG PO DAILY, METOPROLOL XL 12.5MG DAILY, TYLENOL 650MG Q4H PRN. HER HOME MEDICATIONS OF SEROQUEL 25MG HS, ESCITALOPRAM, MELOXICAM, ASPIRIN, AND AN EXELON PATCH WERE RESUMED. (2) Acute UTI Status: Acute (3) Atrial fibrillation with RVR Status: Acute (4) Dehydration Status: Acute (5) Hypokalemia Status: Acute (6) D-dimer, elevated Status: Acute (7) Weakness Status: Acute (8) Dementia Status: Chronic Qualifiers: Dementia type: unspecified type Dementia severity: moderate Dementia behavioral or psychological symptom: unspecified whether behavioral, psychotic, or mood disturbance or anxiety Qualified Code(s): F03.B0 - Unspecified dementia, moderate, without behavioral disturbance, psychotic disturbance, mood disturbance, and anxiety
[2023-02-13] MEDS: SEROquel TAB 25 mg PO SCH (20:27)
[2023-02-13] MEDS: RESTORIL CAP 15 MG PO PRN (20:27)
[2023-02-14] MEDS: NS + KCL 20 MEQ/L 1,000 ML IV SCH ×4 (02:30→23:49)
[2023-02-14 05:29] LABS: BASOPHILS # (AUTO) 0.1 X10^3/uL (0.0-0.1); BASOPHILS % (AUTO) 1.3 % (0.2-1.0); EOSINOPHILS # (AUTO) 0.2 x10^3/uL (0.0-0.2); EOSINOPHILS % (AUTO) 3.1 % (0.9-2.9); HEMATOCRIT 31.8 % (36.0-47.0); HEMOGLOBIN 10.9 g/dL (12.0-16.0); LYMPHOCYTES # (AUTO) 2.1 X10^3/uL (1.3-2.9); LYMPHOCYTES % (AUTO) 29.3 % (21.0-51.0); MEAN CORPUSCULAR HEMOGLOBIN 30.3 pg (27.0-34.0); MEAN CORPUSCULAR HGB CONC 34.3 g/dL (33.0-35.0); MEAN CORPUSCULAR VOLUME 88.1 fL (80.0-100.0); MEAN PLATELET VOLUME 8.7 fL (7.4-11.0); MONOCYTES # (AUTO) 0.5 x10^3/uL (0.3-0.8); MONOCYTES % (AUTO) 6.9 % (0.0-13.0); NEUTROPHILS # (AUTO) 4.3 x10^3/uL (2.2-4.8); NEUTROPHILS % (AUTO) 59.4 % (42.0-75.0); PLATELET COUNT 352 X10^3/uL (150.0-450.0); RED BLOOD COUNT 3.62 X10^6/uL (3.5-5.4); RED CELL DISTRIBUTION WIDTH 14.2 % (11.6-16.5); WHITE BLOOD COUNT 7.3 X10^3/uL (3.6-10.0)
[2023-02-14 05:30] LABS: PREALBUMIN 11.9 mg/dL (18-35.7)
[2023-02-14 05:44] LABS: ALANINE AMINOTRANSFERASE 58 Units/L (12-78); ALKALINE PHOSPHATASE 75 Units/L (46-116); ASPARTATE AMINO TRANSFERASE 56 Units/L (15-37); BLOOD UREA NITROGEN 8 mg/dL (7-18); CALCIUM 7.8 mg/dL (8.5-10.1); CARBON DIOXIDE 23.6 mmol/L (21-32); CHLORIDE 108 mmol/L (98-107); COR CA(FOR HYPOALB) 9.4 mg/dL (8.5-10.1); CREATININE 0.85 mg/dL (0.55-1.02); GLUCOSE 95 mg/dL (65-99); POTASSIUM 4.1 mmol/L (3.5-5.1); SODIUM 141 mmol/L (136-145); TOTAL PROTEIN 5.8 g/dL (6.4-8.2); eGFR NON BLACK RACES > 60 (>60)
[2023-02-14] MEDS ORDERED: LEXAPRO ONE (09:10)
[2023-02-14] MEDS: INVanz INJ 1 GRAM VIAL 1 G in NS 100 ML IV 100 ML IV SCH (09:15)
[2023-02-14] MEDS: XARELTO PO SCH (09:16)
[2023-02-14] MEDS: TOPROL XL PO SCH (09:16)
[2023-02-14] MEDS: LEXAPRO PO SCH (09:16)
[2023-02-14] MEDS: MOBIC TAB 15 MG PO SCH (09:17)
[2023-02-14] MEDS: ECOTRIN TAB 325 MG PO SCH (09:23)
[2023-02-14] MEDS: EXELON PATCH TD SCH (09:24)
--- NOTE | 2023-02-14 18:42 | PCM.PROG ---
Progress Note - Progress Note for Day of Date of Exam: 02/14/23 - Subjective Subjective: IS CURRENTLY OBSERVATION STATUS FOR TREATMENT OF SEPSIS, ACUTE E.COLI UTI, ATRIAL FIBRILLATION, DEHYDRATION, HYPOKALEMIA, ELEVATED D- DIMER, AND GENERALIZED WEAKNESS. TODAY, SHE IS ALERT, LYING IN BED ON MORNING ROUNDS. SHE CONTINUES TO COMPLAIN OF WEAKNESS TODAY. PATIENTS DAUGHTER IS AT BEDSIDE AND REPORTS THAT SHE CONTINUES TO HAVE AN UNSTEADY GAIT AND REQUIRES ASSISTANCE WITH AMBULATION. SHE REPORTS THAT SHE HAS ALSO BEEN CONFUSED AND DISORIENTED THIS MORNING AND THROUGHOUT THE NIGHT. ON EXAMINATION, SHE CONTINUES TO BE TACHY WITH HR 100-115. ATRIAL FIBRILLATION NOTED. BILATERAL LUNGS ARE NOTED WITH DIMINISHED LUNG SOUNDS THROUGHOUT. ABDOMEN IS ROUND, SOFT, AND NON- TENDER WITH NORMAL BOWEL SOUNDS NOTED IN ALL QUADRANTS. GOOD MOVEMENT NOTED TO UPPER AND LOWER EXTREMITIES WITH NO EDEMA NOTED. HER VITALS THIS MORNING ARE: 97.8-109-23-96%-150/78. SHE IS CURRENTLY ON OXYGEN VIA NASAL CANNULA AT 2 LPM. LABS WERE OBTAINED. WBC 7.3, RBC 3.62, HGB 10.9, HCT 31.8, PLT COUNT 352, SODIUM 141, POTASSIUM 4.1, CHLORIDE 108, CARBON DIOXIDE 23.6, BUN 8, CREATININE 0.85, GLUCOSE 95, CALCIUM 7.8, AST 56, ALT 58, ALK PHOS 75, TOTAL PROTEIN 5.8, ALBUMIN 2.0. URINE CULTURE IS POSITIVE FOR GROWTH OF E.COLI. BLOOD CULTURES ARE ALSO POSITIVE FOR GROWTH OF E.COLI. WE OBTAINED A CHEST CTA YESTERDAY. IT REVEALED: No radiographic evidence of PE. Interval improvement of small right pleural effusion, trace in the current study. Stable aneurysm of the ascending aorta of 4.6 centimeters. SHE IS CURRENTLY RECEIVING NORMAL SALINE WITH 20MEQ KCL AT 125 ML/HR, INVANZ 1G IV DAILY, THE POTASSIUM AND MAGNESIUM PROTOCOLS, XARELTO 10MG PO DAILY, METOPROLOL XL 12.5MG DAILY, TYLENOL 650MG Q4H PRN. HER HOME MEDICATIONS OF SEROQUEL 25MG HS, ESCITALOPRAM, MELOXICAM, ASPIRIN, AND AN EXELON PATCH WERE RESUMED. PHYSICAL THERAPY FEELS THAT PATIENT WOULD BENEFIT FROM CONTINUED PT SERVICES TO ADDRESS DEFICITS AND TO FACILITATE HIGHEST LEVEL OF FUNCTION. HER FAMILY REQUEST SHORT TERM PLACEMENT AT [facility] FOR PHYSICAL THERAPY AND REHAB. WE WILL CONTINUE WITH CURRENT PLAN OF CARE TODAY. OTHERWISE, WE WILL FOLLOW-UP WITH AM LABS AND CONTINUE TO MONITOR. TIME SPENT ON CLINICAL ASSESSMENT, REVIWING LABS AND IMAGING, DECISION MAKING, AND DOCUMENTATION GREATER THAN 45 MINUTES. - Past Medical Family Social History Past Med/Fam/Surg Hx: No changes since H&P Allergies: Allergies No Known Drug Allergies Allergy (Verified 02/10/23 19:41) - Review of Systems ROS: No change since H&P - Vital Signs and I&O's Vital Signs: Temperature 97.3 F Temperature 98.3 F Pulse Rate 114 Pulse Rate 107 Respiratory Rate 24 Respiratory Rate 15 Blood Pressure [Left Arm] 132/68 Blood Pressure 161/88 Blood Pressure 117/58 O2 Sat by Pulse Oximetry 95 O2 Sat by Pulse Oximetry 94 Intake and Output: Intake & Output 02/12/23 02/13/23 02/14/23 02/15/23 11:59 11:59 11:59 11:59 Intake Total 3745 / 3745 3866 / 3866 4101 / 4101 2839 / 2839 Balance 3745 / 3745 3866 / 3866 4101 / 4101 2839 / 2839 - Physical Exam Oriented: Person, Place Eyes: Normal Ear: Normal Nose: Normal Throat: Normal Respiratory: Generalized, Diminished Cardiovascular: Tachycardia : Normal Auscultation: Bowel Sounds: Normal Palpation: Normal Tenderness: Normal Skin: Normal Musculoskeletal: Normal Psychiatric: Normal Mood Description: Flat Affect: Flat Speech Pattern: Clear, Appropriate - Laboratory and Diagnostics Result Diagrams: 02/14/23 04:46 02/14/23 04:46 Labs: 02/10/23 16:16 Blood Blood Culture - Final Escherichia Coli 02/10/23 16:08 Blood Blood Culture - Final Escherichia Coli 02/10/23 15:21 Urine,Catheterized Urine Culture - Final Escherichia Coli Laboratory WBC 7.3 X10^3/uL (3.6-10.0) 02/14/23 04:46 RBC 3.62 X10^6/uL (3.5-5.4) 02/14/23 04:46 Hgb 10.9 g/dL (12.0-16.0) L 02/14/23 04:46 Hct 31.8 % (36.0-47.0) L 02/14/23 04:46 MCV 88.1 fL (80.0-100.0) 02/14/23 04:46 MCH 30.3 pg (27.0-34.0) 02/14/23 04:46 MCHC 34.3 g/dL (33.0-35.0) 02/14/23 04:46 RDW 14.2 % (11.6-16.5) 02/14/23 04:46 Plt Count 352 X10^3/uL (150.0-450.0) 02/14/23 04:46 MPV 8.7 fL (7.4-11.0) 02/14/23 04:46 Neut % (Auto) 59.4 % (42.0-75.0) 02/14/23 04:46 Lymph % (Auto) 29.3 % (21.0-51.0) 02/14/23 04:46 [place] % (Auto) 6.9 % (0.0-13.0) 02/14/23 04:46 Eos % (Auto) 3.1 % (0.9-2.9) H 02/14/23 04:46 Baso % (Auto) 1.3 % (0.2-1.0) H 02/14/23 04:46 Neut # (Auto) 4.3 x10^3/uL (2.2-4.8) 02/14/23 04:46 Lymph # (Auto) 2.1 X10^3/uL (1.3-2.9) 02/14/23 04:46 [place] # (Auto) 0.5 x10^3/uL (0.3-0.8) 02/14/23 04:46 Eos # (Auto) 0.2 x10^3/uL (0.0-0.2) 02/14/23 04:46 Baso # (Auto) 0.1 X10^3/uL (0.0-0.1) 02/14/23 04:46 Absolute Nucleated RBC 0.0 /100WBC 02/14/23 04:46 PT 15.2 SECONDS (11.8-14.3) 02/10/23 10:58 INR Target Range - 02/10/23 10:58 INR 1.22 (0.8-1.3) 02/10/23 10:58 APTT 31.3 SECONDS (22.9-36.5) 02/10/23 10:58 PTT Comment - 02/10/23 10:58 D-Dimer 5.52 ug/ml (0.0-0.57) H 02/10/23 10:58 Sodium 141 mmol/L (136-145) 02/14/23 04:46 Corrected Sodium TNP 02/14/23 04:46 Potassium 4.1 mmol/L (3.5-5.1) 02/14/23 04:46 Chloride 108 mmol/L (98-107) H 02/14/23 04:46 Carbon Dioxide 23.6 mmol/L (21-32) 02/14/23 04:46 BUN 8 mg/dL (7-18) 02/14/23 04:46 Creatinine 0.85 mg/dL (0.55-1.02) 02/14/23 04:46 Est GFR (MDRD) Af Amer > 60 (>60) 02/14/23 04:46 Est GFR (MDRD) Non-Af > 60 (>60) 02/14/23 04:46 Glucose 95 mg/dL (65-99) 02/14/23 04:46 Lactic Acid 1.4 mmol/L (0.4-2.0) 02/10/23 16:08 Calcium 7.8 mg/dL (8.5-10.1) L 02/14/23 04:46 Corrected Calcium 9.4 mg/dL (8.5-10.1) 02/14/23 04:46 Magnesium 2.1 mg/dL (2.0-2.9) 02/10/23 16:08 Total Bilirubin 0.30 mg/dL (0.2-1.0) 02/14/23 04:46 AST 56 Units/L (15-37) H 02/14/23 04:46 ALT 58 Units/L (12-78) 02/14/23 04:46 Alkaline Phosphatase 75 Units/L (46-116) 02/14/23 04:46 Creatine Kinase 686 Units/L (26-192) H 02/11/23 00:10 Troponin I High Sens 34.8 ng/L (4.0-60.0) 02/11/23 00:10 B-Natriuretic Peptide 390 pg/mL (0-79) H 02/11/23 04:11 Total Protein 5.8 g/dL (6.4-8.2) L 02/14/23 04:46 Albumin 2.0 g/dL (3.4-5.0) L 02/14/23 04:46 Globulin 3.8 g/dL (2.5-4.5) 02/14/23 04:46 Albumin/Globulin Ratio 0.5 Ratio (1.1-2.1) L 02/14/23 04:46 Prealbumin 11.9 mg/dL (18-35.7) L 02/14/23 04:46 Specimen Type Catherized urine 02/10/23 15:21 Urine Color Yellow (YELLOW) 02/10/23 15:21 Urine Appearance Hazy (CLEAR) 02/10/23 15:21 Urine pH 6.0 (5.0 - 8.0) 02/10/23 15:21 Ur Specific [place] 1.015 (1.000-1.030) 02/10/23 15:21 Urine Protein 3+ (NEGATIVE) 02/10/23 15:21 Urine Glucose (UA) Negative (NEGATIVE) 02/10/23 15:21 Urine Ketones Negative (NEGATIVE) 02/10/23 15:21 Urine Blood 5+ (NEGATIVE) 02/10/23 15:21 Urine Nitrite Positive (NEGATIVE) 02/10/23 15:21 Urine Bilirubin Negative (NEGATIVE) 02/10/23 15:21 Urine Urobilinogen Normal (NORMAL) 02/10/23 15:21 Ur Leukocyte Esterase 3+ (NEGATIVE) 02/10/23 15:21 Urine RBC 0-2 /HPF (0-3) 02/10/23 15:21 Urine WBC Tntc /HPF (0-5) A 02/10/23 15:21 Ur Squamous Epith Cells Rare /HPF (NEGATIVE) 02/10/23 15:21 Urine Bacteria 1+ /HPF (NEGATIVE) 02/10/23 15:21 Ur Culture Indicated? Yes/culture set up 02/10/23 15:21 SARS-CoV-2 (PCR) Negative (NEGATIVE) 02/10/23 13:25 Influenza Type A (PCR) Negative (NEGATIVE) 02/10/23 13:25 Influenza Type B (PCR) Negative (NEGATIVE) 02/10/23 13:25 RSV (PCR) Negative (NEGATIVE) 02/10/23 13:25 - Plan (1) Sepsis Status: Acute Qualifiers: Sepsis type: sepsis due to unspecified organism Sepsis acute organ dysfunction status: with acute organ dysfunction Severe sepsis acute organ dysfunction type: acute renal failure Acute renal failure type: unspecified Severe sepsis shock status: without septic shock Qualified Code(s): A41.9 - Sepsis, unspecified organism; R65.20 - Severe sepsis without septic shock; N17.9 - Acute kidney failure, unspecified Plan: NORMAL SALINE WITH 20MEQ KCL AT 125 ML/HR, INVANZ 1G IV DAILY, THE POTASSIUM AND MAGNESIUM PROTOCOLS, XARELTO 10MG PO DAILY, METOPROLOL XL 12.5MG DAILY, TYLENOL 650MG Q4H PRN. HER HOME MEDICATIONS OF SEROQUEL 25MG HS, ESCITALOPRAM, MELOXICAM, ASPIRIN, AND AN EXELON PATCH WERE RESUMED. (2) Acute UTI Status: Acute Plan: NORMAL SALINE WITH 20MEQ KCL AT 125 ML/HR, INVANZ 1G IV DAILY, THE POTASSIUM AND MAGNESIUM PROTOCOLS, XARELTO 10MG PO DAILY, METOPROLOL XL 12.5MG DAILY, TYLENOL 650MG Q4H PRN. HER HOME MEDICATIONS OF SEROQUEL 25MG HS, ESCITALOPRAM, MELOXICAM, ASPIRIN, AND AN EXELON PATCH WERE RESUMED. (3) Atrial fibrillation with RVR Status: Acute (4) Dehydration Status: Acute (5) Hypokalemia Status: Acute (6) D-dimer, elevated Status: Acute Plan: OBTAIN CHEST CTA (7) Weakness Status: Acute (8) Dementia Status: Chronic Qualifiers: Dementia type: unspecified type Dementia severity: moderate Dementia behavioral or psychological symptom: unspecified whether behavioral, psychotic, or mood disturbance or anxiety Qualified Code(s): F03.B0 - Unspecified dementia, moderate, without behavioral disturbance, psychotic disturbance, mood disturbance, and anxiety
[2023-02-14] MEDS: SEROquel TAB 25 mg PO SCH (20:29)
[2023-02-14] MEDS ORDERED: CARDIZEM CD 120 MG 24-HR PO SCH (23:45)
[2023-02-15] MEDS: NS + KCL 20 MEQ/L 1,000 ML IV SCH ×3 (01:45→18:07)
[2023-02-15 05:28] LABS: BASOPHILS # (AUTO) 0.1 X10^3/uL (0.0-0.1); BASOPHILS % (AUTO) 0.7 % (0.2-1.0); EOSINOPHILS # (AUTO) 0.2 x10^3/uL (0.0-0.2); EOSINOPHILS % (AUTO) 1.9 % (0.9-2.9); HEMATOCRIT 31.7 % (36.0-47.0); LYMPHOCYTES # (AUTO) 1.5 X10^3/uL (1.3-2.9); LYMPHOCYTES % (AUTO) 17.9 % (21.0-51.0); MEAN CORPUSCULAR HEMOGLOBIN 30.4 pg (27.0-34.0); MEAN CORPUSCULAR HGB CONC 34.6 g/dL (33.0-35.0); MEAN CORPUSCULAR VOLUME 87.8 fL (80.0-100.0); MEAN PLATELET VOLUME 8.7 fL (7.4-11.0); MONOCYTES # (AUTO) 0.6 x10^3/uL (0.3-0.8); MONOCYTES % (AUTO) 7.4 % (0.0-13.0); NEUTROPHILS # (AUTO) 6.1 x10^3/uL (2.2-4.8); NEUTROPHILS % (AUTO) 72.1 % (42.0-75.0); PLATELET COUNT 419 X10^3/uL (150.0-450.0); RED BLOOD COUNT 3.61 X10^6/uL (3.5-5.4); RED CELL DISTRIBUTION WIDTH 13.8 % (11.6-16.5); WHITE BLOOD COUNT 8.4 X10^3/uL (3.6-10.0)
[2023-02-15 05:43] LABS: ALANINE AMINOTRANSFERASE 53 Units/L (12-78); ALBUMIN 2.1 g/dL (3.4-5.0); ALKALINE PHOSPHATASE 79 Units/L (46-116); ASPARTATE AMINO TRANSFERASE 40 Units/L (15-37); BLOOD UREA NITROGEN 9 mg/dL (7-18); CALCIUM 8.3 mg/dL (8.5-10.1); CARBON DIOXIDE 24.3 mmol/L (21-32); CHLORIDE 108 mmol/L (98-107); COR CA(FOR HYPOALB) 9.8 mg/dL (8.5-10.1); COR NA(FOR HYPERGLY) 142 mmol/L (136-145); CREATININE 0.82 mg/dL (0.55-1.02); GLUCOSE 124 mg/dL (65-99); POTASSIUM 4.4 mmol/L (3.5-5.1); SODIUM 141 mmol/L (136-145); eGFR NON BLACK RACES > 60 (>60)
[2023-02-15] MEDS ORDERED: LEXAPRO ONE (08:23)
[2023-02-15] MEDS: MOBIC TAB 15 MG PO SCH (08:36)
[2023-02-15] MEDS: INVanz INJ 1 GRAM VIAL 1 G in NS 100 ML IV 100 ML IV SCH (08:36)
[2023-02-15] MEDS: LEXAPRO PO SCH (08:36)
[2023-02-15] MEDS: TOPROL XL PO SCH (08:37)
[2023-02-15] MEDS: ECOTRIN TAB 325 MG PO SCH (08:37)
[2023-02-15] MEDS: XARELTO PO SCH (08:37)
[2023-02-15] MEDS ORDERED: PATIENT'S HOME MEDICATION TD SCH (09:00)
[2023-02-15 18:30] VITALS: BP 130/86; PULSE 84; TEMP 97.1; O2SAT 96
== END 2023-02-15 19:05 ==
LOC: MED/SURG 10:18 → ICU 10:18 → ER 10:18 → ICU 16:45
PROVIDERS: ADMIT Internal Medicine; ATTEND Internal Medicine
DX: R53.1 Weakness; B96.29 Other Escherichia coli [E. coli] as the cause of diseases classified elsewhere; E86.0 Dehydration; I10 Essential (primary) hypertension; J90 Pleural effusion, not elsewhere classified; I48.91 Unspecified atrial fibrillation; E87.6 Hypokalemia; R26.81 Unsteadiness on feet; A41.51 Sepsis due to Escherichia coli [E. coli]; R42 Dizziness and giddiness; Z20.822 Contact with and (suspected) exposure to COVID-19; F03.B0 Unspecified dementia, moderate, without behavioral disturbance, psychotic disturbance, mood disturbance, and anxiety

== ENCOUNTER 2023-04-20 19:00 | Observation (INO) ==
[2023-04-20] MEDS ORDERED: NS 1,000 ML IV 1,000 ML IV SCH (19:25)
[2023-04-20] MEDS ORDERED: NS 1,000 ML IV 1,000 ML ONE (19:26)
--- NOTE | 2023-04-20 19:32 | EKG ---
Test Reason : syncopal episode Blood Pressure : */* mmHG Vent. Rate : 56 BPM Atrial Rate : 56 BPM P-R Int : 208 ms QRS Dur : 84 ms QT Int : 468 ms P-R-T Axes : 41 -16 33 degrees QTc Int : 451 ms Sinus bradycardia Left ventricular hypertrophy with repolarization abnormality ( R in aVL ) Abnormal ECG When compared with ECG of 10-FEB-2023 23:52, Sinus rhythm has replaced Atrial fibrillation Vent. rate has decreased BY 96 BPM Questionable change in QRS duration Criteria for Anteroseptal infarct are no longer present Confirmed by Yehuda Wan ([id number]) on 04/24/2023 7:24:55 AM Referred By: Confirmed By: Yehuda Wan
--- NOTE | 2023-04-20 19:42 | DR.EXTPAIN ---
HPI Time seen Time Seen by Provider: 04/20/23 19:42 PCP Primary Care Physician: pedro Complaint/Symptoms Chief Complaint Doctor Comments: Patient was sitting on the commode and called her daughter to assist her because she became nauseated. While waiting for assistance she became lightheaded and near syncopal and vomited bright red blood on the barhroom floor.Daughter states that patient takes an aspirin daily.She was taking eliquis until october 2022 secondary to h/o PE.Patient states that she had been having epigastric pain earlier in the day. Patient denies: chest pain,head injury,palpitations,hematochezia,neck or back pain. Chief Complaint:: She had syncopal episode at home after vomiting up appox 200 ml's of red colored emesis pt has swelling noted to lt ankle from fall at home pt denies chest pain or headache COVID-19 Coronavirus risk:travel/contact w/high risk person: No Has patient experienced Coronavirus symptoms: No Source History Provided: Patient Mode of arrival Mode of Arrival: EMS Timing Onset of Chief Complaint: 04/20/23 PMH PMH Past Medical History: Yes Past Medical History: Arthritis, Dementia and Hypertension Past Surgical History: Yes Surgical History: Hysterectomy and Other Family History History of Family Medical Conditions: Yes Family Medical History: Diabetes Mellitus and Hypertension Social History Does patient currently use any type of tobacco product: No Have you used tobacco products in the last 12 months: No Type of Tobacco Use: None Does any household member use tobacco: No Alcohol Use: None Do you use any recreational Drugs:: No Lives With: Family Lives Where: Home Travel Risk Coronavirus risk:travel/contact w/high risk person: No Has patient experienced Coronavirus symptoms: No Infectious screening In the last 2 months have you had wt loss of >10#?: NO Have you had fever, night sweats or hemotysis?: No Have you traveled outside the country in the last 6 months?: No Isolation: Standard ROS Review of Systems Constitutional: No Symptoms Reported Eyes: No Symptoms Reported ENTM: No Symptoms Reported Respiratoy: No Symptoms Reported Cardiovascular: Other (Near Syncope) Gastrointestinal/Abdominal: Abdominal Pain and Vomiting (hematemesis) Genitourinary: No Symptoms Reported Neurological: negative Anxiety, Headache or Weakness Musculoskeletal: No Symptoms Reported Integumentary: No Symptoms Reported Hematologic/Lymphatic: No Symptoms Reported Endocrine: No Symptoms Reported Psychiatric: No Symptoms Reported All Other Systems: Reviewed and Negative PE Vital Signs Vitals: Vital Signs Temperature 98.9 F Temperature 98.1 F Pulse Rate 105 Pulse Rate 54 Pulse Rate 53 Pulse Rate 54 Pulse Rate 56 Pulse Rate 53 Pulse Rate 59 Pulse Rate 54 Pulse Rate 53 Pulse Rate 53 Pulse Rate 54 Pulse Rate 54 Pulse Rate 56 Pulse Rate 57 Pulse Rate 56 Pulse Rate 53 Pulse Rate 53 Pulse Rate 55 Pulse Rate 55 Pulse Rate 55 Pulse Rate 56 Pulse Rate 58 Pulse Rate 59 Pulse Rate 58 Respiratory Rate 20 Respiratory Rate 19 Respiratory Rate 15 Respiratory Rate 17 Respiratory Rate 17 Respiratory Rate 18 Respiratory Rate 29 Respiratory Rate 15 Respiratory Rate 16 Respiratory Rate 19 Respiratory Rate 12 Respiratory Rate 14 Respiratory Rate 13 Respiratory Rate 7 Respiratory Rate 14 Respiratory Rate 12 Respiratory Rate 18 Respiratory Rate 24 Respiratory Rate 13 Respiratory Rate 32 Respiratory Rate 27 Respiratory Rate 17 Respiratory Rate 18 Blood Pressure [Left Arm] 140/69 Blood Pressure 155/98 Blood Pressure 140/69 Blood Pressure 148/70 Blood Pressure 143/76 Blood Pressure 141/73 Blood Pressure 133/66 Blood Pressure 126/63 Blood Pressure 120/69 Blood Pressure 122/63 O2 Sat by Pulse Oximetry 97 O2 Sat by Pulse Oximetry 98 O2 Sat by Pulse Oximetry 99 O2 Sat by Pulse Oximetry 97 O2 Sat by Pulse Oximetry 98 O2 Sat by Pulse Oximetry 97 O2 Sat by Pulse Oximetry 98 O2 Sat by Pulse Oximetry 97 O2 Sat by Pulse Oximetry 96 O2 Sat by Pulse Oximetry 98 O2 Sat by Pulse Oximetry 97 O2 Sat by Pulse Oximetry 98 General Limitations: No Limitations General Appearance: Alert and In No Apparent Distress Head Head Exam: Normal Inspection Eyes Eye exam: Normal Appearance ENT ENT Exam: Normal Exam Neck Neck Exam: Normal Inspection Chest Chest Inspection: Normal Inspection Respiratory Respiratory Exam: Normal Lung Sounds Bilat Respiratory Exam: Bilateral: Clear to Auscultation Cardiovascular Cardiovascular Exam: Regular Rate and Bradycardia Abdominal Exam Abdominal Exam: Normal Inspection, Normal Bowel Sounds and Soft Extremities Extremities Exam: Normal Inspection Lower Extremities Ankle Exam: Tenderness (left ankle) and Swelling (mild) Back Back Exam: Normal Inspection Neurological Neurological Exam: Alert, Oriented X3 and CN II-XII Intact Psychiatric Psychiatric Exam: Normal Affect and Normal Mood Skin Skin Exam: Warm, Dry, Intact and Normal Color MDM Differential Diagnosis Differential Diagnosis: Fracture (or dislocation Lt ankle) and Other (Obstruction,perforation,inflammation,anemia) COURSE Treatment Treatment: Patient was brought to a monitored room. She was hypotensive in the field.IV access was initiated in the field an patient was givenNS 500ml NS bolus. Patient 's labs were reviewed and revealed: elevated d-dimer 1.21/creat 1.00/wbc 6.8/Trop #1 9.5.EKG#1 revealed nonspecific t wave changes.Troponin #2 9.7 and EKG #2 junctional rhythm nonspecific t wave changes.CTA Chest revealed an ascending aortic aneurysm 4.6cm, mild pulmonary edema and a gastric mass.Abd/pelvic CT w/ contrast revealed gastric mass and upper endoscopy or GI series recommended by radiologist. Patient 's left ankle xray revealed a left distal fibula fracture and a splint was applied. Patient's daughter is concerned about getting patient to specialists to evaluate her gastric mass with the orthopedic injury. Discussed case with Dr Christie( Patient's pcp).Dr Christie will admit patient and Dr Adhikari ( [facility]) will be consulted. [facility] Labs Reviewed Laboratory Results Reviewed?: Yes 04/20/23 19:55 04/20/23 19:55 Laboratory: WBC 6.8 X10^3/uL (3.6-10.0) 04/20/23 19:55 RBC 3.10 X10^6/uL (3.5-5.4) L 04/20/23 19:55 Hgb 9.4 g/dL (12.0-16.0) L 04/20/23 19:55 Hct 27.6 % (36.0-47.0) L 04/20/23 19:55 MCV 89.0 fL (80.0-100.0) 04/20/23 19:55 MCH 30.3 pg (27.0-34.0) 04/20/23 19:55 MCHC 34.0 g/dL (33.0-35.0) 04/20/23 19:55 RDW 13.8 % (11.6-16.5) 04/20/23 19:55 Plt Count 225 X10^3/uL (150.0-450.0) 04/20/23 19:55 MPV 8.3 fL (7.4-11.0) 04/20/23 19:55 Neut % (Auto) 72.7 % (42.0-75.0) 04/20/23 19:55 Lymph % (Auto) 16.9 % (21.0-51.0) L 04/20/23 19:55 [place] % (Auto) 8.1 % (0.0-13.0) 04/20/23 19:55 Eos % (Auto) 1.9 % (0.9-2.9) 04/20/23 19:55 Baso % (Auto) 0.4 % (0.2-1.0) 04/20/23 19:55 Neut # (Auto) 5.0 x10^3/uL (2.2-4.8) H 04/20/23 19:55 Lymph # (Auto) 1.2 X10^3/uL (1.3-2.9) L 04/20/23 19:55 [place] # (Auto) 0.6 x10^3/uL (0.3-0.8) 04/20/23 19:55 Eos # (Auto) 0.1 x10^3/uL (0.0-0.2) 04/20/23 19:55 Baso # (Auto) 0.0 X10^3/uL (0.0-0.1) 04/20/23 19:55 Absolute Nucleated RBC 0.0 /100WBC 04/20/23 19:55 PT 14.4 SECONDS (11.8-14.3) 04/20/23 19:55 INR Target Range - 04/20/23 19:55 INR 1.14 (0.8-1.3) 04/20/23 19:55 APTT 29.2 SECONDS (22.9-36.5) 04/20/23 19:55 PTT Comment - 04/20/23 19:55 D-Dimer 1.21 ug/ml (0.0-0.57) H 04/20/23 19:55 Sodium 137 mmol/L (136-145) 04/20/23 19:55 Corrected Sodium 137 mmol/L (136-145) 04/20/23 19:55 Potassium 3.6 mmol/L (3.5-5.1) 04/20/23 19:55 Chloride 103 mmol/L (98-107) 04/20/23 19:55 Carbon Dioxide 29.2 mmol/L (21-32) 04/20/23 19:55 BUN 32 mg/dL (7-18) H 04/20/23 19:55 Creatinine 1.00 mg/dL (0.55-1.02) 04/20/23 19:55 Est GFR (MDRD) Af Amer > 60 (>60) 04/20/23 19:55 Est GFR (MDRD) Non-Af 56 (>60) L 04/20/23 19:55 Glucose 113 mg/dL (65-99) H 04/20/23 19:55 Calcium 7.9 mg/dL (8.5-10.1) L 04/20/23 19:55 Corrected Calcium 8.7 mg/dL (8.5-10.1) 04/20/23 19:55 Total Bilirubin 0.20 mg/dL (0.2-1.0) 04/20/23 19:55 AST 15 Units/L (15-37) 04/20/23 19:55 ALT 9 Units/L (12-78) L 04/20/23 19:55 Alkaline Phosphatase 75 Units/L (46-116) 04/20/23 19:55 Creatine Kinase 51 Units/L (26-192) 04/20/23 19:55 Troponin I High Sens 9.7 ng/L (4.0-60.0) 04/20/23 21:10 B-Natriuretic Peptide 109 pg/mL (0-79) H 04/20/23 19:55 Total Protein 5.9 g/dL (6.4-8.2) L 04/20/23 19:55 Albumin 3.0 g/dL (3.4-5.0) L 04/20/23 19:55 Globulin 2.9 g/dL (2.5-4.5) 04/20/23 19:55 Albumin/Globulin Ratio 1.0 Ratio (1.1-2.1) L 04/20/23 19:55 Amylase 49 Units/L (25-115) 04/20/23 19:55 Lipase 183 Units/L (73-393) 04/20/23 19:55 Specimen Type Clean catch urine 04/20/23 21:25 Urine Color Pale yellow (YELLOW) 04/20/23 21:25 Urine Appearance Clear (CLEAR) 04/20/23 21:25 Urine pH 7.0 (5.0 - 8.0) 04/20/23 21:25 Ur Specific [place] 1.010 (1.000-1.030) 04/20/23 21: Urine Protein Negative (NEGATIVE) 04/20/23: Urine Glucose (UA) Negative (NEGATIVE) 04/20/23: Urine Ketones Negative (NEGATIVE) 04/20/23: Urine Blood Negative (NEGATIVE) 04/20/23: Urine Nitrite Negative (NEGATIVE) 04/20/23: Urine Bilirubin Negative (NEGATIVE) 04/20/23: Urine Urobilinogen Normal (NORMAL) 04/20/23: Ur Leukocyte Esterase Negative (NEGATIVE) 04/20/23: XRAY XRAY Interpreted by: Radiologist X-ray Results: HISTORY RIGHT CHEST PAIN/EFFUSION, PNEUMONIA VS INFILTRATE STUDY CHEST W/O CON COMPARISON Chest x-ray of same day TECHNIQUE Axial CT was performed from the thoracic inlet to the upper abdomen without IV contrast. The axial sequences are reconstructed with multiplaner reformats. FINDINGS There is a moderate right-sided pleural effusion. There is patchy consolidation and interstitial septal thickening within the right lower lobe primarily. There is a region of organized masslike consolidation encompassing the right mainstem bronchus contiguous with the right hilar region. This is highly suspicious for potential bronchogenic mass and is not fully characterized without contrast. This region of interest measures at least 6.2 x 5.8 cm. Patchy subsegmental atelectasis of the right middle lobe. Moderate emphysema. Left lung is predominantly clear. No suspicious satellite nodules within the left lung. Central airway is patent. Thyroid gland is average size. There is multivessel coronary atherosclerosis as well as generalized atherosclerosis of the thoracic aorta and major tributaries. No significant pericardial effusion. A sub carinal lymph node measures at least 2.5 cm on image 28. The abnormal conglomerate soft tissue encompassing the right mainstem bronchus measures at least 4.3 x 3.6 cm, again being contiguous with the right lower lobe lateral hilar mass. There is thickening along the surface of the right major fissure. Enlarged right paratracheal lymph node measures approximately 1.9 cm. Limited imaging of the upper abdomen reveals a vague hypoattenuating lesion of the right hepatic lobe on image 53 measuring 2.6 cm, not fully characterized without contrast. However given the above findings, this is suspicious for potential metastatic deposit. The adrenal glands are symmetric. There is atrophy and cortical thinning of the left kidney with multiple small left renal cyst. Generalized atherosclerotic changes of the aorta and mesenteric tributaries are observed. Evaluation of the osseous structures reveals no aggressive bony lesions or acute osseous abnormalities. IMPRESSION Suspected right lower lobe lateral hilar mass contiguous with the mediastinum as it encircles and narrows the right mainstem bronchus, highly suspicious for primary bronchogenic malignancy. Enlarged sub carinal and paratracheal lymph nodes are observed Moderate right-sided pleural effusion Patchy airspace consolidation in interlobular septal thickening of the right lower lobe may be associated with postobstructive pneumonia, with lymphangitis carcinomatosis not altogether excluded Moderate emphysema Ill-defined hypoattenuating right hepatic lobe masses suspicious for potential metastatic disease. See above for additional chronic and age related degenerative imaging findings. Recommendations: If the patient can tolerate IV contrast, follow-up imaging with contrast may be recommended at the earliest convenience for more detailed characterization and staging of the above findings. Radiation dose reduction was achieved through individualized adjustment of kVP and/or mA, through adaptive statistical iterative reconstruction, and/or through automated tube current modulation. Electronically signed by: RITU GR (Apr 20, 2023 14:50:02) HISTORY She had syncopal episode at home after vomiting up appox 200 ml's of red colored emesis pt has swelling noted to lt ankle from fall at home pt denies chest pain or headache STUDY ABDOMEN/PELVIS WITH CON COMPARISON none TECHNIQUE Multiple axial images of the abdomen and pelvis were obtained from the lung bases to the pubic symphysis AFTER the administration of IV contrast. Dose reduction techniques including Automated Exposure Control (AEC) and adjustment of mA and kV were utilized. FINDINGS Please see concurrent CT angiography of the chest for findings in the lungs. Scattered aortic and branch vessel atherosclerotic calcifications. Circumscribed left hepatic lobe lesion spanning 2.8 centimeters demonstrating fluid density suggestive of cyst. Gallstones versus vascular calcifications near the gallbladder. The gallbladder is not inflamed. The kidneys excrete normally. The ureters taper normally. Normal spleen with small splenule. Pancreas is not inflamed. There is abnormal appearance of the stomach. There is a lobular filling defect within the fundus that could represent a gastric mass and warrants further evaluation. Food material is also present in the stomach. Extensive diverticulosis of the colon. No sign of appendicitis. There is mild hazy stranding in the small bowel mesentery, a nonspecific finding. No pelvic free fluid. No free air or bowel obstruction. Degenerative spinal changes. IMPRESSION Abnormal appearance of the stomach. A gastric mass may be present and further evaluation with upper endoscopy or upper GI series is suggested. Diverticulosis of the colon without complication. Additional findings as described. Electronically signed by: Luis Fontana (Apr 20, 2023 21:53:51) Exam:ANKLE, LEFT Indication: She had syncopal episode at home after vomiting up appox 200 ml's of red colored emesis pt has swelling noted to lt ankle from fall at home pt denies chest pain or headache Comparison: [None available] Findings: [There is a minimally displaced obliquely oriented fracture of the distal fibula with the fracture extending into the syndesmosis at the level of the tibial plafond (Domingo B fracture). There is no fracture of the medial or posterior malleolus. No ankle mortise asymmetry. Moderate soft tissue swelling within the lateral ankle. Enthesopathic change of the Achilles tendon and plantar fascia. IMPRESSION Minimally displaced oblique oriented fracture of the distal fibula with fracture extending into the syndesmosis at the level of the tibial plafond (Domingo B fracture). No malalignment of the ankle mortise to suggest instability. Electronically signed by: CAREY VARGAS (Apr 20, 2023 21:39:48) Opioid Opioid Risk Tool Age (Marcio box if 16-45): No History of Preadolescent Sexual Abuse: No Total: 0 Total Score Risk Category: Low Risk Copyright: Neymar SANCHEZ predicting aberrant behaviors Discharge Plan Diagnosis Discharge Problem: Gastric mass, Hematemesis, Closed left fibular fracture Discharge Plan Patient Disposition: 09 ADMITTED INPATIENT Condition: Stable Prescriptions: No Action escitalopram oxalate 5 mg tablet 5 mg PO DAILY Patient Comments: TAKE 1 TABLET BY MOUTH EVERY DAY quetiapine 25 mg Tablet 25 mg PO HS Qty: 30 3RF Rx Instructions: TAKE ONE TABLET AT BEDTIME meloxicam 7.5 mg tablet 7.5 mg PO QDAY aspirin 325 mg tablet,delayed release (DR/EC) 325 mg PO QDAY rivastigmine 4.6 mg/24 hour patch 24 hour 1 patch QDAY baclofen 5 mg tablet 5 mg PO BID diltiazem HCl 120 mg Capsule,Extended Release 24hr 120 mg PO HS 0RF metoprolol succinate 25 mg Tablet Extended Release 24 Hr 12.5 mg PO DAILY 0RF ciprofloxacin HCl [Cipro] 500 mg tablet 500 mg PO BID Qty: 28 0RF Rx Instructions: take one tablet twice a day for 14 days Health Concerns: Post Hospitalization: new medications and changes needed to prevent readmission or further decline. Pt educated and given instructions on all concerns. Plan of Treatment: Continue with present treatment and follow up plan. Pt is to keep follow up appointment as instructed and take medications as ordered. Orders to Discharge Patient Discharge Orders: Transfer (Routine); Ordered 04/21/23 Ordered By: Christa Malave Follow ups/Referrals Follow ups/Referrals: Gino Christie [Primary Care Provider] - 3 days Instructions Stand Alone Forms: Post Hospital Follow Up Care
[2023-04-20 20:08] LABS: BASOPHILS % (AUTO) 0.4 % (0.2-1.0); EOSINOPHILS # (AUTO) 0.1 x10^3/uL (0.0-0.2); EOSINOPHILS % (AUTO) 1.9 % (0.9-2.9); HEMATOCRIT 27.6 % (36.0-47.0); HEMOGLOBIN 9.4 g/dL (12.0-16.0); LYMPHOCYTES # (AUTO) 1.2 X10^3/uL (1.3-2.9); LYMPHOCYTES % (AUTO) 16.9 % (21.0-51.0); MEAN CORPUSCULAR HEMOGLOBIN 30.3 pg (27.0-34.0); MEAN PLATELET VOLUME 8.3 fL (7.4-11.0); MONOCYTES # (AUTO) 0.6 x10^3/uL (0.3-0.8); MONOCYTES % (AUTO) 8.1 % (0.0-13.0); NEUTROPHILS % (AUTO) 72.7 % (42.0-75.0); PLATELET COUNT 225 X10^3/uL (150.0-450.0); RED CELL DISTRIBUTION WIDTH 13.8 % (11.6-16.5); WHITE BLOOD COUNT 6.8 X10^3/uL (3.6-10.0)
[2023-04-20 20:15] LABS: INR 1.14 (0.8-1.3)
[2023-04-20 20:22] LABS: ALANINE AMINOTRANSFERASE 9 Units/L (12-78); ALKALINE PHOSPHATASE 75 Units/L (46-116); AMYLASE 49 Units/L (25-115); ASPARTATE AMINO TRANSFERASE 15 Units/L (15-37); BLOOD UREA NITROGEN 32 mg/dL (7-18); CALCIUM 7.9 mg/dL (8.5-10.1); CARBON DIOXIDE 29.2 mmol/L (21-32); CHLORIDE 103 mmol/L (98-107); COR CA(FOR HYPOALB) 8.7 mg/dL (8.5-10.1); COR NA(FOR HYPERGLY) 137 mmol/L (136-145); CREATINE KINASE 51 Units/L (26-192); GLUCOSE 113 mg/dL (65-99); LIPASE 183 Units/L (73-393); POTASSIUM 3.6 mmol/L (3.5-5.1); SODIUM 137 mmol/L (136-145); TOTAL PROTEIN 5.9 g/dL (6.4-8.2); eGFR NON BLACK RACES 56 (>60)
[2023-04-20] MEDS ORDERED: NS 100 ML IV 100 ML ONE (20:39)
[2023-04-20] MEDS ORDERED: OMNIPAQUE 350 mg/mL 100 mL BTL 100 ML ONE (20:39)
[2023-04-20 21:41] LABS: BILIRUBIN,URINE NEGATIVE (NEGATIVE); BLOOD/HEMOGLOBIN,URINE NEGATIVE (NEGATIVE); GLUCOSE, URINE NEGATIVE (NEGATIVE); KETONES,URINE NEGATIVE (NEGATIVE); LEUKOCYTE ESTERASE ,URINE NEGATIVE (NEGATIVE); NITRITES,URINE NEGATIVE (NEGATIVE); PROTEIN,URINE NEGATIVE (NEGATIVE); UROBILINOGEN,URINE NORMAL (NORMAL)
--- NOTE | 2023-04-20 21:41 | RAD ---
Exam:ANKLE, LEFTIndication: She had syncopal episode at home after vomiting up appox 200 ml's of red colored emesis pt has swelling noted to lt ankle from fall at home pt denies chest pain or headacheComparison: [None available]Findings: [There is a minimally displaced obliquely oriented fracture of the distal fibula with the fracture extending into the syndesmosis at the level of the tibial plafond (Domingo B fracture). There is no fracture of the medial or posterior malleolus. No ankle mortise asymmetry. Moderate soft tissue swelling within the lateral ankle.Enthesopathic change of the Achilles tendon and plantar fascia.IMPRESSIONMinimally displaced oblique oriented fracture of the distal fibula with fracture extending into the syndesmosis at the level of the tibial plafond (Domingo B fracture).No malalignment of the ankle mortise to suggest instability.Electronically signed by: CAREY VARGAS (Apr 20, 2023 21:39:48)
--- NOTE | 2023-04-20 21:49 | CT ---
HISTORYShe had syncopal episode at home after vomiting up appox 200 ml's of red colored emesis pt has swelling noted to lt ankle from fall at home pt denies chest pain or headacheSTUDYCTA CHESTCOMPARISONNoneTECHNIQUEMultiple axial images of the chest were obtained from the thoracic inlet to the upper abdomen after the administration of IV contrast timed for peak pulmonary arterial enhancement. 3D reconstructions utilizing axial MIPS imaging was performed and reviewed. Dose reduction techniques including Automated Exposure Control (AEC) and adjustment of mA and kV were utilized.FINDINGSAdequate bolus timing. Negative for pulmonary embolus.Limited evaluation of the upper abdomen demonstrates no acute process. Gallstone is suspected. Circumscribed left hepatic lobe hypodensity spanning 2.9 centimeters possibly hepatic cyst, incompletely evaluated.There is filling defect within the stomach however food is also present within the stomach. A gastric mass could be present, incompletely evaluated.The ascending aorta spans 4.6 centimeters, enlarged. The heart is enlarged. The main pulmonary artery is enlarged spanning 3.2 centimeters which can be seen in the setting of pulmonary arterial hypertension.Mild ground-glass airspace infiltrates bilateral lower lobes.IMPRESSIONNegative for pulmonary embolus.Mild ground-glass airspace infiltrates in the lung bases suggest mild pulmonary edema.Possible gastric mass for which follow-up is suggested. Upper GI series or endoscopy should be considered for further detail of the stomach.Marked cardiomegaly.Ascending aortic aneurysmal dilatation.Additional findings as describedElectronically signed by: Luis Fontana (Apr 20, 2023 21:48:30)
--- NOTE | 2023-04-20 21:55 | CT ---
HISTORYShe had syncopal episode at home after vomiting up appox 200 ml's of red colored emesis pt has swelling noted to lt ankle from fall at home pt denies chest pain or headacheSTUDYABDOMEN/PELVIS WITH CONCOMPARISONnoneTECHNIQUEMultiple axial images of the abdomen and pelvis were obtained from the lung bases to the pubic symphysis AFTER the administration of IV contrast. Dose reduction techniques including Automated Exposure Control (AEC) and adjustment of mA and kV were utilized.FINDINGSPlease see concurrent CT angiography of the chest for findings in the lungs.Scattered aortic and branch vessel atherosclerotic calcifications. Circumscribed left hepatic lobe lesion spanning 2.8 centimeters demonstrating fluid density suggestive of cyst. Gallstones versus vascular calcifications near the gallbladder.The gallbladder is not inflamed. The kidneys excrete normally. The ureters taper normally.Normal spleen with small splenule. Pancreas is not inflamed. There is abnormal appearance of the stomach. There is a lobular filling defect within the fundus that could represent a gastric mass and warrants further evaluation. Food material is also present in the stomach.Extensive diverticulosis of the colon. No sign of appendicitis. There is mild hazy stranding in the small bowel mesentery, a nonspecific finding. No pelvic free fluid. No free air or bowel obstruction. Degenerative spinal changes.IMPRESSIONAbnormal appearance of the stomach. A gastric mass may be present and further evaluation with upper endoscopy or upper GI series is suggested.Diverticulosis of the colon without complication.Additional findings as described.Electronically signed by: Luis Fontana (Apr 20, 2023 21:53:51)
[2023-04-20 21:58] LABS: APPEARANCE,URINE CLEAR (CLEAR); COLOR,URINE PALE YELLOW (YELLOW)
--- NOTE | 2023-04-20 22:13 | EKG ---
Test Reason : syncope Blood Pressure : */* mmHG Vent. Rate : 52 BPM Atrial Rate : * BPM P-R Int : * ms QRS Dur : 84 ms QT Int : 496 ms P-R-T Axes : * -10 -46 degrees QTc Int : 461 ms Sinus bradycardia Nonspecific ST and T wave abnormality Abnormal ECG When compared with ECG of 20-APR-2023 19:30, (Unconfirmed) Junctional rhythm has replaced Sinus rhythm Confirmed by Yehuda Wan ([id number]) on 04/24/2023 7:24:48 AM Referred By: Confirmed By: Yehuda Wan
[2023-04-21 02:00] VITALS: BMI 25.3
[2023-04-21] MEDS ORDERED: K-DUR TAB 20 MEQ PO SCH ×3 (02:00→09:00)
[2023-04-21] MEDS ORDERED: CONSULT PHARMACY - POTASSIUM & MAGNESIUM XX SCH ×2 (02:00→07:00)
[2023-04-21] MEDS ORDERED: VISTARIL PO PRN (02:18)
[2023-04-21 05:12] LABS: BASOPHILS % (AUTO) 0.3 % (0.2-1.0); EOSINOPHILS # (AUTO) 0.1 x10^3/uL (0.0-0.2); EOSINOPHILS % (AUTO) 1.8 % (0.9-2.9); HEMATOCRIT 24.5 % (36.0-47.0); HEMOGLOBIN 8.5 g/dL (12.0-16.0); LYMPHOCYTES % (AUTO) 38.2 % (21.0-51.0); MEAN CORPUSCULAR HEMOGLOBIN 30.4 pg (27.0-34.0); MEAN CORPUSCULAR HGB CONC 34.7 g/dL (33.0-35.0); MEAN CORPUSCULAR VOLUME 87.7 fL (80.0-100.0); MEAN PLATELET VOLUME 8.7 fL (7.4-11.0); MONOCYTES # (AUTO) 0.5 x10^3/uL (0.3-0.8); MONOCYTES % (AUTO) 9.7 % (0.0-13.0); NEUTROPHILS # (AUTO) 2.6 x10^3/uL (2.2-4.8); PLATELET COUNT 219 X10^3/uL (150.0-450.0); RED BLOOD COUNT 2.79 X10^6/uL (3.5-5.4); RED CELL DISTRIBUTION WIDTH 14.1 % (11.6-16.5); WHITE BLOOD COUNT 5.2 X10^3/uL (3.6-10.0)
[2023-04-21 05:26] LABS: ALANINE AMINOTRANSFERASE 8 Units/L (12-78); ALBUMIN 2.8 g/dL (3.4-5.0); ALKALINE PHOSPHATASE 68 Units/L (46-116); ASPARTATE AMINO TRANSFERASE 15 Units/L (15-37); BLOOD UREA NITROGEN 38 mg/dL (7-18); CALCIUM 7.9 mg/dL (8.5-10.1); CARBON DIOXIDE 26.6 mmol/L (21-32); CHLORIDE 104 mmol/L (98-107); COR CA(FOR HYPOALB) 8.9 mg/dL (8.5-10.1); CREATININE 0.77 mg/dL (0.55-1.02); GLUCOSE 86 mg/dL (65-99); POTASSIUM 3.7 mmol/L (3.5-5.1); SODIUM 137 mmol/L (136-145); TOTAL PROTEIN 5.6 g/dL (6.4-8.2); eGFR NON BLACK RACES > 60 (>60)
--- NOTE | 2023-04-21 06:00 | RAD ---
STUDY: FRONTAL VIEW CHESTCOMPARISON: February 10, 2023HISTORY: SyncopeFINDINGS:Left lower lung zone airspace disease is seen which was not present on the prior examThe heart size is within normal limits.The mediastinum is unremarkable.There is no evidence of pleural effusion or gross pneumothorax.The trachea is midline.IMPRESSION:Left lower lung zone airspace disease is seen which was not present on the prior examElectronically signed by: Michael Comer (Apr 21, 2023 05:59:58)
[2023-04-21] MEDS ORDERED: MOBIC TAB 15 MG PO SCH (09:00)
[2023-04-21] MEDS ORDERED: PATIENT'S HOME MEDICATION (Meloxicam 7.5 mg tablet) PO SCH (09:00)
[2023-04-21] MEDS: EXELON PATCH TD SCH (10:11)
[2023-04-21] MEDS: TOPROL XL PO SCH (11:17)
[2023-04-21] MEDS: LEXAPRO PO SCH (11:17)
[2023-04-21] MEDS ORDERED: DIPRIVAN VIAL 20 ML ONE (11:22)
[2023-04-21] MEDS ORDERED: XYLOCAINE 2 % (PLAIN) ONE (11:37)
[2023-04-21] MEDS ORDERED: NS 500 ML IV 500 ML IV ONE (11:39)
[2023-04-21] MEDS ORDERED: PEPCID 20 MG VIAL ONE (11:41)
[2023-04-21] MEDS: PEPCID 20 MG VIAL 20 MG in NS 50 ML IV 50 ML IV SCH ×2 (12:06→20:12)
[2023-04-21] MEDS: PROTONIX INJ 40 MG VIAL IVP SCH ×2 (12:07→20:13)
[2023-04-21] MEDS: NS + KCL 20 MEQ/L 1,000 ML IV SCH (12:08)
[2023-04-21] MEDS: MAG-OX TAB PO SCH ×2 (14:06→20:13)
[2023-04-21] MEDS: CARAFATE PO SCH ×2 (16:43→20:13)
--- NOTE | 2023-04-21 17:59 | DR.CONSULT ---
CONSULT Consultation for Day of: Date: 04/21/23 Chief Complaint Chief Complaint: Left ankle pain Allergies Allergies Allergy/AdvReac Type Severity Reaction Status Date / Time No Known Drug Allergies Allergy Verified 02/10/23 19:41 History of Present Illness History of Present Illness: Anat is an 83 y/o F admitted to [facility] with the chief complaints of Left ankle pain and emesis. Per her report she had a syncopal episode yesterday at home while in the bathroom, causing her to fall and hit a trash can. At the time she sustained severe pain to the Left ankle with the inability to bear weight on the LLE. She also had an episode of coffee ground emesis. She was transported to [facility] and admitted to the hospitalist service for further workup. She had an EGD performed by Dr Onofre chiu. Orthopedics was consulted for further recommendations. She reports a sharp pain in the ankle with attempted movement. Denies radiating pain or paresthesias at rest. Denies a history of ankle surgery or pain prior to this event. Past Medical History Past Medical History: Diabetes and Hypertension Past Surgical History Surgical History: Hysterectomy and Other Family History Family Medical History: Diabetes Mellitus Social History Does patient currently use any type of tobacco product: No Have you used tobacco products in the last 12 months: No Type of Tobacco Use: None Does any household member use tobacco: No Alcohol Use: None Drug Use: None Medications Home Medications: No Known Drug Allergies Allergy (Verified 02/10/23 19:41) CONTINUE taking the following medications escitalopram oxalate 10 mg tablet 10 mg PO QDAY 04/21/23 [History] metoprolol succinate 25 mg tablet,extended release 24 hr 12.5 mg PO QDAY 04/21/23 [History] Review of Systems Constitutional: No Symptoms Reported Eyes: No Symptoms Reported ENT: No Symptoms Reported Respiratory: No Symptoms Reported Cardiovascular: No Symptoms Reported Gastrointestinal: Vomiting Musculoskeletal: Leg Pain Skin: No Symptoms Reported Neurological: No Symptoms Reported Physical Exam Vital Signs: Vital Signs Temperature 97.9 F Pulse Rate 63 Pulse Rate 61 Pulse Rate 61 Pulse Rate 63 Pulse Rate 62 Pulse Rate 61 Pulse Rate 61 Pulse Rate 60 Pulse Rate 61 Pulse Rate 63 Pulse Rate 62 Pulse Rate 63 Pulse Rate 63 Pulse Rate 65 Pulse Rate 71 Pulse Rate 67 Pulse Rate 67 Pulse Rate 69 Pulse Rate 53 Pulse Rate 54 Pulse Rate 56 Pulse Rate 55 Pulse Rate 58 Pulse Rate 65 Pulse Rate 58 Respiratory Rate 11 Respiratory Rate 17 Respiratory Rate 16 Respiratory Rate 16 Respiratory Rate 17 Respiratory Rate 17 Respiratory Rate 23 Respiratory Rate 16 Respiratory Rate 13 Respiratory Rate 23 Respiratory Rate 24 Respiratory Rate 20 Respiratory Rate 18 Respiratory Rate 14 Respiratory Rate 17 Respiratory Rate 33 Respiratory Rate 27 Respiratory Rate 28 Respiratory Rate 10 Respiratory Rate 13 Respiratory Rate 11 Respiratory Rate 9 Respiratory Rate 23 Respiratory Rate 9 Blood Pressure 136/70 Blood Pressure 136/69 Blood Pressure 138/66 Blood Pressure 135/67 Blood Pressure 143/68 Blood Pressure 144/76 Blood Pressure 146/72 Blood Pressure 128/67 Blood Pressure 130/67 Blood Pressure 136/77 Blood Pressure 131/72 Blood Pressure 131/69 Blood Pressure 132/65 Blood Pressure 138/65 Blood Pressure 153/70 Blood Pressure 153/83 Blood Pressure 153/84 Blood Pressure 153/84 Blood Pressure 137/72 Blood Pressure 146/80 Blood Pressure 146/80 Blood Pressure 141/76 Blood Pressure 139/73 Blood Pressure 144/77 Blood Pressure 135/66 O2 Sat by Pulse Oximetry 100 O2 Sat by Pulse Oximetry 97 O2 Sat by Pulse Oximetry 97 O2 Sat by Pulse Oximetry 100 O2 Sat by Pulse Oximetry 100 O2 Sat by Pulse Oximetry 100 O2 Sat by Pulse Oximetry 100 O2 Sat by Pulse Oximetry 100 O2 Sat by Pulse Oximetry 100 O2 Sat by Pulse Oximetry 100 O2 Sat by Pulse Oximetry 100 O2 Sat by Pulse Oximetry 100 O2 Sat by Pulse Oximetry 99 O2 Sat by Pulse Oximetry 100 O2 Sat by Pulse Oximetry 100 O2 Sat by Pulse Oximetry 100 O2 Sat by Pulse Oximetry 100 O2 Sat by Pulse Oximetry 100 O2 Sat by Pulse Oximetry 100 O2 Sat by Pulse Oximetry 100 O2 Sat by Pulse Oximetry 100 O2 Sat by Pulse Oximetry 98 O2 Sat by Pulse Oximetry 97 O2 Sat by Pulse Oximetry 99 O2 Sat by Pulse Oximetry 96 Oriented: Time, Person and Place Ear: Normal Nose: Normal Throat: Normal Respiratory: Clear Throughout Cardiovascular: Normal Musculoskeletal: Ankle (Short leg splint in place. Able to move all toes on command. Brisk capillary refill to all toes.) Psychiatric: Normal Affect: Normal Speech Pattern: Clear and Appropriate Plan (1) Fibula fracture: Status: Acute Narrative Support Text: Her xrays from [facility] demonstrate a non-displaced Left fibular fracture. This injury is stable and does not require operative treatment. She may be transitioned to a CAM walking boot and be WBAT to the LLE with the boot in place. If no boot is available then I recommend she remain NWB in the short leg splint for now. No surgical indications. She may ice and elevate the extremity to reduce swelling. She may follow up with us on an outpatient basis for further assessment. Orthopedics will sign off at this time, Thank you for the consult.
[2023-04-21] MEDS: CARDIZEM CD 120 MG 24-HR PO SCH (20:12)
[2023-04-21] MEDS: SEROquel TAB 25 mg PO SCH (20:12)
--- NOTE | 2023-04-21 21:45 | DR.H&P ---
H&P - History & Physical for Day of: H&P Date: 04/21/23 - Chief Complaint Chief Complaint: COUGHING UP BLOOD, LEFT ANKLE PAIN AND SWELLING, SYNCOPE - History of Present Illness History of Present Illness: IS A 83 YEAR OLD PATIENT OF OURS. SHE PRESENTED TO THE ER WITH COMPLAINTS OF VOMITING UP APPROXIMATELY 200ML OF BRIGHT RED BLOOD PRIOR TO ARRIVAL. PATIENT REPORTS THAT SHE WAS SITTING ON THE COMMODE WHEN SHE BECAME NAUSEATED. WHILE SHE WAS WAITING FOR ASSISTANCE FROM HER DAUGHTER, SHE PASSED OUT ON THE BATHROOM FLOOR. PATIENT REPORTS THAT SHE HAD BEGAN HAVING ABDOMINAL PAIN EARLIER IN THE DAY. AFTER HER SYNCOPAL EPISODE, SHE HAD LEFT ANKLE PAIN AND SWELLING. SHE DENIES CHEST PAIN OR HEADACHE. HER PMH INCLUDES ARTHRITIS, DEMENTIA, AND HTN. SHE TAKES AN ASPIRIN DAILY. ON ARRIVAL TO THE ER, HER VITALS WERE: 98.1-58-18-98%-122/63. LABS WERE OBTAINED. WBC 6.8, RBC 3.10, HGB 9.4, HCT 27.6, PLT COUNT 225, D-DIMER 1.21, PT 14.4, INR 1.14, SODIUM 137, POTASSIUM 3.6, CHLORIDE 103, CARBON DIOXIDE 29.2, BUN 32, CREATININE 1.00, GLUCOSE 113, CALCIUM 7.9, TOTAL BILI 0.20, AST 15, ALT 9, ALK PHOS 75, BNP 109, TOTAL PROTEIN 5.9, ALBUMIN 3.0, TROPONIN 9.5, AMYLASE 49, LIPASE 183. URINALYSIS WAS OBTAINED AND WAS UNREMARKABLE. A CHEST XRAY WAS OBTAINED AND REVEALED: Left lower lung zone airspace disease is seen which was not present on the prior exam. A LEFT ANKLE XRAY WAS OBTAINED AND REVEALED: Minimally displaced oblique oriented fracture of the distal fibula with fracture extending into the syndesmosis at the level of the tibial plafond (Fang B fracture). No malalignment of the ankle mortise to suggest instability. A CHEST CTA WAS OBTAINED AND REVEALED: Negative for pulmonary embolus. Mild ground-glass airspace infiltrates in the lung bases. suggest mild pulmonary edema. Possible gastric mass for which follow-up is suggested. Upper GI series or endoscopy should be considered for further detail of the stomach. Marked cardiomegaly. Ascending aortic aneurysmal dilatation. AN ABDOMEN/PELVIS CT WITH CONTRAST WAS OBTAINED AND REVEALED: Abnormal appearance of the stomach. A gastric mass may be present and further evaluation with upper endoscopy or upper GI series is suggested. Diverticulosis of the colon without complication. EKG REVEALED: SINUS BRADYCARDIA WITH HR 56 BPM. IN THE ER, SHE WAS GIVEN K-DUR 20MEQ PO X 1. SHE WAS ADMITTED TO THE HOSPITAL OBSERVATION STATUS FOR FURTHER EVALUATION AND TREATMENT OF GASTRIC MASS, HEMATEMESIS, ANEMIA, LEFT FANG B FX. SHE WAS STARTED ON NORMAL SALINE WITH 20 MEQ KCL AT 50 ML/HR, FAMOTIDINE 20MG IV Q12H, PROTONIX 40MG IV BID. HER HOME MEDICATIONS OF CARDIZEM CD, LEXAPRO, VISTARIL, MAG OX, TOPROL, SEROQUEL, EXELON PATCH WERE RESUMED. WE PLAN TO CONSULT FOR POSSIBLE EGD. OTHERWISE, WE WILL FOLLOW UP WITH AM LABS AND CONTINUE TO MONITOR. TIME SPENT ON CLINICAL ASSESSMENT, REVIEWING LABS AND IMAGING, DECISION MAKING, AND DOCUMENTATION GREATER THAN 75 MINUTES. - Past Medical History Past Medical History: Arthritis, Dementia, Hypertension - Past Surgical History Surgical History: Hysterectomy, Other - Family History Family Medical History: Diabetes Mellitus - Social History Does patient currently use any type of tobacco product: No Have you used tobacco products in the last 12 months: No Type of Tobacco Use: None Does any household member use tobacco: No Alcohol Use: None Drug Use: None - Review of Systems Constitutional: Weakness Eyes: No Symptoms Reported ENT: No Symptoms Reported Respiratory: No Symptoms Reported Cardiovascular: No Symptoms Reported Gastrointestinal: Vomiting, Abdominal Pain, Other (VOMITING BLOOD ) Genitourinary: No Symptoms Reported Musculoskeletal: See HPI, Other (LEFT ANKLE PAIN AND SWELLING ) Skin: No Symptoms Reported Neurological: Weakness - Physical Exam Vital Signs: Vital Signs Temperature 97.2 F Temperature 97.9 F Pulse Rate 64 Pulse Rate 69 Pulse Rate 71 Pulse Rate 81 Pulse Rate 80 Pulse Rate 81 Pulse Rate 66 Pulse Rate 63 Pulse Rate 61 Pulse Rate 61 Pulse Rate 63 Pulse Rate 62 Pulse Rate 61 Pulse Rate 61 Pulse Rate 60 Pulse Rate 61 Pulse Rate 63 Pulse Rate 62 Pulse Rate 63 Pulse Rate 63 Pulse Rate 65 Pulse Rate 71 Respiratory Rate 16 Respiratory Rate 18 Respiratory Rate 29 Respiratory Rate 28 Respiratory Rate 28 Respiratory Rate 26 Respiratory Rate 16 Respiratory Rate 11 Respiratory Rate 17 Respiratory Rate 16 Respiratory Rate 16 Respiratory Rate 17 Respiratory Rate 17 Respiratory Rate 23 Respiratory Rate 16 Respiratory Rate 13 Respiratory Rate 23 Respiratory Rate 24 Respiratory Rate 20 Respiratory Rate 18 Respiratory Rate 14 Respiratory Rate 17 Blood Pressure 141/71 Blood Pressure 142/70 Blood Pressure 157/88 Blood Pressure 147/81 Blood Pressure 152/75 Blood Pressure 142/74 Blood Pressure 136/70 Blood Pressure 136/69 Blood Pressure 138/66 Blood Pressure 135/67 Blood Pressure 143/68 Blood Pressure 144/76 Blood Pressure 146/72 Blood Pressure 128/67 Blood Pressure 130/67 Blood Pressure 136/77 Blood Pressure 131/72 Blood Pressure 131/69 Blood Pressure 132/65 Blood Pressure 138/65 Blood Pressure 153/70 O2 Sat by Pulse Oximetry 99 O2 Sat by Pulse Oximetry 100 O2 Sat by Pulse Oximetry 100 O2 Sat by Pulse Oximetry 100 O2 Sat by Pulse Oximetry 100 O2 Sat by Pulse Oximetry 99 O2 Sat by Pulse Oximetry 100 O2 Sat by Pulse Oximetry 100 O2 Sat by Pulse Oximetry 97 O2 Sat by Pulse Oximetry 97 O2 Sat by Pulse Oximetry 100 O2 Sat by Pulse Oximetry 100 O2 Sat by Pulse Oximetry 100 O2 Sat by Pulse Oximetry 100 O2 Sat by Pulse Oximetry 100 O2 Sat by Pulse Oximetry 100 O2 Sat by Pulse Oximetry 100 O2 Sat by Pulse Oximetry 100 O2 Sat by Pulse Oximetry 100 O2 Sat by Pulse Oximetry 99 O2 Sat by Pulse Oximetry 100 O2 Sat by Pulse Oximetry 100 Oriented: Time, Person, Place Eyes: Normal Ear: Normal Nose: Normal Throat: Normal Respiratory: Diminished Throughout Cardiovascular: Normal : Normal Auscultation: Bowel Sounds: Normal Palpation: Normal Tenderness: Diffuse, Mild Skin: Normal Musculoskeletal: Left, Ankle, Swelling, Tender Psychiatric: Normal Mood Description: Calm Affect: Normal - Assessment/Plan (1) Gastric mass Status: Acute Plan: ADMIT, CONSULT GI, NORMAL SALINE WITH 20 MEQ KCL AT 50 ML/HR, FAMOTIDINE 20MG IV Q12H, PROTONIX 40MG IV BID. HER HOME MEDICATIONS OF CARDIZEM CD, LEXAPRO, VISTARIL, MAG OX, TOPROL, SEROQUEL, EXELON PATCH WERE RESUMED. (2) Hematemesis Qualifiers: Nausea presence: with nausea Qualified Code(s): K92.0 - Hematemesis Status: Acute (3) Anemia Qualifiers: Anemia type: iron deficiency Iron deficiency anemia type: chronic blood loss Qualified Code(s): D50.0 - Iron deficiency anemia secondary to blood loss (chronic) Status: Acute (4) Closed left fibular fracture Qualifiers: Encounter type: initial encounter Fibula location: distal Fracture morphology: unspecified fracture morphology Qualified Code(s): S82.832A - Other fracture of upper and lower end of left fibula, initial encounter for closed fracture Status: Acute - Allergies Allergies/Adverse Reactions: Allergies Allergy/AdvReac Type Severity Reaction Status Date / Time No Known Drug Allergies Allergy Verified 02/10/23 19:41 - Medications Home Medications: Home Medications Medication Instructions Recorded Confirmed aspirin 325 mg tablet,delayed 325 mg PO QDAY 02/10/23 04/21/23 release meloxicam 7.5 mg tablet 7.5 mg PO QDAY 02/10/23 04/21/23 rivastigmine 4.6 mg/24 hour 1 patch QDAY 02/10/23 04/21/23 transdermal patch escitalopram oxalate 10 mg tablet 10 mg PO QDAY 04/21/23 04/21/23 metoprolol succinate 25 mg 12.5 mg PO QDAY 04/21/23 04/21/23 tablet,extended release 24 hr Previous Rx's Medication Instructions Recorded diltiazem HCl 120 mg 120 mg PO HS 02/15/23 capsule,extended release 24 hr
[2023-04-22] MEDS: NS + KCL 20 MEQ/L 1,000 ML IV SCH ×3 (02:04→18:36)
[2023-04-22 05:34] LABS: BASOPHILS % (AUTO) 0.5 % (0.2-1.0); EOSINOPHILS # (AUTO) 0.1 x10^3/uL (0.0-0.2); EOSINOPHILS % (AUTO) 2.9 % (0.9-2.9); HEMATOCRIT 24.9 % (36.0-47.0); HEMOGLOBIN 8.5 g/dL (12.0-16.0); LYMPHOCYTES % (AUTO) 40.5 % (21.0-51.0); MEAN CORPUSCULAR HEMOGLOBIN 30.2 pg (27.0-34.0); MEAN CORPUSCULAR HGB CONC 34.1 g/dL (33.0-35.0); MEAN CORPUSCULAR VOLUME 88.7 fL (80.0-100.0); MEAN PLATELET VOLUME 8.8 fL (7.4-11.0); MONOCYTES # (AUTO) 0.4 x10^3/uL (0.3-0.8); MONOCYTES % (AUTO) 8.7 % (0.0-13.0); NEUTROPHILS # (AUTO) 2.3 x10^3/uL (2.2-4.8); NEUTROPHILS % (AUTO) 47.4 % (42.0-75.0); PLATELET COUNT 220 X10^3/uL (150.0-450.0); RED CELL DISTRIBUTION WIDTH 13.8 % (11.6-16.5); WHITE BLOOD COUNT 4.8 X10^3/uL (3.6-10.0)
[2023-04-22 05:53] LABS: ALANINE AMINOTRANSFERASE 7 Units/L (12-78); ALBUMIN 2.8 g/dL (3.4-5.0); ALKALINE PHOSPHATASE 65 Units/L (46-116); ASPARTATE AMINO TRANSFERASE 16 Units/L (15-37); BLOOD UREA NITROGEN 23 mg/dL (7-18); CALCIUM 7.6 mg/dL (8.5-10.1); CARBON DIOXIDE 26.7 mmol/L (21-32); CHLORIDE 109 mmol/L (98-107); COR CA(FOR HYPOALB) 8.6 mg/dL (8.5-10.1); CREATININE 0.85 mg/dL (0.55-1.02); GLUCOSE 77 mg/dL (65-99); POTASSIUM 3.7 mmol/L (3.5-5.1); SODIUM 143 mmol/L (136-145); TOTAL PROTEIN 5.5 g/dL (6.4-8.2); eGFR NON BLACK RACES > 60 (>60)
[2023-04-22] MEDS ORDERED: LEXAPRO ONE (08:21)
[2023-04-22] MEDS: EXELON PATCH TD SCH (08:26)
[2023-04-22] MEDS: PROTONIX INJ 40 MG VIAL IVP SCH ×2 (08:26→20:31)
[2023-04-22] MEDS: MAG-OX TAB PO SCH ×2 (08:27→20:32)
[2023-04-22] MEDS: TOPROL XL PO SCH (08:27)
[2023-04-22] MEDS: LEXAPRO PO SCH (08:27)
[2023-04-22] MEDS: CARAFATE PO SCH ×4 (08:27→20:31)
[2023-04-22] MEDS: PEPCID 20 MG VIAL 20 MG in NS 50 ML IV 50 ML IV SCH ×2 (08:27→20:31)
[2023-04-22] MEDS ORDERED: CONSULT PHARMACY - POTASSIUM & MAGNESIUM XX SCH (09:00)
[2023-04-22] MEDS ORDERED: K-DUR TAB 20 MEQ PO SCH (10:00)
[2023-04-22] MEDS ORDERED: NS IV ONE (12:00)
[2023-04-22] MEDS ORDERED: INFED OR DEXFERRUM IV ONE (12:00)
[2023-04-22] MEDS: CARDIZEM CD 120 MG 24-HR PO SCH (20:31)
[2023-04-22] MEDS: SEROquel TAB 25 mg PO SCH (20:31)
[2023-04-23 00:13] VITALS: TEMP 98.4
[2023-04-23] MEDS: NS + KCL 20 MEQ/L 1,000 ML IV SCH ×2 (03:07→04:51)
[2023-04-23 05:11] LABS: BASOPHILS % (AUTO) 0.6 % (0.2-1.0); EOSINOPHILS # (AUTO) 0.3 x10^3/uL (0.0-0.2); EOSINOPHILS % (AUTO) 4.7 % (0.9-2.9); HEMATOCRIT 24.7 % (36.0-47.0); HEMOGLOBIN 8.4 g/dL (12.0-16.0); LYMPHOCYTES # (AUTO) 2.2 X10^3/uL (1.3-2.9); LYMPHOCYTES % (AUTO) 38.9 % (21.0-51.0); MEAN CORPUSCULAR HEMOGLOBIN 30.1 pg (27.0-34.0); MEAN CORPUSCULAR HGB CONC 34.2 g/dL (33.0-35.0); MEAN CORPUSCULAR VOLUME 87.9 fL (80.0-100.0); MEAN PLATELET VOLUME 8.8 fL (7.4-11.0); MONOCYTES # (AUTO) 0.5 x10^3/uL (0.3-0.8); MONOCYTES % (AUTO) 8.7 % (0.0-13.0); NEUTROPHILS # (AUTO) 2.6 x10^3/uL (2.2-4.8); NEUTROPHILS % (AUTO) 47.1 % (42.0-75.0); PLATELET COUNT 217 X10^3/uL (150.0-450.0); RED BLOOD COUNT 2.81 X10^6/uL (3.5-5.4); WHITE BLOOD COUNT 5.5 X10^3/uL (3.6-10.0)
[2023-04-23 05:28] LABS: ALANINE AMINOTRANSFERASE 9 Units/L (12-78); ALBUMIN 2.8 g/dL (3.4-5.0); ALKALINE PHOSPHATASE 70 Units/L (46-116); ASPARTATE AMINO TRANSFERASE 15 Units/L (15-37); BLOOD UREA NITROGEN 11 mg/dL (7-18); CARBON DIOXIDE 28.7 mmol/L (21-32); CHLORIDE 106 mmol/L (98-107); CREATININE 0.86 mg/dL (0.55-1.02); GLUCOSE 88 mg/dL (65-99); POTASSIUM 3.7 mmol/L (3.5-5.1); SODIUM 141 mmol/L (136-145); TOTAL PROTEIN 5.6 g/dL (6.4-8.2); eGFR NON BLACK RACES > 60 (>60)
[2023-04-23] MEDS ORDERED: CONSULT PHARMACY - POTASSIUM & MAGNESIUM XX SCH (08:00)
[2023-04-23] MEDS ORDERED: LEXAPRO ONE (08:28)
[2023-04-23] MEDS: TOPROL XL PO SCH (08:48)
[2023-04-23] MEDS: LEXAPRO PO SCH (08:48)
[2023-04-23] MEDS: CARAFATE PO SCH ×2 (08:48→12:00)
[2023-04-23] MEDS: PEPCID 20 MG VIAL 20 MG in NS 50 ML IV 50 ML IV SCH (08:49)
[2023-04-23] MEDS: EXELON PATCH TD SCH (08:49)
[2023-04-23] MEDS: PROTONIX INJ 40 MG VIAL IVP SCH (08:49)
[2023-04-23] MEDS ORDERED: K-DUR TAB 20 MEQ PO SCH (09:00)
[2023-04-23 10:55] VITALS: O2SAT 97
[2023-04-23 11:47] VITALS: BP 120/56; PULSE 53; RESP 11
[2023-04-23] MEDS: MAG-OX TAB PO SCH (12:00)
== END 2023-04-23 12:55 | disposition home or self-care (01) ==
LOC: ER 19:01 → ICU 19:01
PROVIDERS: ADMIT Internal Medicine; ATTEND Internal Medicine